=== PATIENT | female | born 1960 | race Hispanic/Latino ===

== ENCOUNTER 2017-03-24 16:58 | Inpatient (IN) | payer MEDICAID ==
[~2017-03-24] VITALS: Ht 167.6 cm; Wt 128.5 kg
[~2017-03-24 16:58] MED LIST: AEC81 PO; ALBU6.7H IH; BUDE10.2 IH; CLOP75TA32 PO; DOXA1TAB2 PO; FURO20TA4 PO; GABA-531 PO; INSLAN SQ; INSU100C14 SQ; METO75TA PO; MONT10TA24 PO; NITR0.4T SL
[2017-03-24 17:28] LABS: BASOPHILS % (AUTO) 0.8 % (0.0-5.0); HEMATOCRIT 23.2 % (36-48); LYMPHOCYTES % (AUTO) 4.6 % (21.0-51.0); MEAN CORPUSCULAR HEMOGLOBIN 28.8 pg (27.0-33.0); MEAN CORPUSCULAR HGB CONC 32.8 g/dL (32.0-36.0); MEAN CORPUSCULAR VOLUME 87.8 fL (79-99); NEUTROPHILS % (AUTO) 83.6 % (40.0-77.0); PLATELET COUNT (AUTO) 224 K/uL (130-400); RED BLOOD CELL COUNT(AUTO) 2.64 MIL/uL (4.00-5.50); RED CELL DISTRIBUTION WIDTH 15.3 % (11.0-15.5); WHITE BLOOD COUNT (AUTO) 6.5 K/uL (4.8-10.8)
[2017-03-24 17:37] LABS: RAPID GROUP A STREP NEGATIVE (NEGATIVE)
[2017-03-24] MEDS ORDERED: IPRATROPIUM/ALBUTEROL SULFATE 3 ML SOLUTION IH ONE (17:37)
[2017-03-24 17:40] LABS: APPEARANCE,URINE Cloudy (CLEAR); BILIRUBIN,URINE Negative (NEGATIVE); COLOR,URINE Yellow (YELLOW); GLUCOSE, URINE (UA) 500 mg/dL (NEGATIVE); KETONES,URINE Negative (NEGATIVE); LEUKOCYTE ESTERASE ,URINE Negative (NEGATIVE); NITRATE,URINE Negative (NEGATIVE); OCCULT BLOOD,URINE Small (NEGATIVE); PROTEIN,URINE >=1000 (NEGATIVE); UROBILINOGEN,URINE 0.2 mg/dL (0.2-1.0)
[2017-03-24 17:48] LABS: BACTERIA,URINE Many /HPF (None Seen); RBC,URINE None Seen /HPF (0-1); WBC,URINE 0-1 /HPF (0-1)
[2017-03-24 17:51] LABS: ALANINE AMINOTRANSFERASE 14 U/L (12-78); ALBUMIN 2.3 g/dL (3.5-5.0); ASPARTATE AMINOTRANSFERASE 26 U/L (10-37); BILIRUBIN,DIRECT < 0.1 mg/dL (0.0-0.3); BILIRUBIN,TOTAL 0.3 mg/dL (0.2-1.0); TOTAL PROTEIN, SERUM 6.6 g/dL (6.0-8.3)
[2017-03-24 17:52] LABS: AMPHET/METH SCREEN,URINE NEGATIVE (NEGATIVE); BARBITURATE SCREEN, URINE NEGATIVE (NEGATIVE); BENZODIAZEPINES SCREEN,URINE NEGATIVE (NEGATIVE); CANNABINOID SCREEN,URINE NEGATIVE (NEGATIVE); COCAINE SCREEN,URINE NEGATIVE (NEGATIVE); OPIATE SCREEN,URINE NEGATIVE (NEGATIVE); PHENCYCLIDINE SCREEN,URINE NEGATIVE (NEGATIVE)
[2017-03-24 17:59] LABS: CREATINE KINASE MB 2.2 ng/mL (0.5-3.6)
[2017-03-24 18:25] LABS: CREATININE 5.5 mg/dL (0.5-1.5)
[2017-03-24 18:26] LABS: POTASSIUM 6.6 mmol/L (3.5-5.1)
[2017-03-24] MEDS ORDERED: SODIUM BICARB 50MEQ 50ML VIAL ONE (18:54)
[2017-03-24] MEDS ORDERED: INSULIN HUMULIN R 100 UNIT/ML 3ML ONE (18:55)
[2017-03-24] MEDS ORDERED: CALCIUM GLUCONATE 1 GM/10 ML VIAL IV ONE (18:56)
[2017-03-24] MEDS ORDERED: NITROGLYCERIN 0.4 MG SL TAB SL PRN (22:30)
[2017-03-24] MEDS ORDERED: ACETAMINOPHEN 325 MG TAB PO PRN ×4 (22:30→22:45)
[2017-03-24] MEDS ORDERED: SODIUM CHLORIDE 0.9% 1000ML 1,000 ML IV SCH (22:30)
[2017-03-24] MEDS ORDERED: CLONIDINE HCL 0.1 MG TABLET PO PRN ×2 (22:30→22:45)
[2017-03-24] MEDS ORDERED: GUAIFENESIN-DM 200/20 MG 10 ML PO PRN (22:30)
[2017-03-24] MEDS ORDERED: LEVOFLOXACIN 500 MG/D5W 100 ML 100 ML IV SCH (22:45)
[2017-03-24] MEDS ORDERED: GLUCAGON 1MG KIT 1 MG ML IM PRN (22:45)
[2017-03-24] MEDS ORDERED: DEXTROSE 50%-WATER 50 ML DISP.SYRIN IV PRN (22:45)
[2017-03-24] MEDS ORDERED: OSELTAMIVIR PHOSPHATE 75 MG CAP PO SCH (23:00)
[2017-03-24] MEDS ORDERED: METHYLPREDNISOLONE SOD SUCC 40MG/ML 1ML ONE (23:28)
[2017-03-24] MEDS ORDERED: OSELTAMIVIR PHOSPHATE 75 MG CAP ONE (23:28)
[2017-03-24] MEDS ORDERED: AZITHROMYCIN 500MG+NS 250ML 250 ML IV ONE (23:28)
[2017-03-25] MEDS ORDERED: LIDOCAINE HCL-MPF 1% 2ML VIAL IVP PRN
[2017-03-25] MEDS ORDERED: ONDANSETRON HCL 4 MG/2 ML VIAL IVP PRN
[2017-03-25] MEDS ORDERED: POTASSIUM CHLORIDE 20MEQ/100ML 100 ML IV PRN
[2017-03-25] MEDS ORDERED: IPRATROPIUM/ALBUTEROL SULFATE 3 ML SOLUTION IH ONE ×3 (00:38→09:09)
[2017-03-25] MEDS: IPRATROPIUM/ALBUTEROL SULFATE 3 ML SOLUTION IH SCH ×5 (00:52→22:34)
[2017-03-25] MEDS ORDERED: HYDRALAZINE HCL 20 MG/ML VIAL ONE (02:31)
[2017-03-25] MEDS ORDERED: ACETAMINOPHEN 325 MG TAB ONE (04:12)
[2017-03-25 07:26] LABS: BASOPHILS % (AUTO) 0.9 % (0.0-5.0); EOSINOPHILS % (AUTO) 0.1 % (0.0-8.0); HEMATOCRIT 23.8 % (36-48); LYMPHOCYTES % (AUTO) 4.5 % (21.0-51.0); MEAN CORPUSCULAR HEMOGLOBIN 28.5 pg (27.0-33.0); MEAN CORPUSCULAR HGB CONC 32.6 g/dL (32.0-36.0); MEAN CORPUSCULAR VOLUME 87.5 fL (79-99); MONOCYTES % (AUTO) 2.9 % (3.0-13.0); NEUTROPHILS % (AUTO) 91.6 % (40.0-77.0); NUCLEATED RED BLOOD CELLS 0.1 % (0.0-0.19); PLATELET COUNT (AUTO) 239 K/uL (130-400); RED BLOOD CELL COUNT(AUTO) 2.72 MIL/uL (4.00-5.50); RED CELL DISTRIBUTION WIDTH 15.9 % (11.0-15.5); WHITE BLOOD COUNT (AUTO) 5.7 K/uL (4.8-10.8)
[2017-03-25] MEDS ORDERED: INSULIN R PO SS1 SQ SCH (07:30)
[2017-03-25] MEDS: INSULIN HUMULIN R 100 UNIT/ML 3ML SQ SCH ×4 (07:30→20:48)
[2017-03-25 07:53] LABS: CREATININE 5.3 mg/dL (0.5-1.5); THYROID STIMULATING HORMONE 2.41 uIU/mL (0.36-3.74)
[2017-03-25 08:06] LABS: HEMOGLOBIN A1C 6.8 % (4.0-6.0)
[2017-03-25 08:33] LABS: RETICULOCYTE % (AUTO) 2.38 % (0.42-2.23)
[2017-03-25 08:34] LABS: % IRON SATURATION 21.1 % (22-44)
[2017-03-25] MEDS ORDERED: INSULIN HUMULIN R 100 UNIT/ML 3ML ONE (08:44)
[2017-03-25 09:08] LABS: POTASSIUM 6.2 mmol/L (3.5-5.1)
[2017-03-25] MEDS ORDERED: FLUT16H NASAL (09:46)
[2017-03-25] MEDS ORDERED: BENZ200C53 PO (09:50)
[2017-03-25] MEDS ORDERED: INSU100I15 SQ ×3 (09:54)
[2017-03-25 09:56] VITALS: BP 179/100
[2017-03-25] MEDS ORDERED: COMPOUND PO MISCELLANEOUS 1 EACH MISC MISC PRN (10:15)
[2017-03-25] MEDS: FLUTICASONE PROPIONATE 50MCG/SPRAY 16 GM BOTTLE EN SCH (10:30)
[2017-03-25] MEDS: METHYLPREDNISOLONE SOD SUCC 125MG/2ML VIAL IVP SCH ×2 (10:35→20:51)
[2017-03-25] MEDS: FAMOTIDINE 20MG TAB 20 MG TAB PO SCH ×2 (10:35→20:52)
[2017-03-25] MEDS: SODIUM POLYSTYRENE SULFONATE 15 GM/60 ML ML PO SCH (10:36)
[2017-03-25] MEDS ORDERED: COMPOUND IV MISC 1 EACH IVSOLN MISC PRN (10:45)
[2017-03-25] MEDS ORDERED: ALBUTEROL SULFATE 0.083% 2.5 MG/3 ML INH IH SCH (12:00)
[2017-03-25 12:04] VITALS: BP 195/96
[2017-03-25] MEDS ORDERED: HALOPERIDOL LACTATE 5 MG/ML VIAL IV PRN (14:30)
[2017-03-25] MEDS ORDERED: SODIUM POLYSTYRENE SULFONATE 15 GM/60 ML ML PO SCH (14:30)
[2017-03-25] MEDS: OSELTAMIVIR SUSP 15 MG/ML (6 CAPS/29ML) PO SCH ×2 (15:54)
[2017-03-25] MEDS: IRON SUCROSE COMPLEX 100 MG in SODIUM CHLORIDE 0.9% 50 ML IV SCH (15:54)
[2017-03-25] MEDS: BENZONATATE 100 MG CAPSULE PO SCH ×2 (15:55→20:53)
[2017-03-25] MEDS: FUROSEMIDE 10 MG/ML 10ML VIAL IVP SCH ×2 (15:58→20:51)
[2017-03-25 16:30] VITALS: BP 183/97
[2017-03-25] MEDS: AZITHROMYCIN 500MG+NS 250ML 250 ML IV SCH (20:51)
[2017-03-25] MEDS: DOXAZOSIN MESYLATE 2 MG TABLET PO SCH (20:52)
[2017-03-25] MEDS: METOPROLOL TARTRATE 50 MG TAB PO SCH (20:52)
[2017-03-25] MEDS: BUDESONIDE 0.5 MG/2 ML INH IH SCH (22:33)
[2017-03-25 22:45] VITALS: BP 163/84
[2017-03-26 00:25] VITALS: BP 143/71
[2017-03-26] MEDS: IPRATROPIUM/ALBUTEROL SULFATE 3 ML SOLUTION IH SCH ×7 (02:34→22:00)
[2017-03-26 03:08] VITALS: BP 145/81
[2017-03-26 04:22] LABS: CREATININE 5.6 mg/dL (0.5-1.5); MAGNESIUM 1.7 mg/dL (1.80-2.40); PHOSPHORUS 5.8 mg/dL (2.5-4.9); POTASSIUM 4.9 mmol/L (3.5-5.1)
[2017-03-26 04:37] LABS: % IRON SATURATION 54.3 % (22-44)
[2017-03-26 05:43] LABS: BASOPHILS % (AUTO) 0.4 % (0.0-5.0); HEMATOCRIT 24.1 % (36-48); LYMPHOCYTES % (AUTO) 6.3 % (21.0-51.0); MEAN CORPUSCULAR HGB CONC 33.3 g/dL (32.0-36.0); MEAN CORPUSCULAR VOLUME 86.8 fL (79-99); MONOCYTES % (AUTO) 5.8 % (3.0-13.0); NEUTROPHILS % (AUTO) 87.5 % (40.0-77.0); PLATELET COUNT (AUTO) 268 K/uL (130-400); RED BLOOD CELL COUNT(AUTO) 2.78 MIL/uL (4.00-5.50); RED CELL DISTRIBUTION WIDTH 15.3 % (11.0-15.5); WHITE BLOOD COUNT (AUTO) 8.7 K/uL (4.8-10.8)
[2017-03-26] MEDS: BUDESONIDE 0.5 MG/2 ML INH IH SCH ×2 (06:28→18:00)
[2017-03-26] MEDS: INSULIN HUMULIN R 100 UNIT/ML 3ML SQ SCH ×4 (07:30→21:27)
[2017-03-26] MEDS: METHYLPREDNISOLONE SOD SUCC 125MG/2ML VIAL IVP SCH ×2 (08:37→21:08)
[2017-03-26] MEDS: GABAPENTIN 300 MG CAPSULE PO SCH (08:37)
[2017-03-26] MEDS: FOLIC ACID/VITAMIN B COMP W-C 1 MG CAPSULE PO SCH (08:37)
[2017-03-26] MEDS: FAMOTIDINE 20MG TAB 20 MG TAB PO SCH ×2 (08:38→21:10)
[2017-03-26] MEDS: MONTELUKAST SODIUM 10 MG TAB PO SCH (08:38)
[2017-03-26] MEDS: METOPROLOL TARTRATE 50 MG TAB PO SCH ×2 (08:38→21:09)
[2017-03-26] MEDS: FLUTICASONE PROPIONATE 50MCG/SPRAY 16 GM BOTTLE EN SCH (08:46)
[2017-03-26] MEDS ORDERED: FUROSEMIDE 20 MG TABLET PO SCH (09:00)
[2017-03-26] MEDS: INSULIN GLARGINE 100 UNITS/ML 10 ML VIAL SQ SCH (09:09)
[2017-03-26] MEDS: FUROSEMIDE 10 MG/ML 10ML VIAL IVP SCH ×2 (10:12→21:08)
[2017-03-26] MEDS: BENZONATATE 100 MG CAPSULE PO SCH ×3 (10:12→21:10)
[2017-03-26] MEDS: OSELTAMIVIR SUSP 15 MG/ML (6 CAPS/29ML) PO SCH ×2 (10:13)
[2017-03-26] MEDS: IRON SUCROSE COMPLEX 100 MG in SODIUM CHLORIDE 0.9% 50 ML IV SCH (10:13)
[2017-03-26] MEDS: SODIUM POLYSTYRENE SULFONATE 15 GM/60 ML ML PO SCH (12:02)
[2017-03-26] MEDS ORDERED: LORAZEPAM 0.5 MG TABLET PO PRN (15:00)
[2017-03-26] MEDS: FERROUS SULFATE 325 MG TABLET.DR PO SCH (17:37)
[2017-03-26] MEDS: EPOETIN ALFA 10,000 UNIT/ML VIAL SQ SCH ×2 (18:15→18:17)
[2017-03-26] MEDS: AZITHROMYCIN 500MG+NS 250ML 250 ML IV SCH (21:08)
[2017-03-26] MEDS: DOXAZOSIN MESYLATE 2 MG TABLET PO SCH (21:11)
[2017-03-27] MEDS: IPRATROPIUM/ALBUTEROL SULFATE 3 ML SOLUTION IH SCH ×6 (02:11→21:40)
[2017-03-27 03:23] LABS: HEMATOCRIT 22.5 % (36-48); MEAN CORPUSCULAR HEMOGLOBIN 27.7 pg (27.0-33.0); MEAN CORPUSCULAR HGB CONC 32.1 g/dL (32.0-36.0); MEAN CORPUSCULAR VOLUME 86.1 fL (79-99); NUCLEATED RED BLOOD CELLS 0.2 % (0.0-0.19); PLATELET COUNT (AUTO) 284 K/uL (130-400); RED BLOOD CELL COUNT(AUTO) 2.62 MIL/uL (4.00-5.50); RED CELL DISTRIBUTION WIDTH 15.1 % (11.0-15.5); WHITE BLOOD COUNT (AUTO) 11.7 K/uL (4.8-10.8)
[2017-03-27 03:34] LABS: CREATININE 6.3 mg/dL (0.5-1.5); POTASSIUM 4.1 mmol/L (3.5-5.1)
[2017-03-27 03:39] LABS: BAND NEUTROPHILS % (MANUAL) 25 % (0-2); LYMPHOCYTES % (MANUAL) 9 % (22-44); MAN.DIFF COMMENT-IMPRESSION MANUAL DIFFERENTIAL; MONOCYTES % (MANUAL) 2 % (2-9); SEGMENTED NEUTROPHILS % 64 % (40-70)
[2017-03-27 03:40] LABS: PLATELET MORPHOLOGY COMMENT ADEQUATE
[2017-03-27 04:00] VITALS: BP 158/85
[2017-03-27] MEDS: INSULIN GLARGINE 100 UNITS/ML 10 ML VIAL SQ SCH (06:44)
[2017-03-27] MEDS: INSULIN HUMULIN R 100 UNIT/ML 3ML SQ SCH ×4 (06:46→21:44)
[2017-03-27] MEDS: BUDESONIDE 0.5 MG/2 ML INH IH SCH ×2 (07:50→19:24)
[2017-03-27 08:00] VITALS: BP 165/92
[2017-03-27] MEDS: FOLIC ACID/VITAMIN B COMP W-C 1 MG CAPSULE PO SCH (09:04)
[2017-03-27] MEDS: FUROSEMIDE 10 MG/ML 10ML VIAL IVP SCH (09:04)
[2017-03-27] MEDS: FERROUS SULFATE 325 MG TABLET.DR PO SCH ×2 (09:04→17:09)
[2017-03-27] MEDS: METHYLPREDNISOLONE SOD SUCC 125MG/2ML VIAL IVP SCH ×2 (09:04→21:40)
[2017-03-27] MEDS: FAMOTIDINE 20MG TAB 20 MG TAB PO SCH ×2 (09:05→21:41)
[2017-03-27] MEDS: HYDROCODONE/ACETAMINOPHEN 5/325 MG TAB PO PRN ×2 (09:05→18:45)
[2017-03-27] MEDS: GABAPENTIN 300 MG CAPSULE PO SCH (09:05)
[2017-03-27] MEDS: METOPROLOL TARTRATE 50 MG TAB PO SCH ×2 (09:05→21:41)
[2017-03-27] MEDS: MONTELUKAST SODIUM 10 MG TAB PO SCH (09:05)
[2017-03-27] MEDS: BENZONATATE 100 MG CAPSULE PO SCH ×3 (09:05→21:41)
[2017-03-27] MEDS: IRON SUCROSE COMPLEX 100 MG in SODIUM CHLORIDE 0.9% 50 ML IV SCH (09:06)
[2017-03-27] MEDS: FLUTICASONE PROPIONATE 50MCG/SPRAY 16 GM BOTTLE EN SCH (09:06)
[2017-03-27] MEDS: OSELTAMIVIR SUSP 15 MG/ML (6 CAPS/29ML) PO SCH ×2 (09:08)
[2017-03-27] MEDS: ACETYLCYSTEINE 20% 200MG/ML 4ML VIAL IH SCH ×2 (10:30→21:40)
[2017-03-27] MEDS: SODIUM POLYSTYRENE SULFONATE 15 GM/60 ML ML PO SCH (10:49)
[2017-03-27 11:00] VITALS: BP 185/85
[2017-03-27] MEDS ORDERED: PHARMACY COMMUNICATION MISC SCH (14:00)
[2017-03-27] MEDS ORDERED: MAG HYDROX/AL HYDROX/SIMETH 30 ML, LIDOCAINE HCL 2% VISCOUS 30 ML, DIPHENHYDRAMINE HCL ... PO PRN ×3 (14:15)
[2017-03-27 15:51] VITALS: BP 160/81
[2017-03-27] MEDS: FUROSEMIDE 80 MG TABLET PO SCH (17:09)
[2017-03-27 19:15] VITALS: BP 184/71
[2017-03-27] MEDS: AZITHROMYCIN 500MG+NS 250ML 250 ML IV SCH (21:40)
[2017-03-27] MEDS: DOXAZOSIN MESYLATE 2 MG TABLET PO SCH (21:41)
[2017-03-27 23:05] VITALS: BP 185/85
[2017-03-28] VITALS (7 sets, daily range): BP systolic 138–171; BP diastolic 75–96
[2017-03-28] MEDS: HYDRALAZINE HCL 20 MG/ML VIAL IV PRN (00:01)
[2017-03-28] MEDS: IPRATROPIUM/ALBUTEROL SULFATE 3 ML SOLUTION IH SCH ×3 (02:09→09:55)
[2017-03-28 05:49] LABS: HEMATOCRIT 23.5 % (36-48); MEAN CORPUSCULAR HEMOGLOBIN 28.8 pg (27.0-33.0); MEAN CORPUSCULAR HGB CONC 33.5 g/dL (32.0-36.0); MEAN CORPUSCULAR VOLUME 85.9 fL (79-99); PLATELET COUNT (AUTO) 296 K/uL (130-400); RED BLOOD CELL COUNT(AUTO) 2.73 MIL/uL (4.00-5.50); WHITE BLOOD COUNT (AUTO) 14.1 K/uL (4.8-10.8)
[2017-03-28 05:56] LABS: CREATININE 6.6 mg/dL (0.5-1.5); POTASSIUM 3.1 mmol/L (3.5-5.1)
[2017-03-28] MEDS: BUDESONIDE 0.5 MG/2 ML INH IH SCH ×2 (06:00→18:50)
[2017-03-28 06:02] LABS: B-TYPE NATRIURETIC PEPTIDE 823 pg/mL (0-100)
[2017-03-28] MEDS: INSULIN HUMULIN R 100 UNIT/ML 3ML SQ SCH ×4 (07:02→22:16)
[2017-03-28 07:12] LABS: BAND NEUTROPHILS % (MANUAL) 2 % (0-2); LYMPHOCYTES % (MANUAL) 7 % (22-44); MONOCYTES % (MANUAL) 3 % (2-9); SEGMENTED NEUTROPHILS % 88 % (40-70)
[2017-03-28 07:14] LABS: MAN.DIFF COMMENT-IMPRESSION MANUAL DIFFERENTIAL
[2017-03-28 07:15] LABS: PLATELET MORPHOLOGY COMMENT ADEQUATE
[2017-03-28] MEDS: FOLIC ACID/VITAMIN B COMP W-C 1 MG CAPSULE PO SCH (08:27)
[2017-03-28] MEDS: METHYLPREDNISOLONE SOD SUCC 125MG/2ML VIAL IVP SCH ×2 (08:27→22:23)
[2017-03-28] MEDS: BENZONATATE 100 MG CAPSULE PO SCH ×3 (08:28→22:23)
[2017-03-28] MEDS: FERROUS SULFATE 325 MG TABLET.DR PO SCH ×2 (08:29→16:51)
[2017-03-28] MEDS: GABAPENTIN 300 MG CAPSULE PO SCH (08:29)
[2017-03-28] MEDS: FAMOTIDINE 20MG TAB 20 MG TAB PO SCH ×2 (08:29→22:23)
[2017-03-28] MEDS: METOPROLOL TARTRATE 50 MG TAB PO SCH ×2 (08:30→22:27)
[2017-03-28] MEDS: FUROSEMIDE 80 MG TABLET PO SCH ×2 (08:31→16:52)
[2017-03-28] MEDS: OSELTAMIVIR SUSP 15 MG/ML (6 CAPS/29ML) PO SCH ×2 (08:32)
[2017-03-28] MEDS: INSULIN GLARGINE 100 UNITS/ML 10 ML VIAL SQ SCH (08:55)
[2017-03-28] MEDS: ACETYLCYSTEINE 20% 200MG/ML 4ML VIAL IH SCH ×2 (09:00→21:00)
[2017-03-28] MEDS: FLUTICASONE PROPIONATE 50MCG/SPRAY 16 GM BOTTLE EN SCH (09:00)
[2017-03-28] MEDS: IRON SUCROSE COMPLEX 100 MG in SODIUM CHLORIDE 0.9% 50 ML IV SCH (09:24)
[2017-03-28] MEDS: MONTELUKAST SODIUM 10 MG TAB PO SCH (09:24)
[2017-03-28] MEDS: IPRATROPIUM 0.5 MG/2.5 ML INH IH SCH ×2 (11:05→18:50)
[2017-03-28] MEDS ORDERED: PHARMACY COMMUNICATION MISC SCH (13:30)
[2017-03-28] MEDS ORDERED: POTASSIUM CHLORIDE 10% ELIXIR 20 MEQ/15 ML UDCUP PO PRN (14:30)
[2017-03-28] MEDS ORDERED: LIDOCAINE HCL-MPF 1% 2ML VIAL IV PRN (14:30)
[2017-03-28] MEDS ORDERED: POTASSIUM CHLORIDE 10MEQ/100ML 100 ML IV PRN (14:30)
[2017-03-28] MEDS: POTASSIUM CHLORIDE 10 MEQ/TAB.SR PO PRN ×2 (15:53→19:48)
[2017-03-28] MEDS: AZITHROMYCIN 500MG+NS 250ML 250 ML IV SCH (22:17)
[2017-03-28] MEDS: DOXAZOSIN MESYLATE 2 MG TABLET PO SCH (22:27)
[2017-03-29] MEDS: LACTULOSE 20 GM/30 ML UDCUP PO PRN ×2 (00:41→07:26)
[2017-03-29] MEDS: POTASSIUM CHLORIDE 10 MEQ/TAB.SR PO PRN ×3 (00:41→14:43)
[2017-03-29 03:15] VITALS: BP 138/76
[2017-03-29] MEDS: HYDROCODONE/ACETAMINOPHEN 5/325 MG TAB PO PRN ×2 (03:26→18:25)
[2017-03-29 04:00] LABS: HEMATOCRIT 24.2 % (36-48); MEAN CORPUSCULAR HEMOGLOBIN 27.7 pg (27.0-33.0); MEAN CORPUSCULAR HGB CONC 32.5 g/dL (32.0-36.0); MEAN CORPUSCULAR VOLUME 85.4 fL (79-99); PLATELET COUNT (AUTO) 336 K/uL (130-400); RED BLOOD CELL COUNT(AUTO) 2.83 MIL/uL (4.00-5.50); RED CELL DISTRIBUTION WIDTH 14.9 % (11.0-15.5); WHITE BLOOD COUNT (AUTO) 15.2 K/uL (4.8-10.8)
[2017-03-29 04:17] LABS: CREATININE 7.2 mg/dL (0.5-1.5); MAGNESIUM 1.6 mg/dL (1.80-2.40); POTASSIUM 3.2 mmol/L (3.5-5.1)
[2017-03-29 04:27] LABS: B-TYPE NATRIURETIC PEPTIDE 746 pg/mL (0-100)
[2017-03-29] MEDS: BUDESONIDE 0.5 MG/2 ML INH IH SCH ×2 (06:00→18:00)
[2017-03-29] MEDS: IPRATROPIUM 0.5 MG/2.5 ML INH IH SCH ×5 (06:00→23:15)
[2017-03-29] MEDS: INSULIN HUMULIN R 100 UNIT/ML 3ML SQ SCH ×4 (06:23→21:00)
[2017-03-29] MEDS: ACETYLCYSTEINE 20% 200MG/ML 4ML VIAL IH SCH ×2 (06:40→19:07)
[2017-03-29] MEDS: INSULIN GLARGINE 100 UNITS/ML 10 ML VIAL SQ SCH (07:25)
[2017-03-29 07:53] VITALS: BP 123/77
[2017-03-29] MEDS: IRON SUCROSE COMPLEX 100 MG in SODIUM CHLORIDE 0.9% 50 ML IV SCH (09:00)
[2017-03-29] MEDS: FERROUS SULFATE 325 MG TABLET.DR PO SCH ×2 (10:27→18:24)
[2017-03-29] MEDS: MONTELUKAST SODIUM 10 MG TAB PO SCH (10:29)
[2017-03-29] MEDS: FOLIC ACID/VITAMIN B COMP W-C 1 MG CAPSULE PO SCH (10:29)
[2017-03-29] MEDS: METOPROLOL TARTRATE 50 MG TAB PO SCH ×2 (10:29→21:55)
[2017-03-29] MEDS: BENZONATATE 100 MG CAPSULE PO SCH ×3 (10:29→22:41)
[2017-03-29] MEDS: FUROSEMIDE 80 MG TABLET PO SCH ×2 (10:29→18:24)
[2017-03-29] MEDS: FAMOTIDINE 20MG TAB 20 MG TAB PO SCH ×2 (10:29→21:55)
[2017-03-29] MEDS: OSELTAMIVIR SUSP 15 MG/ML (6 CAPS/29ML) PO SCH ×2 (10:30)
[2017-03-29] MEDS: GABAPENTIN 300 MG CAPSULE PO SCH (10:30)
[2017-03-29] MEDS: FLUTICASONE PROPIONATE 50MCG/SPRAY 16 GM BOTTLE EN SCH (10:32)
[2017-03-29 11:00] VITALS: BP 140/75
[2017-03-29 16:00] VITALS: BP 146/72
[2017-03-29 19:20] VITALS: BP 156/73
[2017-03-29] MEDS: AZITHROMYCIN 500MG+NS 250ML 250 ML IV SCH (21:54)
[2017-03-29] MEDS: DOXAZOSIN MESYLATE 2 MG TABLET PO SCH (21:55)
[2017-03-29 22:58] VITALS: BP 139/63
[2017-03-30 04:13] VITALS: BP 138/68
[2017-03-30] MEDS: INSULIN HUMULIN R 100 UNIT/ML 3ML SQ SCH ×4 (06:11→21:00)
[2017-03-30 06:35] LABS: HEMATOCRIT 23.3 % (36-48); MEAN CORPUSCULAR HEMOGLOBIN 28.5 pg (27.0-33.0); MEAN CORPUSCULAR HGB CONC 32.7 g/dL (32.0-36.0); MEAN CORPUSCULAR VOLUME 87.1 fL (79-99); PLATELET COUNT (AUTO) 309 K/uL (130-400); RED BLOOD CELL COUNT(AUTO) 2.67 MIL/uL (4.00-5.50); WHITE BLOOD COUNT (AUTO) 14.8 K/uL (4.8-10.8)
[2017-03-30 06:44] LABS: POTASSIUM 3.3 mmol/L (3.5-5.1)
[2017-03-30 06:48] LABS: CREATININE 8.2 mg/dL (0.5-1.5)
[2017-03-30 07:00] VITALS: BP 128/53
[2017-03-30] MEDS: IPRATROPIUM 0.5 MG/2.5 ML INH IH SCH ×4 (07:19→23:37)
[2017-03-30] MEDS: ACETYLCYSTEINE 20% 200MG/ML 4ML VIAL IH SCH ×2 (07:20→18:31)
[2017-03-30] MEDS: INSULIN GLARGINE 100 UNITS/ML 10 ML VIAL SQ SCH (07:43)
[2017-03-30 07:45] LABS: EOSINOPHILS % (MANUAL) 2 % (1-6); LYMPHOCYTES % (MANUAL) 18 % (22-44); MAN.DIFF COMMENT-IMPRESSION MANUAL DIFFERENTIAL; MONOCYTES % (MANUAL) 8 % (2-9); PLATELET MORPHOLOGY COMMENT ADEQUATE; SEGMENTED NEUTROPHILS % 72 % (40-70)
[2017-03-30] MEDS: BUDESONIDE 0.5 MG/2 ML INH IH SCH ×2 (07:49→18:45)
[2017-03-30] MEDS: FERROUS SULFATE 325 MG TABLET.DR PO SCH ×2 (09:01→16:21)
[2017-03-30] MEDS: PREDNISONE 20 MG TABLET PO SCH (09:01)
[2017-03-30] MEDS: POTASSIUM CHLORIDE 10 MEQ/TAB.SR PO PRN (09:02)
[2017-03-30] MEDS: METOPROLOL TARTRATE 50 MG TAB PO SCH ×2 (09:02→21:27)
[2017-03-30] MEDS: GABAPENTIN 300 MG CAPSULE PO SCH (09:02)
[2017-03-30] MEDS: FOLIC ACID/VITAMIN B COMP W-C 1 MG CAPSULE PO SCH (09:03)
[2017-03-30] MEDS: FAMOTIDINE 20MG TAB 20 MG TAB PO SCH ×2 (09:03→21:28)
[2017-03-30] MEDS: MONTELUKAST SODIUM 10 MG TAB PO SCH (09:03)
[2017-03-30] MEDS: HYDROCODONE/ACETAMINOPHEN 5/325 MG TAB PO PRN (09:03)
[2017-03-30] MEDS: FLUTICASONE PROPIONATE 50MCG/SPRAY 16 GM BOTTLE EN SCH (09:04)
[2017-03-30] MEDS: OSELTAMIVIR SUSP 15 MG/ML (6 CAPS/29ML) PO SCH ×2 (09:04)
[2017-03-30] MEDS: IRON SUCROSE COMPLEX 100 MG in SODIUM CHLORIDE 0.9% 50 ML IV SCH (09:19)
[2017-03-30] MEDS: BENZONATATE 100 MG CAPSULE PO SCH ×3 (09:21→21:27)
[2017-03-30] MEDS: FUROSEMIDE 10 MG/ML 4ML VIAL IV SCH ×2 (09:22→16:46)
[2017-03-30 11:58] VITALS: BP 122/51
[2017-03-30 16:30] VITALS: BP 98/47
[2017-03-30 20:36] VITALS: BP 128/59
[2017-03-30] MEDS: AZITHROMYCIN 500MG+NS 250ML 250 ML IV SCH (21:27)
[2017-03-30] MEDS: DOXAZOSIN MESYLATE 2 MG TABLET PO SCH (21:28)
[2017-03-31] VITALS (14 sets, daily range): BP systolic 70–138; BP diastolic 45–96
[2017-03-31 05:47] LABS: INR 1.03 (0.85-1.15); PARTIAL THROMBOPLASTIN TIME 31.4 SEC (26.3-35.5); PROTHROMBIN TIME 10.8 SEC (9.6-11.6)
[2017-03-31 05:48] LABS: ALANINE AMINOTRANSFERASE 20 U/L (12-78); ALBUMIN 2.2 g/dL (3.5-5.0); ASPARTATE AMINOTRANSFERASE 19 U/L (10-37); BILIRUBIN,DIRECT 0.1 mg/dL (0.0-0.3); BILIRUBIN,TOTAL 0.2 mg/dL (0.2-1.0); CARBON DIOXIDE 22 mmol/L (21-32); CHLORIDE 95 mmol/L (101-111); CHOLESTEROL 324 mg/dL (<200); GLOMERULAR FILTR. RATE CALC 5 mL/min (>60); GLUCOSE,RANDOM 93 mg/dL (70-105); HDL CHOLESTEROL 56 mg/dL (35-85); LDL DIRECT 173 mg/dL (0-99); POTASSIUM 3.8 mmol/L (3.5-5.1); SODIUM SERUM 137 mmol/L (136-145); TRIGLYCERIDES 494 mg/dL (30-200)
[2017-03-31 05:57] LABS: HEMATOCRIT 23.4 % (36-48); MEAN CORPUSCULAR HEMOGLOBIN 27.6 pg (27.0-33.0); MEAN CORPUSCULAR HGB CONC 32.1 g/dL (32.0-36.0); MEAN CORPUSCULAR VOLUME 85.9 fL (79-99); NUCLEATED RED BLOOD CELLS 0.1 % (0.0-0.19); PLATELET COUNT (AUTO) 265 K/uL (130-400); RED BLOOD CELL COUNT(AUTO) 2.73 MIL/uL (4.00-5.50); RED CELL DISTRIBUTION WIDTH 15.1 % (11.0-15.5); WHITE BLOOD COUNT (AUTO) 14.8 K/uL (4.8-10.8)
[2017-03-31 06:00] LABS: AMMONIA 12 umol/L (11-32)
[2017-03-31 06:01] LABS: B-TYPE NATRIURETIC PEPTIDE 443 pg/mL (0-100); CREATININE 9.3 mg/dL (0.5-1.5); UREA NITROGEN, BLOOD 122 mg/dL (7-18)
[2017-03-31] MEDS: INSULIN HUMULIN R 100 UNIT/ML 3ML SQ SCH ×4 (06:02→20:49)
[2017-03-31] MEDS: ACETYLCYSTEINE 20% 200MG/ML 4ML VIAL IH SCH ×2 (06:24→18:43)
[2017-03-31] MEDS: IPRATROPIUM 0.5 MG/2.5 ML INH IH SCH ×3 (06:24→18:43)
[2017-03-31] MEDS: BUDESONIDE 0.5 MG/2 ML INH IH SCH ×2 (06:49→19:33)
[2017-03-31 07:20] LABS: BAND NEUTROPHILS % (MANUAL) 1 % (0-2); LYMPHOCYTES % (MANUAL) 5 % (22-44); MAN.DIFF COMMENT-IMPRESSION MANUAL DIFFERENTIAL; MONOCYTES % (MANUAL) 6 % (2-9); PLATELET MORPHOLOGY COMMENT ADEQUATE; SEGMENTED NEUTROPHILS % 88 % (40-70)
[2017-03-31] MEDS: INSULIN GLARGINE 100 UNITS/ML 10 ML VIAL SQ SCH (07:30)
[2017-03-31] MEDS: FUROSEMIDE 10 MG/ML 4ML VIAL IV SCH (08:00)
[2017-03-31] MEDS: FERROUS SULFATE 325 MG TABLET.DR PO SCH ×2 (08:00→14:20)
[2017-03-31] MEDS: METOPROLOL TARTRATE 50 MG TAB PO SCH (09:00)
[2017-03-31] MEDS ORDERED: HEPARIN SODIUM 1000UNIT/ML 10ML VIAL ONE (09:13)
[2017-03-31] MEDS ORDERED: LIDOCAINE HCL 2% 20ML ONE ×2 (09:14→09:15)
[2017-03-31] MEDS ORDERED: SODIUM BICARB 50MEQ 50ML VIAL ONE (09:14)
[2017-03-31] MEDS: BENZONATATE 100 MG CAPSULE PO SCH ×3 (14:00→20:43)
[2017-03-31] MEDS: FLUTICASONE PROPIONATE 50MCG/SPRAY 16 GM BOTTLE EN SCH (14:18)
[2017-03-31] MEDS: FOLIC ACID/VITAMIN B COMP W-C 1 MG CAPSULE PO SCH (14:19)
[2017-03-31] MEDS: GABAPENTIN 300 MG CAPSULE PO SCH (14:19)
[2017-03-31] MEDS: FAMOTIDINE 20MG TAB 20 MG TAB PO SCH ×2 (14:20→20:43)
[2017-03-31] MEDS: MONTELUKAST SODIUM 10 MG TAB PO SCH (14:20)
[2017-03-31] MEDS: PREDNISONE 20 MG TABLET PO SCH (14:21)
[2017-03-31] MEDS: IRON SUCROSE COMPLEX 100 MG in SODIUM CHLORIDE 0.9% 50 ML IV SCH (14:21)
[2017-03-31] MEDS: SODIUM CHLORIDE 0.9% 1000ML 1,000 ML IV SCH (14:36)
[2017-03-31] MEDS ORDERED: SODIUM CHLORIDE 0.9% 1000ML 1,000 ML IV PRN (14:36)
[2017-03-31] MEDS ORDERED: HEPARIN SODIUM 5000UNIT/ML 1ML VIAL IJ PRN (14:45)
[2017-03-31 14:59] LABS: HEMATOCRIT 22.6 % (36-48)
[2017-03-31 15:12] LABS: ALBUMIN 2.2 g/dL (3.5-5.0)
[2017-03-31 15:18] LABS: CREATININE 9.7 mg/dL (0.5-1.5)
[2017-03-31 15:28] LABS: HEMOGLOBIN A1C 7.6 % (4.0-6.0)
[2017-03-31 16:44] LABS: % IRON SATURATION 84.2 % (22-44)
[2017-03-31] MEDS: DOXAZOSIN MESYLATE 2 MG TABLET PO SCH (20:43)
[2017-03-31] MEDS: AZITHROMYCIN 500MG+NS 250ML 250 ML IV SCH (20:43)
[2017-03-31] MEDS: HYDROCODONE/ACETAMINOPHEN 5/325 MG TAB PO PRN (20:43)
[2017-03-31] MEDS ORDERED: MIDODRINE HCL 5 MG TABLET ONE (23:28)
[2017-03-31] MEDS ORDERED: MIDODRINE HCL 5 MG TABLET PO SCH (23:30)
[2017-04-01] VITALS (34 sets, daily range): BP systolic 73–193; BP diastolic 37–103
[2017-04-01] MEDS: IPRATROPIUM 0.5 MG/2.5 ML INH IH SCH ×5 (00:32→23:35)
[2017-04-01 04:03] LABS: HEMATOCRIT 22.3 % (36-48); MEAN CORPUSCULAR HEMOGLOBIN 29.1 pg (27.0-33.0); MEAN CORPUSCULAR HGB CONC 33.7 g/dL (32.0-36.0); MEAN CORPUSCULAR VOLUME 86.5 fL (79-99); NUCLEATED RED BLOOD CELLS 0.4 % (0.0-0.19); PLATELET COUNT (AUTO) 257 K/uL (130-400); RED BLOOD CELL COUNT(AUTO) 2.58 MIL/uL (4.00-5.50); RED CELL DISTRIBUTION WIDTH 15.2 % (11.0-15.5); WHITE BLOOD COUNT (AUTO) 13.2 K/uL (4.8-10.8)
[2017-04-01 04:19] LABS: BAND NEUTROPHILS % (MANUAL) 2 % (0-2); EOSINOPHILS % (MANUAL) 1 % (1-6); LYMPHOCYTES % (MANUAL) 13 % (22-44); MAN.DIFF COMMENT-IMPRESSION MANUAL DIFFERENTIAL; MONOCYTES % (MANUAL) 8 % (2-9); SEGMENTED NEUTROPHILS % 76 % (40-70)
[2017-04-01 04:20] LABS: PLATELET MORPHOLOGY COMMENT ADEQUATE
[2017-04-01 04:27] LABS: CARBON DIOXIDE 22 mmol/L (21-32); CHLORIDE 94 mmol/L (101-111); GLOMERULAR FILTR. RATE CALC 4 mL/min (>60); GLUCOSE,RANDOM 102 mg/dL (70-105); PHOSPHORUS 14.6 mg/dL (2.5-4.9); POTASSIUM 3.8 mmol/L (3.5-5.1); SODIUM SERUM 135 mmol/L (136-145)
[2017-04-01 04:40] LABS: UREA NITROGEN, BLOOD 131 mg/dL (7-18)
[2017-04-01 04:41] LABS: CREATININE 10.5 mg/dL (0.5-1.5)
[2017-04-01] MEDS: INSULIN HUMULIN R 100 UNIT/ML 3ML SQ SCH ×4 (05:18→21:00)
[2017-04-01] MEDS: BUDESONIDE 0.5 MG/2 ML INH IH SCH ×2 (06:39→19:21)
[2017-04-01] MEDS: ACETYLCYSTEINE 20% 200MG/ML 4ML VIAL IH SCH ×2 (06:39→23:35)
[2017-04-01] MEDS ORDERED: ALBUMIN (HUMAN) 25% 100 ML IV PRN (06:45)
[2017-04-01] MEDS ORDERED: SODIUM CHLORIDE 0.9% 1000ML 1,000 ML IV PRN (06:45)
[2017-04-01] MEDS ORDERED: 0.9% SODIUM CHLORIDE 250 ML IV BAG IV PRN (06:45)
[2017-04-01] MEDS ORDERED: HEPARIN SODIUM 5000UNIT/ML 1ML VIAL IJ PRN (06:45)
[2017-04-01] MEDS: INSULIN GLARGINE 100 UNITS/ML 10 ML VIAL SQ SCH ×2 (07:30→07:48)
[2017-04-01] MEDS: FERROUS SULFATE 325 MG TABLET.DR PO SCH ×2 (08:00→17:00)
[2017-04-01 08:16] LABS: ABG BASE EXCESS -13.5 mmol/L (-2.0-3.0); ABG HCO3 14.4 mmol/L (21.0-28.0); ABG OXYGEN SATURATION 97.5 % (95.0-99.0); ABG PCO2 40 mmHg (32-45)
[2017-04-01] MEDS: BENZONATATE 100 MG CAPSULE PO SCH ×3 (09:00→21:00)
[2017-04-01] MEDS: FAMOTIDINE 20MG TAB 20 MG TAB PO SCH ×2 (09:00→21:00)
[2017-04-01] MEDS: GABAPENTIN 300 MG CAPSULE PO SCH (09:00)
[2017-04-01] MEDS ORDERED: MIDODRINE HCL 5 MG TABLET PO SCH (09:00)
[2017-04-01] MEDS: PREDNISONE 20 MG TABLET PO SCH (09:00)
[2017-04-01] MEDS: FLUTICASONE PROPIONATE 50MCG/SPRAY 16 GM BOTTLE EN SCH (09:00)
[2017-04-01] MEDS ORDERED: EPOETIN ALFA 3,000 UNIT/ML ML SQ SCH (09:00)
[2017-04-01] MEDS: FOLIC ACID/VITAMIN B COMP W-C 1 MG CAPSULE PO SCH (09:00)
[2017-04-01] MEDS: MONTELUKAST SODIUM 10 MG TAB PO SCH (09:00)
[2017-04-01] MEDS: SODIUM CHLORIDE 0.9% 1000ML 1,000 ML IV SCH (09:52)
[2017-04-01] MEDS ORDERED: DOPAMINE 800MG/D5 250ML 250 ML IV ONE (10:06)
[2017-04-01] MEDS ORDERED: DOPAMINE HCL 800 MG in SODIUM CHLORIDE 0.9% 240 ML IV PRN (10:15)
[2017-04-01] MEDS: IRON SUCROSE COMPLEX 100 MG in SODIUM CHLORIDE 0.9% 50 ML IV SCH (17:16)
[2017-04-01] MEDS ORDERED: AZITHROMYCIN 500MG+NS 250ML 250 ML IV SCH (19:12)
[2017-04-01] MEDS: DOXAZOSIN MESYLATE 2 MG TABLET PO SCH (21:00)
[2017-04-02] VITALS (13 sets, daily range): BP systolic 123–170; BP diastolic 54–87
[2017-04-02 03:58] LABS: HEMATOCRIT 21.1 % (36-48); MEAN CORPUSCULAR HEMOGLOBIN 29.2 pg (27.0-33.0); MEAN CORPUSCULAR HGB CONC 34.2 g/dL (32.0-36.0); MEAN CORPUSCULAR VOLUME 85.3 fL (79-99); NUCLEATED RED BLOOD CELLS 0.2 % (0.0-0.19); PLATELET COUNT (AUTO) 233 K/uL (130-400); RED BLOOD CELL COUNT(AUTO) 2.48 MIL/uL (4.00-5.50); WHITE BLOOD COUNT (AUTO) 13.1 K/uL (4.8-10.8)
[2017-04-02 04:18] LABS: ALBUMIN 2.3 g/dL (3.5-5.0); BILIRUBIN,TOTAL 0.3 mg/dL (0.2-1.0); PHOSPHORUS 11.2 mg/dL (2.5-4.9); POTASSIUM 3.3 mmol/L (3.5-5.1)
[2017-04-02 04:20] LABS: CREATININE 9.1 mg/dL (0.5-1.5)
[2017-04-02] MEDS ORDERED: 0.9% SODIUM CHLORIDE 250 ML IV BAG IV PRN (06:00)
[2017-04-02] MEDS ORDERED: HEPARIN SODIUM 5000UNIT/ML 1ML VIAL IJ PRN (06:00)
[2017-04-02] MEDS ORDERED: SODIUM CHLORIDE 0.9% 1000ML 1,000 ML IV PRN (06:00)
[2017-04-02] MEDS ORDERED: ALBUMIN (HUMAN) 25% 100 ML IV PRN (06:00)
[2017-04-02] MEDS: INSULIN HUMULIN R 100 UNIT/ML 3ML SQ SCH ×4 (06:37→21:25)
[2017-04-02] MEDS: INSULIN GLARGINE 100 UNITS/ML 10 ML VIAL SQ SCH (06:37)
[2017-04-02] MEDS: IPRATROPIUM 0.5 MG/2.5 ML INH IH SCH ×4 (07:06→23:09)
[2017-04-02] MEDS: BUDESONIDE 0.5 MG/2 ML INH IH SCH ×2 (07:14→18:33)
[2017-04-02] MEDS: FOLIC ACID/VITAMIN B COMP W-C 1 MG CAPSULE PO SCH (09:41)
[2017-04-02] MEDS: FAMOTIDINE 20MG TAB 20 MG TAB PO SCH ×2 (09:42→21:27)
[2017-04-02] MEDS: MONTELUKAST SODIUM 10 MG TAB PO SCH (09:42)
[2017-04-02] MEDS: FLUTICASONE PROPIONATE 50MCG/SPRAY 16 GM BOTTLE EN SCH (09:42)
[2017-04-02] MEDS: GABAPENTIN 300 MG CAPSULE PO SCH (09:42)
[2017-04-02] MEDS: BENZONATATE 100 MG CAPSULE PO SCH ×3 (09:42→21:27)
[2017-04-02] MEDS: PREDNISONE 20 MG TABLET PO SCH (09:42)
[2017-04-02] MEDS: FERROUS SULFATE 325 MG TABLET.DR PO SCH ×2 (09:43→16:47)
[2017-04-02 10:25] LABS: HEPATITIS Bs ANTIGEN SCREEN P Negative (Negative)
[2017-04-02] MEDS: ACETYLCYSTEINE 20% 200MG/ML 4ML VIAL IH SCH ×2 (11:32→23:10)
[2017-04-02] MEDS: IRON SUCROSE COMPLEX 100 MG in SODIUM CHLORIDE 0.9% 50 ML IV SCH (12:12)
[2017-04-02] MEDS: EPOETIN ALFA 10,000 UNIT/ML VIAL SQ SCH (16:47)
[2017-04-02] MEDS: HYDRALAZINE HCL 20 MG/ML VIAL IV PRN (16:47)
[2017-04-02] MEDS: DOXAZOSIN MESYLATE 2 MG TABLET PO SCH (21:28)
[2017-04-03] VITALS: BP 140/67
[2017-04-03] MEDS: CARVEDILOL 25 MG TABLET PO SCH ×3 (00:07→23:26)
[2017-04-03 03:00] VITALS: BP 131/69
[2017-04-03 04:01] LABS: BASOPHILS % (AUTO) 0.3 % (0.0-5.0); EOSINOPHILS % (AUTO) 0.6 % (0.0-8.0); LYMPHOCYTES % (AUTO) 7.3 % (21.0-51.0); MEAN CORPUSCULAR HEMOGLOBIN 29.2 pg (27.0-33.0); MEAN CORPUSCULAR HGB CONC 34.4 g/dL (32.0-36.0); MEAN CORPUSCULAR VOLUME 84.9 fL (79-99); MONOCYTES % (AUTO) 9.6 % (3.0-13.0); NEUTROPHILS % (AUTO) 82.2 % (40.0-77.0); NUCLEATED RED BLOOD CELLS 0.1 % (0.0-0.19); PLATELET COUNT (AUTO) 220 K/uL (130-400); RED BLOOD CELL COUNT(AUTO) 2.41 MIL/uL (4.00-5.50); RED CELL DISTRIBUTION WIDTH 15.1 % (11.0-15.5); WHITE BLOOD COUNT (AUTO) 11.3 K/uL (4.8-10.8)
[2017-04-03 04:08] LABS: HEMATOCRIT 20.5 % (36-48)
[2017-04-03 04:30] LABS: CREATININE 7.2 mg/dL (0.5-1.5)
[2017-04-03 04:35] LABS: POTASSIUM 2.9 mmol/L (3.5-5.1)
[2017-04-03] MEDS: INSULIN HUMULIN R 100 UNIT/ML 3ML SQ SCH ×4 (06:04→23:30)
[2017-04-03] MEDS: BUDESONIDE 0.5 MG/2 ML INH IH SCH ×2 (06:28→19:07)
[2017-04-03] MEDS: IPRATROPIUM 0.5 MG/2.5 ML INH IH SCH ×3 (06:28→19:02)
[2017-04-03] MEDS ORDERED: INSULIN GLARGINE 100 UNITS/ML 10 ML VIAL SQ ONE (06:36)
[2017-04-03] MEDS: INSULIN GLARGINE 100 UNITS/ML 10 ML VIAL SQ SCH (06:44)
[2017-04-03 07:00] VITALS: BP 136/66
[2017-04-03] MEDS: BENZONATATE 100 MG CAPSULE PO SCH ×3 (08:58→23:23)
[2017-04-03] MEDS: FAMOTIDINE 20MG TAB 20 MG TAB PO SCH ×2 (08:59→23:23)
[2017-04-03] MEDS: MONTELUKAST SODIUM 10 MG TAB PO SCH (08:59)
[2017-04-03] MEDS: GABAPENTIN 300 MG CAPSULE PO SCH (08:59)
[2017-04-03] MEDS: PREDNISONE 20 MG TABLET PO SCH (09:00)
[2017-04-03] MEDS: FOLIC ACID/VITAMIN B COMP W-C 1 MG CAPSULE PO SCH (09:00)
[2017-04-03] MEDS: FERROUS SULFATE 325 MG TABLET.DR PO SCH ×2 (09:00→17:41)
[2017-04-03] MEDS: FLUTICASONE PROPIONATE 50MCG/SPRAY 16 GM BOTTLE EN SCH (09:01)
[2017-04-03] MEDS: ACETYLCYSTEINE 20% 200MG/ML 4ML VIAL IH SCH (10:57)
[2017-04-03 11:00] VITALS: BP 130/71
[2017-04-03 16:00] VITALS: BP 130/61
[2017-04-03] MEDS: IRON SUCROSE COMPLEX 100 MG in SODIUM CHLORIDE 0.9% 50 ML IV SCH (17:41)
[2017-04-03] MEDS: CALCIUM ACETATE 667 MG CAPSULE PO SCH (17:41)
[2017-04-03 20:00] VITALS: BP 158/87
[2017-04-03] MEDS: DOXAZOSIN MESYLATE 2 MG TABLET PO SCH (23:23)
[2017-04-04] VITALS (7 sets, daily range): BP systolic 128–162; BP diastolic 69–81
[2017-04-04] MEDS: IPRATROPIUM 0.5 MG/2.5 ML INH IH SCH ×5 (00:04→23:42)
[2017-04-04] MEDS: ACETYLCYSTEINE 20% 200MG/ML 4ML VIAL IH SCH ×3 (00:05→23:42)
[2017-04-04 04:05] LABS: HEMATOCRIT 25.9 % (36-48); MEAN CORPUSCULAR HEMOGLOBIN 28.2 pg (27.0-33.0); MEAN CORPUSCULAR HGB CONC 33.1 g/dL (32.0-36.0); MEAN CORPUSCULAR VOLUME 85.2 fL (79-99); NUCLEATED RED BLOOD CELLS 0.1 % (0.0-0.19); PLATELET COUNT (AUTO) 256 K/uL (130-400); RED BLOOD CELL COUNT(AUTO) 3.04 MIL/uL (4.00-5.50); RED CELL DISTRIBUTION WIDTH 15.2 % (11.0-15.5)
[2017-04-04] MEDS: HYDROCODONE/ACETAMINOPHEN 5/325 MG TAB PO PRN (04:12)
[2017-04-04 04:34] LABS: CREATININE 5.5 mg/dL (0.5-1.5); PHOSPHORUS 6.5 mg/dL (2.5-4.9); POTASSIUM 3.4 mmol/L (3.5-5.1)
[2017-04-04] MEDS: INSULIN HUMULIN R 100 UNIT/ML 3ML SQ SCH ×4 (05:32→21:36)
[2017-04-04] MEDS ORDERED: INSULIN GLARGINE 100 UNITS/ML 10 ML VIAL SQ ONE (06:36)
[2017-04-04] MEDS: INSULIN GLARGINE 100 UNITS/ML 10 ML VIAL SQ SCH (06:42)
[2017-04-04] MEDS: BUDESONIDE 0.5 MG/2 ML INH IH SCH ×2 (06:53→19:39)
[2017-04-04] MEDS: FOLIC ACID/VITAMIN B COMP W-C 1 MG CAPSULE PO SCH (12:07)
[2017-04-04] MEDS: CARVEDILOL 25 MG TABLET PO SCH ×2 (12:08→21:31)
[2017-04-04] MEDS: CALCIUM ACETATE 667 MG CAPSULE PO SCH ×3 (12:08→17:12)
[2017-04-04] MEDS: FAMOTIDINE 20MG TAB 20 MG TAB PO SCH ×2 (12:09→21:30)
[2017-04-04] MEDS: MONTELUKAST SODIUM 10 MG TAB PO SCH (12:09)
[2017-04-04] MEDS: PREDNISONE 20 MG TABLET PO SCH (12:09)
[2017-04-04] MEDS: BENZONATATE 100 MG CAPSULE PO SCH ×3 (12:09→21:30)
[2017-04-04] MEDS: GABAPENTIN 300 MG CAPSULE PO SCH (12:09)
[2017-04-04] MEDS: FERROUS SULFATE 325 MG TABLET.DR PO SCH ×2 (12:10→17:12)
[2017-04-04] MEDS: IRON SUCROSE COMPLEX 100 MG in SODIUM CHLORIDE 0.9% 50 ML IV SCH (12:10)
[2017-04-04] MEDS: FLUTICASONE PROPIONATE 50MCG/SPRAY 16 GM BOTTLE EN SCH (12:10)
[2017-04-04] MEDS: DOXAZOSIN MESYLATE 2 MG TABLET PO SCH (21:30)
[2017-04-05] MEDS: HYDRALAZINE HCL 20 MG/ML VIAL IV PRN ×2 (00:40→13:39)
[2017-04-05 03:00] VITALS: BP 138/65
[2017-04-05 03:54] LABS: HEMATOCRIT 25.8 % (36-48); MEAN CORPUSCULAR HEMOGLOBIN 28.7 pg (27.0-33.0); MEAN CORPUSCULAR HGB CONC 33.3 g/dL (32.0-36.0); MEAN CORPUSCULAR VOLUME 86.1 fL (79-99); NUCLEATED RED BLOOD CELLS 0.1 % (0.0-0.19); PLATELET COUNT (AUTO) 240 K/uL (130-400); RED BLOOD CELL COUNT(AUTO) 2.99 MIL/uL (4.00-5.50); RED CELL DISTRIBUTION WIDTH 15.4 % (11.0-15.5); WHITE BLOOD COUNT (AUTO) 11.4 K/uL (4.8-10.8)
[2017-04-05 04:08] LABS: CREATININE 6.5 mg/dL (0.5-1.5); POTASSIUM 3.4 mmol/L (3.5-5.1)
[2017-04-05] MEDS: INSULIN HUMULIN R 100 UNIT/ML 3ML SQ SCH ×4 (06:09→21:00)
[2017-04-05] MEDS: BUDESONIDE 0.5 MG/2 ML INH IH SCH ×2 (06:23→19:15)
[2017-04-05] MEDS: IPRATROPIUM 0.5 MG/2.5 ML INH IH SCH ×3 (06:23→18:55)
[2017-04-05 08:00] VITALS: BP 130/67
[2017-04-05] MEDS: ACETYLCYSTEINE 20% 200MG/ML 4ML VIAL IH SCH (09:00)
[2017-04-05] MEDS: FLUTICASONE PROPIONATE 50MCG/SPRAY 16 GM BOTTLE EN SCH (09:00)
[2017-04-05] MEDS: INSULIN GLARGINE 100 UNITS/ML 10 ML VIAL SQ SCH (10:40)
[2017-04-05] MEDS: CALCIUM ACETATE 667 MG CAPSULE PO SCH ×4 (10:44→18:09)
[2017-04-05] MEDS: BENZONATATE 100 MG CAPSULE PO SCH ×3 (10:45→20:25)
[2017-04-05] MEDS: CARVEDILOL 25 MG TABLET PO SCH ×2 (10:45→20:26)
[2017-04-05] MEDS: FAMOTIDINE 20MG TAB 20 MG TAB PO SCH ×2 (10:46→20:25)
[2017-04-05] MEDS: GABAPENTIN 300 MG CAPSULE PO SCH (10:46)
[2017-04-05] MEDS: MONTELUKAST SODIUM 10 MG TAB PO SCH (10:46)
[2017-04-05] MEDS: FOLIC ACID/VITAMIN B COMP W-C 1 MG CAPSULE PO SCH (10:46)
[2017-04-05] MEDS: FERROUS SULFATE 325 MG TABLET.DR PO SCH ×3 (10:46→18:10)
[2017-04-05 12:00] VITALS: BP 161/65
[2017-04-05] MEDS: IRON SUCROSE COMPLEX 100 MG in SODIUM CHLORIDE 0.9% 50 ML IV SCH (13:34)
[2017-04-05 16:00] VITALS: BP 132/61
[2017-04-05 19:00] VITALS: BP 139/60
[2017-04-05] MEDS: DOXAZOSIN MESYLATE 2 MG TABLET PO SCH (20:25)
[2017-04-05 23:00] VITALS: BP 126/66
[2017-04-06] MEDS: IPRATROPIUM 0.5 MG/2.5 ML INH IH SCH ×4 (00:52→18:49)
[2017-04-06 03:00] VITALS: BP 138/61
[2017-04-06] MEDS: INSULIN HUMULIN R 100 UNIT/ML 3ML SQ SCH ×4 (06:28→21:23)
[2017-04-06] MEDS: BUDESONIDE 0.5 MG/2 ML INH IH SCH (06:29)
[2017-04-06] MEDS: INSULIN GLARGINE 100 UNITS/ML 10 ML VIAL SQ SCH (06:40)
[2017-04-06] MEDS ORDERED: CEFAZOLIN 2GM / 50 ML 50 ML IV SCH (07:15)
[2017-04-06] MEDS ORDERED: CEFAZOLIN SODIUM 1 GM VIAL IVP SCH (07:30)
[2017-04-06 08:00] VITALS: BP 137/67
[2017-04-06] MEDS: CALCIUM ACETATE 667 MG CAPSULE PO SCH ×3 (08:00→16:38)
[2017-04-06] MEDS: FERROUS SULFATE 325 MG TABLET.DR PO SCH ×2 (08:00→11:46)
[2017-04-06] MEDS ORDERED: PREDNISONE 10 MG TABLET PO SCH (09:00)
[2017-04-06] MEDS: ACETYLCYSTEINE 20% 200MG/ML 4ML VIAL IH SCH ×2 (11:18→18:52)
[2017-04-06] MEDS: IRON SUCROSE COMPLEX 100 MG in SODIUM CHLORIDE 0.9% 50 ML IV SCH (11:46)
[2017-04-06] MEDS: FOLIC ACID/VITAMIN B COMP W-C 1 MG CAPSULE PO SCH (11:46)
[2017-04-06] MEDS: BENZONATATE 100 MG CAPSULE PO SCH ×3 (11:47→21:20)
[2017-04-06] MEDS: MONTELUKAST SODIUM 10 MG TAB PO SCH (11:47)
[2017-04-06] MEDS: CARVEDILOL 25 MG TABLET PO SCH ×2 (11:47→21:20)
[2017-04-06] MEDS: FAMOTIDINE 20MG TAB 20 MG TAB PO SCH ×2 (11:48→21:20)
[2017-04-06] MEDS: FLUTICASONE PROPIONATE 50MCG/SPRAY 16 GM BOTTLE EN SCH (11:49)
[2017-04-06 12:00] VITALS: BP 122/69
[2017-04-06] MEDS: GABAPENTIN 300 MG CAPSULE PO SCH (12:14)
[2017-04-06 16:00] VITALS: BP 134/68
[2017-04-06 19:00] VITALS: BP 132/73
[2017-04-06] MEDS ORDERED: CEFAZOLIN SODIUM 1 GM VIAL IV SCH (20:45)
[2017-04-06] MEDS: DOXAZOSIN MESYLATE 2 MG TABLET PO SCH (21:20)
[2017-04-06 23:00] VITALS: BP 121/59
[2017-04-07] MEDS: IPRATROPIUM 0.5 MG/2.5 ML INH IH SCH ×4 (00:10→19:16)
[2017-04-07] MEDS: BUDESONIDE 0.5 MG/2 ML INH IH SCH ×3 (00:11→19:16)
[2017-04-07 03:00] VITALS: BP 118/61
[2017-04-07] MEDS: INSULIN GLARGINE 100 UNITS/ML 10 ML VIAL SQ SCH (07:16)
[2017-04-07] MEDS: INSULIN HUMULIN R 100 UNIT/ML 3ML SQ SCH ×4 (07:30→20:50)
[2017-04-07] MEDS ORDERED: HEPARIN SODIUM 1000UNIT/ML 10ML VIAL ONE (07:37)
[2017-04-07 08:00] VITALS: BP 100/60
[2017-04-07] MEDS: FERROUS SULFATE 325 MG TABLET.DR PO SCH ×2 (08:00→17:35)
[2017-04-07] MEDS: CARVEDILOL 25 MG TABLET PO SCH ×2 (08:20→22:27)
[2017-04-07] MEDS: IRON SUCROSE COMPLEX 100 MG in SODIUM CHLORIDE 0.9% 50 ML IV SCH (09:00)
[2017-04-07] MEDS: FOLIC ACID/VITAMIN B COMP W-C 1 MG CAPSULE PO SCH (09:00)
[2017-04-07] MEDS: FAMOTIDINE 20MG TAB 20 MG TAB PO SCH ×2 (09:00→22:26)
[2017-04-07] MEDS: MONTELUKAST SODIUM 10 MG TAB PO SCH (09:00)
[2017-04-07] MEDS: GABAPENTIN 300 MG CAPSULE PO SCH (09:00)
[2017-04-07] MEDS: FLUTICASONE PROPIONATE 50MCG/SPRAY 16 GM BOTTLE EN SCH (09:00)
[2017-04-07] MEDS: BENZONATATE 100 MG CAPSULE PO SCH ×3 (09:00→22:26)
[2017-04-07 11:00] VITALS: BP 138/73
[2017-04-07] MEDS: CALCIUM ACETATE 667 MG CAPSULE PO SCH ×3 (12:00→17:35)
[2017-04-07 16:00] VITALS: BP 129/69
[2017-04-07 19:25] VITALS: BP 137/67
[2017-04-07 19:32] LABS: APPEARANCE,URINE CLOUDY (CLEAR); BILIRUBIN,URINE SMALL (NEGATIVE); COLOR,URINE YELLOW (YELLOW); GLUCOSE, URINE (UA) NEGATIVE (NEGATIVE); KETONES,URINE 5 mg/dL (NEGATIVE); LEUKOCYTE ESTERASE ,URINE LARGE (NEGATIVE); NITRATE,URINE NEGATIVE (NEGATIVE); OCCULT BLOOD,URINE MODERATE (NEGATIVE); PH,URINE 5.5 (5.0-8.0); PROTEIN,URINE >=300 (NEGATIVE); UROBILINOGEN,URINE 0.2 mg/dL (0.2-1.0)
[2017-04-07 19:49] LABS: BACTERIA,URINE Few /HPF (None Seen); WBC,URINE >100 /HPF (0-1)
[2017-04-07 19:51] LABS: SQUAMOUS EPITHELIAL CELL,UR Rare /LPF (0-2)
[2017-04-07 19:52] LABS: YEAST,URINE BUDDING Moderate /HPF (None Seen)
[2017-04-07] MEDS: ACETYLCYSTEINE 20% 200MG/ML 4ML VIAL IH SCH (21:00)
[2017-04-07] MEDS: DOXAZOSIN MESYLATE 2 MG TABLET PO SCH (22:27)
[2017-04-07 23:05] VITALS: BP 138/72
[2017-04-08] MEDS: IPRATROPIUM 0.5 MG/2.5 ML INH IH SCH ×5 (00:02→23:51)
[2017-04-08 03:25] VITALS: BP 131/69
[2017-04-08 04:34] LABS: HEMATOCRIT 25.3 % (36-48); MEAN CORPUSCULAR HEMOGLOBIN 28.4 pg (27.0-33.0); MEAN CORPUSCULAR HGB CONC 32.5 g/dL (32.0-36.0); MEAN CORPUSCULAR VOLUME 87.5 fL (79-99); PLATELET COUNT (AUTO) 217 K/uL (130-400); RED CELL DISTRIBUTION WIDTH 15.4 % (11.0-15.5); WHITE BLOOD COUNT (AUTO) 9.6 K/uL (4.8-10.8)
[2017-04-08 04:42] LABS: CREATININE 5.6 mg/dL (0.5-1.5); POTASSIUM 3.4 mmol/L (3.5-5.1)
[2017-04-08] MEDS: INSULIN HUMULIN R 100 UNIT/ML 3ML SQ SCH ×4 (06:29→20:56)
[2017-04-08] MEDS: BUDESONIDE 0.5 MG/2 ML INH IH SCH ×2 (06:39→18:36)
[2017-04-08 08:00] VITALS: BP 116/53
[2017-04-08] MEDS: CALCIUM ACETATE 667 MG CAPSULE PO SCH ×3 (08:00→17:01)
[2017-04-08] MEDS: INSULIN GLARGINE 100 UNITS/ML 10 ML VIAL SQ SCH (08:31)
[2017-04-08] MEDS: FLUTICASONE PROPIONATE 50MCG/SPRAY 16 GM BOTTLE EN SCH (09:00)
[2017-04-08] MEDS ORDERED: CEFTRIAXONE 1GM/D5W 50ML 50 ML IV SCH (10:45)
[2017-04-08 11:00] VITALS: BP 139/55
[2017-04-08] MEDS: CEFTRIAXONE SODIUM 1 GM IVP SCH (12:46)
[2017-04-08] MEDS: FAMOTIDINE 20MG TAB 20 MG TAB PO SCH ×2 (12:49→20:59)
[2017-04-08] MEDS: MONTELUKAST SODIUM 10 MG TAB PO SCH (12:49)
[2017-04-08] MEDS: FOLIC ACID/VITAMIN B COMP W-C 1 MG CAPSULE PO SCH (12:50)
[2017-04-08] MEDS: FERROUS SULFATE 325 MG TABLET.DR PO SCH ×2 (12:50→17:01)
[2017-04-08] MEDS: EPOETIN ALFA 10,000 UNIT/ML VIAL SQ SCH (12:56)
[2017-04-08] MEDS: BENZONATATE 100 MG CAPSULE PO SCH ×3 (13:10→20:58)
[2017-04-08] MEDS: CARVEDILOL 25 MG TABLET PO SCH ×2 (13:11→20:59)
[2017-04-08] MEDS: IRON SUCROSE COMPLEX 100 MG in SODIUM CHLORIDE 0.9% 50 ML IV SCH (13:22)
[2017-04-08 16:00] VITALS: BP 137/71
[2017-04-08] MEDS: GABAPENTIN 300 MG CAPSULE PO SCH (17:06)
[2017-04-08] MEDS: ACETYLCYSTEINE 20% 200MG/ML 4ML VIAL IH SCH (18:38)
[2017-04-08 19:15] VITALS: BP 139/68
[2017-04-08] MEDS: DOXAZOSIN MESYLATE 2 MG TABLET PO SCH (20:58)
[2017-04-08 23:15] VITALS: BP 128/60
[2017-04-09] VITALS (21 sets, daily range): BP systolic 103–156; BP diastolic 49–70
[2017-04-09 05:09] LABS: HEMATOCRIT 24.3 % (36-48); MEAN CORPUSCULAR HEMOGLOBIN 29.3 pg (27.0-33.0); MEAN CORPUSCULAR HGB CONC 33.2 g/dL (32.0-36.0); MEAN CORPUSCULAR VOLUME 88.1 fL (79-99); NUCLEATED RED BLOOD CELLS 0.1 % (0.0-0.19); PLATELET COUNT (AUTO) 188 K/uL (130-400); RED BLOOD CELL COUNT(AUTO) 2.76 MIL/uL (4.00-5.50); RED CELL DISTRIBUTION WIDTH 15.7 % (11.0-15.5); WHITE BLOOD COUNT (AUTO) 7.9 K/uL (4.8-10.8)
[2017-04-09] MEDS: BUDESONIDE 0.5 MG/2 ML INH IH SCH ×2 (06:00→19:30)
[2017-04-09] MEDS: IPRATROPIUM 0.5 MG/2.5 ML INH IH SCH ×4 (06:00→23:59)
[2017-04-09] MEDS: INSULIN HUMULIN R 100 UNIT/ML 3ML SQ SCH ×4 (06:15→21:00)
[2017-04-09] MEDS: INSULIN GLARGINE 100 UNITS/ML 10 ML VIAL SQ SCH (06:15)
[2017-04-09] MEDS ORDERED: POTASSIUM CHLORIDE 20MEQ/100ML 100 ML IV ONE (07:31)
[2017-04-09] MEDS ORDERED: SODIUM BICARB [NEONATAL] 4.2% 10ML SYG ONE (07:39)
[2017-04-09] MEDS ORDERED: OCTYL 2-CYANOACRYLATE 1 EACH TP ONE (07:39)
[2017-04-09] MEDS ORDERED: LIDOCAINE HCL 1% 20 ML VIAL ONE (07:39)
[2017-04-09] MEDS ORDERED: PAPAVERINE HCL 30 MG/ML 2ML VIAL ONE (07:39)
[2017-04-09] MEDS ORDERED: BUPIVACAINE/PF 0.25% 30ML VIAL IJ ONE (07:39)
[2017-04-09] MEDS ORDERED: NEOMY SULF/POLYMYXIN B SULFATE 1 ML AMPUL IR ONE (07:40)
[2017-04-09] MEDS ORDERED: ROPIVACAINE 0.5% 5MG/ML 30ML IJ ONE (07:46)
[2017-04-09] MEDS ORDERED: FENTANYL CITRATE PF 50 MCG/1 ML 2ML VIAL ONE (07:48)
[2017-04-09] MEDS ORDERED: MIDAZOLAM HCL 1 MG/ML 2ML VIAL ONE ×2 (07:48→10:15)
[2017-04-09] MEDS: ACETYLCYSTEINE 20% 200MG/ML 4ML VIAL IH SCH ×2 (07:58→21:00)
[2017-04-09] MEDS: FERROUS SULFATE 325 MG TABLET.DR PO SCH ×2 (08:00→18:04)
[2017-04-09] MEDS ORDERED: KETAMINE HCL 100 MG/ML 5ML VIAL IJ ONE (08:14)
[2017-04-09] MEDS: MONTELUKAST SODIUM 10 MG TAB PO SCH (09:00)
[2017-04-09] MEDS: GABAPENTIN 300 MG CAPSULE PO SCH (09:00)
[2017-04-09] MEDS: FOLIC ACID/VITAMIN B COMP W-C 1 MG CAPSULE PO SCH (09:00)
[2017-04-09] MEDS: FAMOTIDINE 20MG TAB 20 MG TAB PO SCH ×2 (09:00→20:19)
[2017-04-09] MEDS: BENZONATATE 100 MG CAPSULE PO SCH ×3 (09:00→20:19)
[2017-04-09] MEDS: CALCIUM ACETATE 667 MG CAPSULE PO SCH ×3 (09:00→18:04)
[2017-04-09] MEDS: FLUTICASONE PROPIONATE 50MCG/SPRAY 16 GM BOTTLE EN SCH (09:00)
[2017-04-09] MEDS: CARVEDILOL 25 MG TABLET PO SCH ×2 (09:00→20:22)
[2017-04-09] MEDS: IRON SUCROSE COMPLEX 100 MG in SODIUM CHLORIDE 0.9% 50 ML IV SCH (09:00)
[2017-04-09] MEDS ORDERED: TRAMADOL HCL 50 MG TABLET PO ONE (16:00)
[2017-04-09] MEDS: EPOETIN ALFA 10,000 UNIT/ML VIAL SQ SCH (16:00)
[2017-04-09] MEDS: FLUCONAZOLE 100 MG TAB PO SCH (18:04)
[2017-04-09] MEDS: CEFTRIAXONE SODIUM 1 GM IVP SCH (18:05)
[2017-04-09] MEDS: DOXAZOSIN MESYLATE 2 MG TABLET PO SCH (20:19)
[2017-04-09] MEDS: MORPHINE SULFATE 2 MG/ML 1ML SYG IVP PRN (20:22)
[2017-04-10] VITALS: BP 144/57
[2017-04-10 04:00] VITALS: BP 127/62
[2017-04-10 04:59] LABS: HEMATOCRIT 24.7 % (36-48); MEAN CORPUSCULAR HEMOGLOBIN 28.4 pg (27.0-33.0); MEAN CORPUSCULAR HGB CONC 32.3 g/dL (32.0-36.0); PLATELET COUNT (AUTO) 191 K/uL (130-400); RED BLOOD CELL COUNT(AUTO) 2.81 MIL/uL (4.00-5.50); RED CELL DISTRIBUTION WIDTH 15.7 % (11.0-15.5); WHITE BLOOD COUNT (AUTO) 9.7 K/uL (4.8-10.8)
[2017-04-10 05:08] LABS: CREATININE 5.4 mg/dL (0.5-1.5); POTASSIUM 3.3 mmol/L (3.5-5.1)
[2017-04-10] MEDS: MORPHINE SULFATE 2 MG/ML 1ML SYG IVP PRN (06:03)
[2017-04-10] MEDS: INSULIN HUMULIN R 100 UNIT/ML 3ML SQ SCH ×2 (06:13→11:00)
[2017-04-10] MEDS: IPRATROPIUM 0.5 MG/2.5 ML INH IH SCH ×2 (07:10→11:57)
[2017-04-10] MEDS: BUDESONIDE 0.5 MG/2 ML INH IH SCH (07:28)
[2017-04-10 08:00] VITALS: BP 135/88
[2017-04-10] MEDS: ACETYLCYSTEINE 20% 200MG/ML 4ML VIAL IH SCH (09:00)
[2017-04-10] MEDS: IRON SUCROSE COMPLEX 100 MG in SODIUM CHLORIDE 0.9% 50 ML IV SCH (09:00)
[2017-04-10] MEDS: FAMOTIDINE 20MG TAB 20 MG TAB PO SCH (09:00)
[2017-04-10] MEDS: FLUTICASONE PROPIONATE 50MCG/SPRAY 16 GM BOTTLE EN SCH (09:00)
[2017-04-10] MEDS: CARVEDILOL 25 MG TABLET PO SCH (10:03)
[2017-04-10] MEDS: MONTELUKAST SODIUM 10 MG TAB PO SCH (10:03)
[2017-04-10] MEDS: CALCIUM ACETATE 667 MG CAPSULE PO SCH (10:04)
[2017-04-10] MEDS: BENZONATATE 100 MG CAPSULE PO SCH (10:04)
[2017-04-10] MEDS: GABAPENTIN 300 MG CAPSULE PO SCH (10:04)
[2017-04-10] MEDS: FOLIC ACID/VITAMIN B COMP W-C 1 MG CAPSULE PO SCH (10:04)
[2017-04-10] MEDS: FLUCONAZOLE 100 MG TAB PO SCH (10:05)
[2017-04-10] MEDS: FERROUS SULFATE 325 MG TABLET.DR PO SCH (10:05)
[2017-04-10] MEDS: INSULIN GLARGINE 100 UNITS/ML 10 ML VIAL SQ SCH (10:57)
[2017-04-10] MEDS: CEFTRIAXONE SODIUM 1 GM IVP SCH (11:01)
[2017-04-10 12:00] VITALS: BP 123/74
== END 2017-04-10 14:30 | disposition home or self-care (01) | DRG 444 ==
LOC: EDH 16:58 → EDHIP 16:59 → 4CH 03-25 09:08 → 3AH 03-25 21:37 → 2CH 04-01 00:04 → 3BH 04-02 17:19
PROVIDERS: ADMIT Internal Medicine; ATTEND Internal Medicine
PROC: 02H633Z Insertion of Infusion Device into Right Atrium, Percutaneous Approach (ICD-10-PCS; principal; 2017-04-01)
PROC: B244ZZZ Ultrasonography of Right Heart (ICD-10-PCS; 2017-04-01)
PROC: 30233N1 Transfusion of Nonautologous Red Blood Cells into Peripheral Vein, Percutaneous Approach (ICD-10-PCS; 2017-04-01)
PROC: 5A09357 Assistance with Respiratory Ventilation, Less than 24 Consecutive Hours, Continuous Positive Airway Pressure (ICD-10-PCS; 2017-04-01)
PROC: 5A1D70Z Performance of Urinary Filtration, Intermittent, Less than 6 Hours Per Day (ICD-10-PCS; 2017-04-01)
PROC: 5A1D70Z Performance of Urinary Filtration, Intermittent, Less than 6 Hours Per Day (ICD-10-PCS; 2017-04-02)
PROC: 5A1D70Z Performance of Urinary Filtration, Intermittent, Less than 6 Hours Per Day (ICD-10-PCS; 2017-04-03)
PROC: 5A1D70Z Performance of Urinary Filtration, Intermittent, Less than 6 Hours Per Day (ICD-10-PCS; 2017-04-05)
PROC: 5A1D70Z Performance of Urinary Filtration, Intermittent, Less than 6 Hours Per Day (ICD-10-PCS; 2017-04-07)
PROC: 5A1D70Z Performance of Urinary Filtration, Intermittent, Less than 6 Hours Per Day (ICD-10-PCS; 2017-04-09)
PROC: 03180ZD Bypass Left Brachial Artery to Upper Arm Vein, Open Approach (ICD-10-PCS; 2017-04-09 08:23)
PROC: 5A09357 Assistance with Respiratory Ventilation, Less than 24 Consecutive Hours, Continuous Positive Airway Pressure (ICD-10-PCS; 2017-04-10)
DX: N17.9 Acute kidney failure, unspecified (principal); J96.20 Acute and chronic respiratory failure, unspecified whether with hypoxia or hypercapnia; J44.0 Chronic obstructive pulmonary disease with (acute) lower respiratory infection; E11.42 Type 2 diabetes mellitus with diabetic polyneuropathy; J45.901 Unspecified asthma with (acute) exacerbation; E66.01 Morbid (severe) obesity due to excess calories; E11.21 Type 2 diabetes mellitus with diabetic nephropathy; E87.2 Acidosis; I12.0 Hypertensive chronic kidney disease with stage 5 chronic kidney disease or end stage renal disease; N18.6 End stage renal disease; J20.9 Acute bronchitis, unspecified; J10.1 Influenza due to other identified influenza virus with other respiratory manifestations; E87.5 Hyperkalemia; J44.1 Chronic obstructive pulmonary disease with (acute) exacerbation; E11.22 Type 2 diabetes mellitus with diabetic chronic kidney disease; N18.9 Chronic kidney disease, unspecified; D63.8 Anemia in other chronic diseases classified elsewhere; H54.8 Legal blindness, as defined in USA; E87.70 Fluid overload, unspecified; Z99.2 Dependence on renal dialysis; F20.9 Schizophrenia, unspecified; F31.9 Bipolar disorder, unspecified; F41.9 Anxiety disorder, unspecified; E78.5 Hyperlipidemia, unspecified; G47.30 Sleep apnea, unspecified; I25.10 Atherosclerotic heart disease of native coronary artery without angina pectoris; N39.0 Urinary tract infection, site not specified; Z77.22 Contact with and (suspected) exposure to environmental tobacco smoke (acute) (chronic); Z91.15 Patient's noncompliance with renal dialysis; Z95.5 Presence of coronary angioplasty implant and graft; Z99.81 Dependence on supplemental oxygen; Z68.42 Body mass index [BMI] 45.0-49.9, adult; Z88.2 Allergy status to sulfonamides; Z88.8 Allergy status to other drugs, medicaments and biological substances
CPT/HCPCS: 36415; 36430; 36558; 36600; 71045; 71046; 71250; 76770; 77001; 80048; 80053; 80061; 80076; 80305; 81001; 82040; 82140; 82550; 82553; 82565; 82607; 82728; 82746; 82803; 82948; 83036; 83540; 83550; 83735; 83874; 83880; 84100; 84132; 84443; 84484; 84520; 84550; 85025; 85027; 85610; 85730; 86701; 86704; 86706; 86850; 86900; 86901; 86922; 87088; 87186; 87340; 87390; 87507; 87520; 87804; 87880; 90935; 93005; 93306; 93971; 94640; 94660; 94664; 99291; A4218; C1750; J0360; J0456; J0610; J0690; J0696; J0885; J1265; J1630; J1644; J1756; J1815; J1940; J2250; J2440; J2795; J2920; J2930; J3010; J3480; J3490; J7030; J7512; J7608; P9016; P9046

== ENCOUNTER 2017-08-15 23:36 | Inpatient (IN) | payer MEDICAID ==
[~2017-08-15] VITALS: Ht 167.6 cm; Wt 122.2 kg
[~2017-08-15 23:36] MED LIST changes: +BENZ200C53 PO; +FLUT16H NASAL; -FURO20TA4 PO; -INSU100C14 SQ; +INSU100I15 SQ
[2017-08-16] MEDS ORDERED: ASPIRIN 325 MG TABLET ONE (00:15)
[2017-08-16 00:16] LABS: EOSINOPHILS % (AUTO) 2.7 % (0.0-8.0); HEMATOCRIT 33.8 % (36-48); LYMPHOCYTES % (AUTO) 23.7 % (21.0-51.0); MEAN CORPUSCULAR HEMOGLOBIN 30.6 pg (27.0-33.0); MEAN CORPUSCULAR HGB CONC 33.5 g/dL (32.0-36.0); MEAN CORPUSCULAR VOLUME 91.3 fL (79-99); MONOCYTES % (AUTO) 6.4 % (3.0-13.0); NEUTROPHILS % (AUTO) 66.2 % (40.0-77.0); NUCLEATED RED BLOOD CELLS 0.2 % (0.0-0.19); PLATELET COUNT (AUTO) 244 K/uL (130-400); RED CELL DISTRIBUTION WIDTH 15.8 % (11.0-15.5); WHITE BLOOD COUNT (AUTO) 8.7 K/uL (4.8-10.8)
[2017-08-16 00:25] LABS: CREATININE 4.7 mg/dL (0.5-1.5); POTASSIUM 4.7 mmol/L (3.5-5.1)
[2017-08-16 00:38] LABS: ALBUMIN 3.3 g/dL (3.5-5.0); BILIRUBIN,TOTAL 0.4 mg/dL (0.2-1.0); CREATINE KINASE MB 1.1 ng/mL (0.5-3.6); CRP QUANTITATIVE 45.3 mg/L (0.00-9.0); TOTAL PROTEIN, SERUM 7.6 g/dL (6.0-8.3)
[2017-08-16 00:40] LABS: INR 0.95 (0.85-1.15); PARTIAL THROMBOPLASTIN TIME 28.5 SEC (26.3-35.5)
[2017-08-16] MEDS ORDERED: NITROGLYCERIN 1GM/1 INCH PACKET TD ONE (02:59)
[2017-08-16] MEDS ORDERED: INSULIN HUMULIN R 100 UNIT/ML 3ML ONE (03:00)
[2017-08-16] MEDS ORDERED: KETOROLAC TROMETHAMINE 15MG/ML ONE (04:09)
[2017-08-16] MEDS ORDERED: NITROGLYCERIN 0.4 MG SL TAB SL PRN ×2 (07:15→10:00)
[2017-08-16] MEDS ORDERED: GLUCAGON 1MG KIT 1 MG ML IM PRN (07:15)
[2017-08-16] MEDS ORDERED: DEXTROSE 50%-WATER 50 ML DISP.SYRIN IV PRN (07:15)
[2017-08-16] MEDS ORDERED: LACTULOSE 20 GM/30 ML UDCUP PO PRN ×2 (07:15→10:00)
[2017-08-16 07:26] LABS: CHOLESTEROL 227 mg/dL (<200); CREATINE KINASE, TOTAL 57 U/L (21-232); HDL CHOLESTEROL 51 mg/dL (35-85); LDL DIRECT 129 mg/dL (0-99); MYOGLOBIN 144 ng/mL (10-92); TRIGLYCERIDES 207 mg/dL (30-200)
[2017-08-16] MEDS ORDERED: ASPIRIN 325MG EC TAB 325 MG TABLET.DR PO SCH (09:00)
[2017-08-16] MEDS ORDERED: MAG HYDROX/AL HYDROX/SIMETH ES 30 ML SUSP UDCUP PO PRN (10:00)
[2017-08-16] MEDS ORDERED: HYDRALAZINE HCL 20 MG/ML VIAL IV PRN (10:00)
[2017-08-16] MEDS ORDERED: GUAIFENESIN-DM 200/20 MG 10 ML PO PRN (10:00)
[2017-08-16] MEDS ORDERED: ONDANSETRON HCL 4 MG/2 ML VIAL IV PRN (10:00)
[2017-08-16] MEDS ORDERED: MORPHINE SULFATE 2 MG/ML 1ML SYG ONE (10:54)
[2017-08-16] MEDS ORDERED: ONDANSETRON HCL 4 MG/2 ML VIAL ONE (10:54)
[2017-08-16] MEDS ORDERED: REGADENOSON 0.4 MG/5 ML PF SYG IVP SCH (13:00)
[2017-08-16 16:20] VITALS: BP 132/63
[2017-08-16] MEDS: INSULIN HUMULIN R 100 UNIT/ML 3ML SQ SCH ×2 (16:30→21:42)
[2017-08-16] MEDS: NITROGLYCERIN 1GM/1 INCH PACKET TD SCH ×3 (17:20→22:22)
[2017-08-16] MEDS: FAMOTIDINE 20MG TAB 20 MG TAB PO SCH ×2 (17:21→21:31)
[2017-08-16] MEDS: METOPROLOL TARTRATE 25 MG TAB PO SCH ×2 (17:21→21:38)
[2017-08-16] MEDS: INSULIN LISPRO 100 UNIT/ML 3ML SQ SCH (17:30)
[2017-08-16] MEDS ORDERED: FOLI1TAB85 PO (17:32)
[2017-08-16] MEDS ORDERED: CHOL100040 PO (17:32)
[2017-08-16 19:12] VITALS: BP 123/54
[2017-08-16] MEDS ORDERED: METOPROLOL TARTRATE 50 MG TAB PO SCH (21:00)
[2017-08-16] MEDS: MORPHINE SULFATE 2 MG/ML 1ML SYG IV PRN (22:35)
[2017-08-16 23:25] VITALS: BP 127/59
[2017-08-17 03:12] VITALS: BP 126/64
[2017-08-17 05:04] LABS: HEMATOCRIT 28.6 % (36-48); MEAN CORPUSCULAR HEMOGLOBIN 31.7 pg (27.0-33.0); MEAN CORPUSCULAR HGB CONC 34.4 g/dL (32.0-36.0); NUCLEATED RED BLOOD CELLS 0.1 % (0.0-0.19); PLATELET COUNT (AUTO) 245 K/uL (130-400); RED BLOOD CELL COUNT(AUTO) 3.11 MIL/uL (4.00-5.50); RED CELL DISTRIBUTION WIDTH 15.9 % (11.0-15.5); WHITE BLOOD COUNT (AUTO) 7.4 K/uL (4.8-10.8)
[2017-08-17 05:17] LABS: CREATININE 6.6 mg/dL (0.5-1.5); PHOSPHORUS 6.2 mg/dL (2.5-4.9); POTASSIUM 4.7 mmol/L (3.5-5.1)
[2017-08-17] MEDS: INSULIN HUMULIN R 100 UNIT/ML 3ML SQ SCH ×4 (06:26→20:49)
[2017-08-17] MEDS: NITROGLYCERIN 1GM/1 INCH PACKET TD SCH ×4 (06:26→23:22)
[2017-08-17] MEDS: INSULIN GLARGINE 100 UNITS/ML 10 ML VIAL SQ SCH (06:54)
[2017-08-17] MEDS: INSULIN LISPRO 100 UNIT/ML 3ML SQ SCH ×3 (08:00→16:47)
[2017-08-17 08:11] VITALS: BP 128/60
[2017-08-17] MEDS: FAMOTIDINE 20MG TAB 20 MG TAB PO SCH ×2 (11:40→20:48)
[2017-08-17] MEDS: MONTELUKAST SODIUM 10 MG TAB PO SCH (11:40)
[2017-08-17] MEDS: ENOXAPARIN SODIUM 30 MG/0.3 ML SQ SCH (11:41)
[2017-08-17] MEDS: CLOPIDOGREL BISULFATE 75 MG TAB PO SCH (11:41)
[2017-08-17] MEDS: GABAPENTIN 300 MG CAPSULE PO SCH (11:41)
[2017-08-17] MEDS: METOPROLOL TARTRATE 25 MG TAB PO SCH ×2 (11:44→20:49)
[2017-08-17] MEDS: ASPIRIN 81 MG EC TAB PO SCH (11:44)
[2017-08-17 11:45] VITALS: BP 109/50
[2017-08-17] MEDS: MORPHINE SULFATE 2 MG/ML 1ML SYG IV PRN (13:16)
[2017-08-17 16:00] VITALS: BP 127/64
[2017-08-17 18:54] VITALS: BP 111/48
[2017-08-17 23:04] VITALS: BP 111/60
[2017-08-18 03:32] VITALS: BP 124/55
[2017-08-18 03:49] LABS: HEMATOCRIT 28.8 % (36-48); MEAN CORPUSCULAR HEMOGLOBIN 30.7 pg (27.0-33.0); MEAN CORPUSCULAR HGB CONC 33.3 g/dL (32.0-36.0); MEAN CORPUSCULAR VOLUME 92.3 fL (79-99); PLATELET COUNT (AUTO) 228 K/uL (130-400); RED BLOOD CELL COUNT(AUTO) 3.12 MIL/uL (4.00-5.50); WHITE BLOOD COUNT (AUTO) 7.5 K/uL (4.8-10.8)
[2017-08-18 04:02] LABS: PHOSPHORUS 8.3 mg/dL (2.5-4.9)
[2017-08-18 04:09] LABS: POTASSIUM 6.4 mmol/L (3.5-5.1)
[2017-08-18 04:10] LABS: CREATININE 8.2 mg/dL (0.5-1.5)
[2017-08-18] MEDS: MORPHINE SULFATE 2 MG/ML 1ML SYG IV PRN (05:06)
[2017-08-18] MEDS: NITROGLYCERIN 1GM/1 INCH PACKET TD SCH ×3 (06:05→23:24)
[2017-08-18] MEDS: INSULIN HUMULIN R 100 UNIT/ML 3ML SQ SCH ×4 (06:05→20:14)
[2017-08-18] MEDS: INSULIN GLARGINE 100 UNITS/ML 10 ML VIAL SQ SCH (06:16)
[2017-08-18 07:49] VITALS: BP 123/66
[2017-08-18] MEDS: INSULIN LISPRO 100 UNIT/ML 3ML SQ SCH ×3 (08:00→16:41)
[2017-08-18] MEDS: ENOXAPARIN SODIUM 30 MG/0.3 ML SQ SCH (09:00)
[2017-08-18] MEDS: CLOPIDOGREL BISULFATE 75 MG TAB PO SCH (09:00)
[2017-08-18] MEDS: METOPROLOL TARTRATE 25 MG TAB PO SCH ×2 (09:00→20:13)
[2017-08-18] MEDS: MONTELUKAST SODIUM 10 MG TAB PO SCH (10:15)
[2017-08-18] MEDS: GABAPENTIN 300 MG CAPSULE PO SCH (10:15)
[2017-08-18] MEDS: FAMOTIDINE 20MG TAB 20 MG TAB PO SCH ×2 (10:15→20:13)
[2017-08-18 11:12] VITALS: BP 141/68
[2017-08-18] MEDS: ASPIRIN 81 MG EC TAB PO SCH ×2 (15:29→15:35)
[2017-08-18 16:14] VITALS: BP 138/70
[2017-08-18] MEDS ORDERED: ALBUMIN (HUMAN) 25% 100 ML IV PRN (19:15)
[2017-08-18] MEDS ORDERED: 0.9% SODIUM CHLORIDE 250 ML IV BAG IV PRN (19:15)
[2017-08-18] MEDS ORDERED: HEPARIN SODIUM 5000UNIT/ML 1ML VIAL IJ PRN (19:15)
[2017-08-18] MEDS ORDERED: SODIUM CHLORIDE 0.9% 1000ML 1,000 ML IV PRN (19:15)
[2017-08-18 19:27] VITALS: BP 166/74
[2017-08-18] MEDS: MORPHINE SULFATE 4 MG/1ML SYG IV PRN (20:14)
[2017-08-18 23:33] VITALS: BP 115/46
[2017-08-19 03:53] VITALS: BP 124/63
[2017-08-19 03:53] LABS: MEAN CORPUSCULAR HEMOGLOBIN 31.9 pg (27.0-33.0); MEAN CORPUSCULAR HGB CONC 34.7 g/dL (32.0-36.0); MEAN CORPUSCULAR VOLUME 91.9 fL (79-99); NUCLEATED RED BLOOD CELLS 0.1 % (0.0-0.19); PLATELET COUNT (AUTO) 208 K/uL (130-400); RED BLOOD CELL COUNT(AUTO) 3.04 MIL/uL (4.00-5.50); RED CELL DISTRIBUTION WIDTH 16.4 % (11.0-15.5); WHITE BLOOD COUNT (AUTO) 7.2 K/uL (4.8-10.8)
[2017-08-19 04:04] LABS: CREATININE 5.7 mg/dL (0.5-1.5); POTASSIUM 4.6 mmol/L (3.5-5.1)
[2017-08-19] MEDS: NITROGLYCERIN 1GM/1 INCH PACKET TD SCH ×3 (06:00→23:33)
[2017-08-19] MEDS: INSULIN HUMULIN R 100 UNIT/ML 3ML SQ SCH ×4 (06:00→20:46)
[2017-08-19] MEDS: INSULIN LISPRO 100 UNIT/ML 3ML SQ SCH ×3 (07:12→17:14)
[2017-08-19] MEDS: INSULIN GLARGINE 100 UNITS/ML 10 ML VIAL SQ SCH (07:12)
[2017-08-19 07:39] VITALS: BP 151/72
[2017-08-19] MEDS ORDERED: PHARMACY COMMUNICATION MISC SCH (08:45)
[2017-08-19] MEDS: CHOLECALCIFEROL 1000 UNIT PO SCH (09:00)
[2017-08-19] MEDS ORDERED: SUB PER P&T FOR ASTHMA OR COPD RECOMMENDATION IH SCH (09:00)
[2017-08-19] MEDS: VITAMIN B COMPLEX 1 CAPSULE PO SCH (10:11)
[2017-08-19] MEDS: GABAPENTIN 300 MG CAPSULE PO SCH (10:12)
[2017-08-19] MEDS: FAMOTIDINE 20MG TAB 20 MG TAB PO SCH ×2 (10:12→20:39)
[2017-08-19] MEDS: MONTELUKAST SODIUM 10 MG TAB PO SCH (10:12)
[2017-08-19] MEDS: CLOPIDOGREL BISULFATE 75 MG TAB PO SCH (10:12)
[2017-08-19] MEDS: DIPHENHYDRAMINE HCL 25 MG CAPSULE PO SCH ×2 (10:13→17:10)
[2017-08-19] MEDS: METOPROLOL TARTRATE 25 MG TAB PO SCH ×2 (10:13→20:39)
[2017-08-19] MEDS: ENOXAPARIN SODIUM 30 MG/0.3 ML SQ SCH (10:13)
[2017-08-19] MEDS: PREDNISONE 20 MG TABLET PO SCH ×2 (10:13→17:10)
[2017-08-19] MEDS: FLUTICASONE PROPIONATE 50MCG/SPRAY 16 GM BOTTLE EN SCH (10:14)
[2017-08-19 11:46] VITALS: BP 129/62
[2017-08-19] MEDS ORDERED: ALBUTEROL SULFATE 0.083% 2.5 MG/3 ML INH IH SCH (12:00)
[2017-08-19 16:00] VITALS: BP 139/73
[2017-08-19] MEDS ORDERED: BUDESONIDE 0.5 MG/2 ML INH IH SCH (18:00)
[2017-08-19 19:24] VITALS: BP 140/58
[2017-08-19 23:38] VITALS: BP 136/74
[2017-08-20] VITALS (20 sets, daily range): BP systolic 90–199; BP diastolic 37–89
[2017-08-20] MEDS: PREDNISONE 20 MG TABLET PO SCH ×2 (00:08→08:32)
[2017-08-20] MEDS: DIPHENHYDRAMINE HCL 25 MG CAPSULE PO SCH ×2 (00:08→08:32)
[2017-08-20 04:08] LABS: HEMATOCRIT 29.2 % (36-48); MEAN CORPUSCULAR HEMOGLOBIN 31.4 pg (27.0-33.0); MEAN CORPUSCULAR HGB CONC 34.3 g/dL (32.0-36.0); MEAN CORPUSCULAR VOLUME 91.7 fL (79-99); PLATELET COUNT (AUTO) 248 K/uL (130-400); RED BLOOD CELL COUNT(AUTO) 3.19 MIL/uL (4.00-5.50); RED CELL DISTRIBUTION WIDTH 16.2 % (11.0-15.5); WHITE BLOOD COUNT (AUTO) 6.7 K/uL (4.8-10.8)
[2017-08-20 04:15] LABS: INR 0.99 (0.85-1.15); PROTHROMBIN TIME 10.4 SEC (9.6-11.6)
[2017-08-20 04:23] LABS: CREATININE 7.8 mg/dL (0.5-1.5)
[2017-08-20] MEDS: INSULIN HUMULIN R 100 UNIT/ML 3ML SQ SCH ×4 (05:36→20:58)
[2017-08-20] MEDS ORDERED: HYDROCORTISONE SOD SUCCINATE 100 MG/2 ML VIAL IV SCH (06:00)
[2017-08-20] MEDS: NITROGLYCERIN 1GM/1 INCH PACKET TD SCH ×2 (06:29→16:00)
[2017-08-20] MEDS: INSULIN GLARGINE 100 UNITS/ML 10 ML VIAL SQ SCH (06:43)
[2017-08-20] MEDS ORDERED: INSULIN HUMULIN R 100 UNIT/ML 3ML SQ SCH (06:45)
[2017-08-20] MEDS ORDERED: SODIUM BICARB 8.4% 50ML SYRINGE IVP SCH (06:45)
[2017-08-20] MEDS ORDERED: CALCIUM GLUCONATE 1 GM/10 ML VIAL IV SCH (06:45)
[2017-08-20] MEDS ORDERED: DEXTROSE 50%-WATER 25 GM/50 ML VIAL IV SCH (06:45)
[2017-08-20] MEDS ORDERED: CALCIUM GLUCONATE 1 GM in SODIUM CHLORIDE 0.9% 50 ML IV SCH (07:00)
[2017-08-20] MEDS ORDERED: NITROGLYCERIN 1GM/1 INCH PACKET TD SCH (07:27)
[2017-08-20] MEDS: INSULIN LISPRO 100 UNIT/ML 3ML SQ SCH ×3 (08:00→17:00)
[2017-08-20] MEDS: FLUTICASONE PROPIONATE 50MCG/SPRAY 16 GM BOTTLE EN SCH (08:20)
[2017-08-20] MEDS: VITAMIN B COMPLEX 1 CAPSULE PO SCH (08:20)
[2017-08-20] MEDS: ASPIRIN 81 MG EC TAB PO SCH (08:20)
[2017-08-20] MEDS: ENOXAPARIN SODIUM 30 MG/0.3 ML SQ SCH (08:20)
[2017-08-20] MEDS: GABAPENTIN 300 MG CAPSULE PO SCH (08:26)
[2017-08-20] MEDS: CHOLECALCIFEROL 1000 UNIT PO SCH (08:26)
[2017-08-20] MEDS: CLOPIDOGREL BISULFATE 75 MG TAB PO SCH (08:26)
[2017-08-20] MEDS: MONTELUKAST SODIUM 10 MG TAB PO SCH (08:26)
[2017-08-20] MEDS ORDERED: HYDROMORPHONE 1 MG/1 ML AMP IVP SCH (08:30)
[2017-08-20] MEDS: METOPROLOL TARTRATE 25 MG TAB PO SCH ×2 (08:31→20:29)
[2017-08-20] MEDS: FAMOTIDINE 20MG TAB 20 MG TAB PO SCH ×2 (08:32→20:29)
[2017-08-20] MEDS ORDERED: HYDROMORPHONE 1 MG/1 ML AMP ONE (08:34)
[2017-08-20] MEDS ORDERED: FAMOTIDINE 20MG TAB 20 MG TAB PO SCH (09:00)
[2017-08-20] MEDS ORDERED: IPRATROPIUM/ALBUTEROL SULFATE 3 ML SOLUTION IH ONE (09:10)
[2017-08-20] MEDS ORDERED: NITROGLYCERIN 50 MG/D5% WATER 1 BOT ONE (09:51)
[2017-08-20] MEDS ORDERED: METOPROLOL TARTRATE 1 MG/ML 5ML VIAL IV ONE (09:53)
[2017-08-20] MEDS ORDERED: NITROGLYCERIN 50 MG/D5% WATER 250 BOT IV PRN (10:00)
[2017-08-20] MEDS ORDERED: METHYLPREDNISOLONE SOD SUCC 125MG/2ML VIAL ONE ×2 (14:56→15:25)
[2017-08-20] MEDS ORDERED: HYDROCORTISONE SOD SUCCINATE 100 MG/2 ML VIAL ONE (14:58)
[2017-08-20] MEDS ORDERED: IOPAMIDOL-370 100 ML VIAL IV ONE (14:59)
[2017-08-20] MEDS ORDERED: ISOVUE-370 50ML VIAL IV ONE (14:59)
[2017-08-20] MEDS ORDERED: HEPARIN SODIUM 1000UNIT/ML 10ML VIAL ONE (14:59)
[2017-08-20] MEDS ORDERED: LIDOCAINE HCL 1% 20 ML VIAL ONE (14:59)
[2017-08-20] MEDS ORDERED: DiphenhydrAMINE HCL 50 MG/ML VIAL ONE (15:25)
[2017-08-20] MEDS ORDERED: HEPARIN 25000 UNITS/250 ML D5W 250 ML IV ONE (16:19)
[2017-08-20] MEDS ORDERED: HEPARIN 25000 UNITS/250 ML D5W 250 ML IV PRN ×2 (16:45→17:30)
[2017-08-20] MEDS: MORPHINE SULFATE 4 MG/1ML SYG IV PRN ×2 (17:30→20:31)
[2017-08-20] MEDS ORDERED: CEFUROXIME 1.5GM+NS 100ML 100 ML IV SCH (18:45)
[2017-08-20 18:59] LABS: BASOPHILS % (AUTO) 0.3 % (0.0-5.0); HEMATOCRIT 31.2 % (36-48); LYMPHOCYTES % (AUTO) 4.4 % (21.0-51.0); MEAN CORPUSCULAR HEMOGLOBIN 30.5 pg (27.0-33.0); MEAN CORPUSCULAR HGB CONC 33.3 g/dL (32.0-36.0); MEAN CORPUSCULAR VOLUME 91.7 fL (79-99); MONOCYTES % (AUTO) 2.8 % (3.0-13.0); NEUTROPHILS % (AUTO) 92.5 % (40.0-77.0); PLATELET COUNT (AUTO) 289 K/uL (130-400); RED BLOOD CELL COUNT(AUTO) 3.41 MIL/uL (4.00-5.50); RED CELL DISTRIBUTION WIDTH 16.5 % (11.0-15.5)
[2017-08-20] MEDS ORDERED: CEFUROXIME SODIUM 1.5 GM VIAL IVP SCH (19:00)
[2017-08-20 19:09] LABS: CREATININE 5.3 mg/dL (0.5-1.5); POTASSIUM 4.8 mmol/L (3.5-5.1)
[2017-08-20 19:14] LABS: HEMOGLOBIN A1C 8.3 % (4.0-6.0)
[2017-08-21] VITALS (29 sets, daily range): BP systolic 71–160; BP diastolic 27–83
[2017-08-21] MEDS: MORPHINE SULFATE 4 MG/1ML SYG IV PRN ×3 (01:06→20:21)
[2017-08-21 04:46] LABS: HEMATOCRIT 30.1 % (36-48); MEAN CORPUSCULAR HEMOGLOBIN 30.5 pg (27.0-33.0); MEAN CORPUSCULAR HGB CONC 33.5 g/dL (32.0-36.0); MEAN CORPUSCULAR VOLUME 91.1 fL (79-99); PLATELET COUNT (AUTO) 314 K/uL (130-400); RED BLOOD CELL COUNT(AUTO) 3.31 MIL/uL (4.00-5.50); RED CELL DISTRIBUTION WIDTH 16.4 % (11.0-15.5); WHITE BLOOD COUNT (AUTO) 10.5 K/uL (4.8-10.8)
[2017-08-21 04:57] LABS: INR 1.09 (0.85-1.15); PROTHROMBIN TIME 11.4 SEC (9.6-11.6)
[2017-08-21 04:59] LABS: PARTIAL THROMBOPLASTIN TIME 108.7 SEC (26.3-35.5)
[2017-08-21 05:02] LABS: PHOSPHORUS 7.6 mg/dL (2.5-4.9); POTASSIUM 4.7 mmol/L (3.5-5.1)
[2017-08-21] MEDS: INSULIN HUMULIN R 100 UNIT/ML 3ML SQ SCH ×2 (06:35→11:30)
[2017-08-21] MEDS: INSULIN GLARGINE 100 UNITS/ML 10 ML VIAL SQ SCH (06:35)
[2017-08-21] MEDS: INSULIN LISPRO 100 UNIT/ML 3ML SQ SCH ×2 (07:36→11:30)
[2017-08-21] MEDS: MONTELUKAST SODIUM 10 MG TAB PO SCH (07:37)
[2017-08-21] MEDS: ASPIRIN 81 MG EC TAB PO SCH (07:37)
[2017-08-21] MEDS: VITAMIN B COMPLEX 1 CAPSULE PO SCH (07:37)
[2017-08-21] MEDS: CHOLECALCIFEROL 1000 UNIT PO SCH (07:37)
[2017-08-21] MEDS: FAMOTIDINE 20MG TAB 20 MG TAB PO SCH (07:37)
[2017-08-21] MEDS: GABAPENTIN 300 MG CAPSULE PO SCH (07:40)
[2017-08-21] MEDS: NITROGLYCERIN 1GM/1 INCH PACKET TD SCH ×2 (08:06)
[2017-08-21] MEDS: METOPROLOL TARTRATE 25 MG TAB PO SCH (08:06)
[2017-08-21] MEDS: FLUTICASONE PROPIONATE 50MCG/SPRAY 16 GM BOTTLE EN SCH (08:06)
[2017-08-21] MEDS ORDERED: NITROGLYCERIN 50 MG/D5% WATER 1 BOT ONE (08:47)
[2017-08-21] MEDS ORDERED: OCTYL 2-CYANOACRYLATE 1 EACH TP ONE (12:22)
[2017-08-21] MEDS ORDERED: PAPAVERINE HCL 30 MG/ML 2ML VIAL ONE (12:22)
[2017-08-21] MEDS ORDERED: BACITRACIN 50,000 UNIT VIAL ONE (12:23)
[2017-08-21] MEDS ORDERED: THROMBIN-JMI 5000 UNIT/VIAL TP ONE (12:29)
[2017-08-21] MEDS ORDERED: HEPARIN SODIUM 1000UNIT/ML 10ML VIAL ONE ×2 (12:30→12:46)
[2017-08-21] MEDS ORDERED: GLYCOPYRROLATE 0.2 MG/ML 5 ML VIAL ONE (12:45)
[2017-08-21] MEDS ORDERED: PROTAMINE SULFATE 10 MG/ML 25ML VIAL IV ONE (12:45)
[2017-08-21] MEDS ORDERED: ESMOLOL HCL 10 MG/ML 10 ML VIAL ONE (12:45)
[2017-08-21] MEDS ORDERED: LIDOCAINE PF 2% 5ML ABBOJECT ONE (12:46)
[2017-08-21] MEDS ORDERED: EPINEPHRINE 1 MG/ML AMPULE ONE (12:46)
[2017-08-21] MEDS ORDERED: MIDAZOLAM HCL 1 MG/ML 5ML VIAL ONE (12:46)
[2017-08-21] MEDS ORDERED: NOREPINEPHRINE BITARTRATE 1 MG/1 ML ML IV ONE (12:46)
[2017-08-21] MEDS ORDERED: ROCURONIUM BROMIDE 10MG/1ML 5ML VL ONE (12:46)
[2017-08-21] MEDS ORDERED: NEOSTIGMINE 5MG/5ML SYR IV ONE (12:46)
[2017-08-21] MEDS ORDERED: MILRINONE-D5W 20 MG/100 ML 100 ML IV ONE (12:46)
[2017-08-21] MEDS ORDERED: FENTANYL CITRATE PF 50 MCG/1 ML 20ML VIAL IJ ONE (12:46)
[2017-08-21] MEDS ORDERED: AMINOCAPROIC ACID 250 MG/ML 20 ML VIAL IV ONE (12:46)
[2017-08-21] MEDS ORDERED: PROPOFOL 10 MG/ML 20ML VIAL IV ONE ×2 (12:46→14:19)
[2017-08-21 13:35] LABS: ABG BASE EXCESS -0.3 mmol/L (-2.0-3.0); ABG HCO3 23.7 mmol/L (21.0-28.0); ABG OXYGEN SATURATION 99.1 % (95.0-99.0); ABG PCO2 36 mmHg (32-45)
[2017-08-21 14:48] LABS: ABG BASE EXCESS -6.4 mmol/L (-2.0-3.0); ABG OXYGEN SATURATION 80.4 % (95.0-99.0); ABG PCO2 44 mmHg (32-45)
[2017-08-21] MEDS ORDERED: SODIUM BICARB 50MEQ 50ML VIAL ONE ×8 (15:16→21:22)
[2017-08-21] MEDS ORDERED: SODIUM BICARB 8.4% 50ML SYRINGE ONE (15:20)
[2017-08-21 15:40] LABS: ABG HCO3 23.4 mmol/L (21.0-28.0); ABG OXYGEN SATURATION 99.1 % (95.0-99.0); ABG PCO2 42 mmHg (32-45)
[2017-08-21 16:02] LABS: ABG BASE EXCESS -5.6 mmol/L (-2.0-3.0); ABG HCO3 20.7 mmol/L (21.0-28.0); ABG OXYGEN SATURATION 98.9 % (95.0-99.0); ABG PCO2 44 mmHg (32-45)
[2017-08-21] MEDS ORDERED: SODIUM CHLORIDE 0.9% 500ML 500 ML IV SCH (16:20)
[2017-08-21] MEDS ORDERED: NITROGLYCERIN 50 MG/D5% WATER 250 BOT IV SCH (16:30)
[2017-08-21] MEDS ORDERED: ACETAMINOPHEN 650 MG SUPPOSITORY RC PRN (16:30)
[2017-08-21] MEDS ORDERED: MAGNESIUM 2GM PREMIX 50ML 50 ML IV PRN (16:30)
[2017-08-21] MEDS ORDERED: GLUCAGON 1MG KIT 1 MG ML IM PRN (16:30)
[2017-08-21] MEDS ORDERED: POTASSIUM CHLORIDE 20MEQ/100ML 100 ML IV PRN (16:30)
[2017-08-21] MEDS ORDERED: PROPOFOL 1000 MG/100 ML 100 ML IV PRN (16:30)
[2017-08-21] MEDS ORDERED: NICARDIPINE HCL 100 MG in SODIUM CHLORIDE 0.9% 100 ML IV PRN (16:30)
[2017-08-21] MEDS ORDERED: EPINEPHRINE 2 MG in SODIUM CHLORIDE 0.9% 250 ML IV PRN (16:30)
[2017-08-21] MEDS ORDERED: DEXTROSE 50%-WATER 50 ML DISP.SYRIN IV PRN (16:30)
[2017-08-21] MEDS ORDERED: CALCIUM GLUCONATE 1 GM in SODIUM CHLORIDE 0.9% 50 ML IV PRN (16:30)
[2017-08-21] MEDS ORDERED: ALBUMIN (HUMAN) 5% 250 ML IV PRN (16:30)
[2017-08-21] MEDS ORDERED: SODIUM CHLORIDE 0.9% 10 ML VIAL IVP PRN (16:30)
[2017-08-21] MEDS ORDERED: AMINOCAPROIC ACID 15,000 MG in SODIUM CHLORIDE 0.9% 250 ML IV SCH (16:30)
[2017-08-21] MEDS ORDERED: SODIUM CHLORIDE 0.9% 250 ML IV PRN (16:30)
[2017-08-21] MEDS ORDERED: POTASSIUM PHOS 15 mMOL+NS250ML 250 ML IV PRN (16:30)
[2017-08-21] MEDS ORDERED: SODIUM CHLORIDE 0.9% 1000ML 1,000 ML IV SCH (16:30)
[2017-08-21 17:11] LABS: ABG BASE EXCESS -7.5 mmol/L (-2.0-3.0); ABG HCO3 18.4 mmol/L (21.0-28.0); ABG PCO2 39 mmHg (32-45)
[2017-08-21 17:22] LABS: HEMATOCRIT 29.7 % (36-48); MEAN CORPUSCULAR HEMOGLOBIN 30.1 pg (27.0-33.0); MEAN CORPUSCULAR HGB CONC 32.6 g/dL (32.0-36.0); MEAN CORPUSCULAR VOLUME 92.3 fL (79-99); PLATELET COUNT (AUTO) 353 K/uL (130-400); RED BLOOD CELL COUNT(AUTO) 3.22 MIL/uL (4.00-5.50); RED CELL DISTRIBUTION WIDTH 16.7 % (11.0-15.5); WHITE BLOOD COUNT (AUTO) 28.3 K/uL (4.8-10.8)
[2017-08-21] MEDS: SODIUM BICARB 8.4% 50ML SYRINGE IV PRN ×7 (17:24→21:26)
[2017-08-21 17:32] LABS: MAGNESIUM 1.9 mg/dL (1.80-2.40); POTASSIUM 3.7 mmol/L (3.5-5.1)
[2017-08-21] MEDS: NOREPINEPHRINE 4MG/NS 250ML 250 ML IV PRN (17:39)
[2017-08-21] MEDS: INSULIN REGULAR, HUMAN 3ML 100 UNIT in SODIUM CHLORIDE 0.9% 99 ML IV SCH ×2 (17:47)
[2017-08-21] MEDS: MORPHINE SULFATE 2 MG/ML 1ML SYG IV PRN ×2 (17:59→18:32)
[2017-08-21 18:04] LABS: ABG BASE EXCESS -4.5 mmol/L (-2.0-3.0); ABG HCO3 20.5 mmol/L (21.0-28.0); ABG PCO2 38 mmHg (32-45)
[2017-08-21 19:03] LABS: ABG HCO3 20.9 mmol/L (21.0-28.0); ABG PCO2 42 mmHg (32-45)
[2017-08-21] MEDS ORDERED: EPINEPHRINE 8 MG in SODIUM CHLORIDE 0.9% 250 ML IV PRN (19:45)
[2017-08-21 21:04] LABS: ABG BASE EXCESS -5.4 mmol/L (-2.0-3.0); ABG HCO3 20.5 mmol/L (21.0-28.0); ABG OXYGEN SATURATION 97.2 % (95.0-99.0); ABG PCO2 41 mmHg (32-45)
[2017-08-21 22:34] LABS: HEMATOCRIT 27.6 % (36-48)
[2017-08-21 22:45] LABS: MAGNESIUM 2.5 mg/dL (1.80-2.40)
[2017-08-21 22:47] LABS: POTASSIUM 2.8 mmol/L (3.5-5.1)
[2017-08-21] MEDS ORDERED: CALCIUM GLUCONATE 1 GM/10 ML VIAL IV ONE (23:21)
[2017-08-21] MEDS ORDERED: SODIUM CHLORIDE 0.9% 100 ML IV ONE (23:22)
[2017-08-22] VITALS (32 sets, daily range): BP systolic 50–148; BP diastolic 32–76
[2017-08-22 00:09] LABS: ABG HCO3 25.3 mmol/L (21.0-28.0); ABG OXYGEN SATURATION 98.9 % (95.0-99.0); ABG PCO2 32 mmHg (32-45)
[2017-08-22] MEDS ORDERED: CEFUROXIME 1.5GM+NS 100ML 100 ML IV SCH (00:30)
[2017-08-22] MEDS: MORPHINE SULFATE 4 MG/1ML SYG IV PRN ×2 (00:41→07:29)
[2017-08-22] MEDS: CEFUROXIME SODIUM 1.5 GM VIAL IVP SCH ×2 (01:28→12:59)
[2017-08-22] MEDS: INSULIN REGULAR, HUMAN 3ML 100 UNIT in SODIUM CHLORIDE 0.9% 99 ML IV SCH ×2 (03:26)
[2017-08-22 03:47] LABS: ABG BASE EXCESS 6.4 mmol/L (-2.0-3.0); ABG HCO3 28.8 mmol/L (21.0-28.0); ABG PCO2 34 mmHg (32-45)
[2017-08-22 04:01] LABS: HEMATOCRIT 26.8 % (36-48); MEAN CORPUSCULAR HEMOGLOBIN 30.9 pg (27.0-33.0); MEAN CORPUSCULAR HGB CONC 34.2 g/dL (32.0-36.0); MEAN CORPUSCULAR VOLUME 90.3 fL (79-99); PLATELET COUNT (AUTO) 295 K/uL (130-400); RED BLOOD CELL COUNT(AUTO) 2.97 MIL/uL (4.00-5.50)
[2017-08-22 04:14] LABS: INR 1.11 (0.85-1.15); PARTIAL THROMBOPLASTIN TIME 27.1 SEC (26.3-35.5); PROTHROMBIN TIME 11.6 SEC (9.6-11.6)
[2017-08-22 04:17] LABS: CREATININE 7.8 mg/dL (0.5-1.5); MAGNESIUM 2.2 mg/dL (1.80-2.40); PHOSPHORUS 3.9 mg/dL (2.5-4.9); POTASSIUM 3.6 mmol/L (3.5-5.1)
[2017-08-22 06:36] LABS: ABG OXYGEN SATURATION 97.5 % (95.0-99.0); ABG PCO2 47 mmHg (32-45)
[2017-08-22 08:46] LABS: ABG HCO3 28.9 mmol/L (21.0-28.0); ABG PCO2 55 mmHg (32-45)
[2017-08-22 08:47] LABS: ABG BASE EXCESS 1.8 mmol/L (-2.0-3.0); ABG OXYGEN SATURATION 94.5 % (95.0-99.0)
[2017-08-22] MEDS: ONDANSETRON HCL 4 MG/2 ML VIAL IV PRN (09:27)
[2017-08-22] MEDS: NOREPINEPHRINE 4MG/NS 250ML 250 ML IV PRN ×2 (10:29→13:34)
[2017-08-22] MEDS: IPRATROPIUM 0.5 MG/2.5 ML INH IH SCH (11:55)
[2017-08-22] MEDS: BUDESONIDE 0.5 MG/2 ML INH IH PRN ×2 (11:55→21:24)
[2017-08-22] MEDS: PANTOPRAZOLE SODIUM 40 MG TABLET.DR PO SCH (12:55)
[2017-08-22] MEDS: ACETAMINOPHEN 325 MG TAB PO PRN (12:56)
[2017-08-22] MEDS: ASPIRIN 81 MG EC TAB PO SCH (12:56)
[2017-08-22] MEDS: TRAMADOL HCL 50 MG TABLET PO PRN ×2 (18:15→22:53)
[2017-08-22] MEDS: IPRATROPIUM/ALBUTEROL SULFATE 3 ML SOLUTION IH PRN (18:28)
[2017-08-23] VITALS (12 sets, daily range): BP systolic 102–131; BP diastolic 39–63
[2017-08-23] MEDS: IPRATROPIUM/ALBUTEROL SULFATE 3 ML SOLUTION IH PRN ×3 (00:20→21:30)
[2017-08-23] MEDS: CEFUROXIME SODIUM 1.5 GM VIAL IVP SCH (01:45)
[2017-08-23 04:02] LABS: HEMATOCRIT 27.6 % (36-48); MEAN CORPUSCULAR HEMOGLOBIN 30.2 pg (27.0-33.0); MEAN CORPUSCULAR HGB CONC 32.2 g/dL (32.0-36.0); MEAN CORPUSCULAR VOLUME 93.7 fL (79-99); NUCLEATED RED BLOOD CELLS 0.2 % (0.0-0.19); PLATELET COUNT (AUTO) 215 K/uL (130-400); RED BLOOD CELL COUNT(AUTO) 2.94 MIL/uL (4.00-5.50); WHITE BLOOD COUNT (AUTO) 16.3 K/uL (4.8-10.8)
[2017-08-23 04:21] LABS: CREATININE 6.3 mg/dL (0.5-1.5); POTASSIUM 4.3 mmol/L (3.5-5.1)
[2017-08-23 04:23] LABS: MAGNESIUM 2.2 mg/dL (1.80-2.40); PHOSPHORUS 6.3 mg/dL (2.5-4.9)
[2017-08-23] MEDS: TRAMADOL HCL 50 MG TABLET PO PRN (04:52)
[2017-08-23] MEDS: BUDESONIDE 0.5 MG/2 ML INH IH PRN ×2 (06:21→19:12)
[2017-08-23] MEDS: ALBUTEROL SULFATE 0.083% 2.5 MG/3 ML INH IH PRN ×2 (06:21→11:01)
[2017-08-23] MEDS: ASPIRIN 81MG TAB.CHEW PO SCH (08:02)
[2017-08-23] MEDS: PANTOPRAZOLE SODIUM 40 MG TABLET.DR PO SCH (08:02)
[2017-08-23] MEDS: ASPIRIN 81 MG EC TAB PO SCH (08:08)
[2017-08-23] MEDS ORDERED: GABAPENTIN 100 MG CAPSULE ONE (09:32)
[2017-08-23] MEDS: IPRATROPIUM 0.5 MG/2.5 ML INH IH SCH (10:55)
[2017-08-23] MEDS: GABAPENTIN 100 MG CAPSULE PO SCH ×2 (15:29→22:39)
[2017-08-23] MEDS ORDERED: GABAPENTIN 100 MG CAPSULE PO SCH (21:00)
[2017-08-24] VITALS (9 sets, daily range): BP systolic 99–127; BP diastolic 37–56
[2017-08-24 04:25] LABS: POTASSIUM 5.1 mmol/L (3.5-5.1)
[2017-08-24 04:35] LABS: CREATININE 8.1 mg/dL (0.5-1.5)
[2017-08-24 05:49] LABS: BASOPHILS % (AUTO) 0.8 % (0.0-5.0); EOSINOPHILS % (AUTO) 4.7 % (0.0-8.0); HEMATOCRIT 24.4 % (36-48); LYMPHOCYTES % (AUTO) 8.1 % (21.0-51.0); MEAN CORPUSCULAR HEMOGLOBIN 31.6 pg (27.0-33.0); MEAN CORPUSCULAR HGB CONC 33.2 g/dL (32.0-36.0); MEAN CORPUSCULAR VOLUME 95.4 fL (79-99); MONOCYTES % (AUTO) 7.4 % (3.0-13.0); NUCLEATED RED BLOOD CELLS 0.3 % (0.0-0.19); PLATELET COUNT (AUTO) 239 K/uL (130-400); RED BLOOD CELL COUNT(AUTO) 2.55 MIL/uL (4.00-5.50); RED CELL DISTRIBUTION WIDTH 17.4 % (11.0-15.5); WHITE BLOOD COUNT (AUTO) 15.2 K/uL (4.8-10.8)
[2017-08-24] MEDS: IPRATROPIUM/ALBUTEROL SULFATE 3 ML SOLUTION IH PRN ×4 (06:20→23:33)
[2017-08-24] MEDS: BUDESONIDE 0.5 MG/2 ML INH IH PRN ×2 (06:21→18:43)
[2017-08-24] MEDS: PANTOPRAZOLE SODIUM 40 MG TABLET.DR PO SCH (08:47)
[2017-08-24] MEDS: GABAPENTIN 100 MG CAPSULE PO SCH (08:48)
[2017-08-24] MEDS: ASPIRIN 81MG TAB.CHEW PO SCH (08:48)
[2017-08-24] MEDS: ONDANSETRON HCL 4 MG/2 ML VIAL IV PRN ×2 (09:32→17:08)
[2017-08-24] MEDS: IPRATROPIUM 0.5 MG/2.5 ML INH IH SCH (13:58)
[2017-08-24] MEDS: INSULIN HUMULIN R 100 UNIT/ML 3ML SQ SCH ×2 (16:30→21:00)
[2017-08-24] MEDS: TRAMADOL HCL 50 MG TABLET PO PRN (19:51)
[2017-08-24] MEDS: ENOXAPARIN SODIUM 30 MG/0.3 ML SQ SCH (21:27)
[2017-08-25] VITALS (15 sets, daily range): BP systolic 90–162; BP diastolic 43–67
[2017-08-25] MEDS: TRAMADOL HCL 50 MG TABLET PO PRN (00:19)
[2017-08-25 05:29] LABS: HEMATOCRIT 23.1 % (36-48); MEAN CORPUSCULAR HEMOGLOBIN 30.9 pg (27.0-33.0); MEAN CORPUSCULAR HGB CONC 32.8 g/dL (32.0-36.0); MEAN CORPUSCULAR VOLUME 94.3 fL (79-99); NUCLEATED RED BLOOD CELLS 0.6 % (0.0-0.19); PLATELET COUNT (AUTO) 190 K/uL (130-400); RED BLOOD CELL COUNT(AUTO) 2.44 MIL/uL (4.00-5.50); RED CELL DISTRIBUTION WIDTH 16.8 % (11.0-15.5); WHITE BLOOD COUNT (AUTO) 9.8 K/uL (4.8-10.8)
[2017-08-25 05:38] LABS: POTASSIUM 5.3 mmol/L (3.5-5.1)
[2017-08-25 05:42] LABS: CREATININE 9.8 mg/dL (0.5-1.5)
[2017-08-25] MEDS: INSULIN HUMULIN R 100 UNIT/ML 3ML SQ SCH ×4 (05:58→20:56)
[2017-08-25] MEDS: PANTOPRAZOLE SODIUM 40 MG TABLET.DR PO SCH (09:00)
[2017-08-25] MEDS: IPRATROPIUM 0.5 MG/2.5 ML INH IH SCH (11:45)
[2017-08-25] MEDS: ENOXAPARIN SODIUM 30 MG/0.3 ML SQ SCH (13:54)
[2017-08-25] MEDS ORDERED: EPOETIN ALFA 20,000 UNIT/ML VIAL SQ SCH (14:15)
[2017-08-25] MEDS ORDERED: ONDANSETRON HCL 4 MG/2 ML VIAL IVP PRN (14:15)
[2017-08-25] MEDS ORDERED: HYDRALAZINE HCL 20 MG/ML VIAL IV PRN (16:15)
[2017-08-25] MEDS: ASPIRIN 81MG TAB.CHEW PO SCH (16:56)
[2017-08-25] MEDS: IPRATROPIUM/ALBUTEROL SULFATE 3 ML SOLUTION IH PRN (18:30)
[2017-08-26] VITALS (14 sets, daily range): BP systolic 98–159; BP diastolic 50–103
[2017-08-26] MEDS: ONDANSETRON HCL 4 MG/2 ML VIAL IV PRN (00:40)
[2017-08-26] MEDS: TRAMADOL HCL 50 MG TABLET PO PRN ×3 (00:40→20:08)
[2017-08-26] MEDS: GABAPENTIN 300 MG CAPSULE ONE ×2 (00:41→02:18)
[2017-08-26] MEDS: GABAPENTIN 300 MG CAPSULE PO SCH ×2 (00:45→20:09)
[2017-08-26 04:05] LABS: HEMATOCRIT 24.8 % (36-48)
[2017-08-26 04:11] LABS: CREATININE 7.2 mg/dL (0.5-1.5); POTASSIUM 5.1 mmol/L (3.5-5.1)
[2017-08-26] MEDS: INSULIN HUMULIN R 100 UNIT/ML 3ML SQ SCH ×4 (06:37→20:06)
[2017-08-26] MEDS: ENOXAPARIN SODIUM 30 MG/0.3 ML SQ SCH (09:02)
[2017-08-26] MEDS: ASPIRIN 81MG TAB.CHEW PO SCH (09:02)
[2017-08-26] MEDS: PANTOPRAZOLE SODIUM 40 MG TABLET.DR PO SCH (09:02)
[2017-08-26] MEDS: ACETAMINOPHEN 325 MG TAB PO PRN (17:20)
[2017-08-26] MEDS: METOPROLOL TARTRATE 25 MG TAB PO SCH (20:09)
[2017-08-27] VITALS (7 sets, daily range): BP systolic 108–146; BP diastolic 53–66
[2017-08-27] MEDS: GABAPENTIN 300 MG CAPSULE PO SCH ×2 (00:36→21:54)
[2017-08-27 03:41] LABS: HEMATOCRIT 25.2 % (36-48); MEAN CORPUSCULAR HEMOGLOBIN 30.6 pg (27.0-33.0); MEAN CORPUSCULAR HGB CONC 32.2 g/dL (32.0-36.0); MEAN CORPUSCULAR VOLUME 94.8 fL (79-99); PLATELET COUNT (AUTO) 318 K/uL (130-400); RED BLOOD CELL COUNT(AUTO) 2.65 MIL/uL (4.00-5.50); RED CELL DISTRIBUTION WIDTH 16.3 % (11.0-15.5); WHITE BLOOD COUNT (AUTO) 9.8 K/uL (4.8-10.8)
[2017-08-27 04:04] LABS: POTASSIUM 5.3 mmol/L (3.5-5.1)
[2017-08-27 04:07] LABS: CREATININE 9.1 mg/dL (0.5-1.5)
[2017-08-27] MEDS: INSULIN HUMULIN R 100 UNIT/ML 3ML SQ SCH ×4 (07:30→21:00)
[2017-08-27] MEDS: PANTOPRAZOLE SODIUM 40 MG TABLET.DR PO SCH (09:00)
[2017-08-27] MEDS: METOPROLOL TARTRATE 25 MG TAB PO SCH ×2 (09:00→21:54)
[2017-08-27] MEDS: ASPIRIN 81MG TAB.CHEW PO SCH (09:09)
[2017-08-27] MEDS: TRAMADOL HCL 50 MG TABLET PO PRN ×2 (09:10→19:38)
[2017-08-27] MEDS: ENOXAPARIN SODIUM 30 MG/0.3 ML SQ SCH (09:11)
[2017-08-27] MEDS ORDERED: COMPOUND IV REFRIGERATED 1 EACH IVSOLN MISC PRN (14:00)
[2017-08-27] MEDS ORDERED: ALBUMIN (HUMAN) 25% 100 ML IV PRN (16:15)
[2017-08-27] MEDS ORDERED: SODIUM CHLORIDE 0.9% 1000ML 1,000 ML IV PRN (16:15)
[2017-08-27] MEDS ORDERED: 0.9% SODIUM CHLORIDE 250 ML IV BAG IV PRN (16:15)
[2017-08-27] MEDS ORDERED: HEPARIN SODIUM 5000UNIT/ML 1ML VIAL IJ PRN (16:30)
[2017-08-27] MEDS ORDERED: HYDRALAZINE HCL 20 MG/ML VIAL ONE (16:36)
[2017-08-27] MEDS: ONDANSETRON HCL 4 MG/2 ML VIAL IV PRN (16:44)
[2017-08-27] MEDS ORDERED: EPOETIN ALFA 20,000 UNIT/ML VIAL SQ SCH (21:00)
[2017-08-27] MEDS: FAMOTIDINE 20MG TAB 20 MG TAB PO SCH (21:55)
[2017-08-28] MEDS: GABAPENTIN 300 MG CAPSULE PO SCH ×3 (00:45→22:31)
[2017-08-28] MEDS: AMLODIPINE BESYLATE 5 MG TAB PO SCH ×2 (01:21→10:09)
[2017-08-28 04:05] LABS: HEMATOCRIT 26.1 % (36-48); MEAN CORPUSCULAR HEMOGLOBIN 30.7 pg (27.0-33.0); MEAN CORPUSCULAR HGB CONC 32.9 g/dL (32.0-36.0); MEAN CORPUSCULAR VOLUME 93.1 fL (79-99); NUCLEATED RED BLOOD CELLS 1.1 % (0.0-0.19); PLATELET COUNT (AUTO) 369 K/uL (130-400); RED CELL DISTRIBUTION WIDTH 16.4 % (11.0-15.5); WHITE BLOOD COUNT (AUTO) 11.9 K/uL (4.8-10.8)
[2017-08-28 04:09] VITALS: BP 131/61
[2017-08-28 04:22] LABS: ALBUMIN 2.1 g/dL (3.5-5.0); BILIRUBIN,TOTAL 0.3 mg/dL (0.2-1.0); CREATININE 6.5 mg/dL (0.5-1.5); PHOSPHORUS 6.5 mg/dL (2.5-4.9); POTASSIUM 4.6 mmol/L (3.5-5.1); TOTAL PROTEIN, SERUM 6.4 g/dL (6.0-8.3)
[2017-08-28] MEDS: INSULIN HUMULIN R 100 UNIT/ML 3ML SQ SCH ×4 (06:48→21:00)
[2017-08-28 08:08] VITALS: BP 126/62
[2017-08-28] MEDS: FAMOTIDINE 20MG TAB 20 MG TAB PO SCH (10:09)
[2017-08-28] MEDS: METOPROLOL TARTRATE 25 MG TAB PO SCH ×2 (10:09→22:28)
[2017-08-28] MEDS: ASPIRIN 81MG TAB.CHEW PO SCH (10:09)
[2017-08-28] MEDS: ENOXAPARIN SODIUM 30 MG/0.3 ML SQ SCH (10:11)
[2017-08-28 12:05] VITALS: BP 146/68
[2017-08-28] MEDS: TRAMADOL HCL 50 MG TABLET PO PRN ×2 (12:24→23:51)
[2017-08-28 16:00] VITALS: BP 113/64
[2017-08-28 19:30] VITALS: BP 116/64
[2017-08-28 23:39] VITALS: BP 111/54
[2017-08-29 03:43] VITALS: BP 121/66
[2017-08-29 04:17] LABS: HEMATOCRIT 26.7 % (36-48); MEAN CORPUSCULAR HGB CONC 32.1 g/dL (32.0-36.0); MEAN CORPUSCULAR VOLUME 93.4 fL (79-99); NUCLEATED RED BLOOD CELLS 1.1 % (0.0-0.19); PLATELET COUNT (AUTO) 376 K/uL (130-400); RED BLOOD CELL COUNT(AUTO) 2.86 MIL/uL (4.00-5.50); RED CELL DISTRIBUTION WIDTH 16.1 % (11.0-15.5); WHITE BLOOD COUNT (AUTO) 14.8 K/uL (4.8-10.8)
[2017-08-29 04:37] LABS: POTASSIUM 4.3 mmol/L (3.5-5.1)
[2017-08-29 04:44] LABS: CREATININE 7.9 mg/dL (0.5-1.5)
[2017-08-29] MEDS: INSULIN HUMULIN R 100 UNIT/ML 3ML SQ SCH ×4 (06:25→20:38)
[2017-08-29 07:00] VITALS: BP 113/55
[2017-08-29 11:00] VITALS: BP_SYST 115; BP_SYST 128; BP_DIAS 55; BP_DIAS 60
[2017-08-29] MEDS: ASPIRIN 81MG TAB.CHEW PO SCH (11:03)
[2017-08-29] MEDS: AMLODIPINE BESYLATE 5 MG TAB PO SCH (11:04)
[2017-08-29] MEDS: METOPROLOL TARTRATE 25 MG TAB PO SCH ×2 (11:04→20:35)
[2017-08-29] MEDS: FAMOTIDINE 20MG TAB 20 MG TAB PO SCH (11:04)
[2017-08-29] MEDS: ENOXAPARIN SODIUM 30 MG/0.3 ML SQ SCH (11:05)
[2017-08-29] MEDS: IPRATROPIUM 0.5 MG/2.5 ML INH IH SCH (11:45)
[2017-08-29] MEDS ORDERED: VANCOMYCIN PROTOCOL PER PHARMACY IV SCH (12:30)
[2017-08-29] MEDS: ZOSYN 3.375GM+NS 50ML 50 ML IV SCH ×3 (13:00→21:00)
[2017-08-29] MEDS ORDERED: VANCOMYCIN 1.5 GM in SODIUM CHLORIDE 0.9% 250 ML IV ONE (13:00)
[2017-08-29] MEDS ORDERED: COMPOUND IV REFRIGERATED 1 EACH IVSOLN MISC PRN (13:45)
[2017-08-29 16:00] VITALS: BP 112/64
[2017-08-29] MEDS ORDERED: LACTULOSE 20 GM/30 ML UDCUP PO PRN (17:00)
[2017-08-29 19:42] VITALS: BP 120/60
[2017-08-29] MEDS: GABAPENTIN 300 MG CAPSULE PO SCH ×2 (20:04→20:35)
[2017-08-29] MEDS ORDERED: INSULIN HUMULIN R 100 UNIT/ML 3ML ONE (20:41)
[2017-08-29 23:31] VITALS: BP 115/58
[2017-08-30] VITALS (11 sets, daily range): BP systolic 99–138; BP diastolic 52–71
[2017-08-30] MEDS: INSULIN HUMULIN R 100 UNIT/ML 3ML SQ SCH ×4 (06:24→20:57)
[2017-08-30 06:27] LABS: HEMATOCRIT 26.4 % (36-48); MEAN CORPUSCULAR HEMOGLOBIN 30.6 pg (27.0-33.0); MEAN CORPUSCULAR HGB CONC 32.4 g/dL (32.0-36.0); MEAN CORPUSCULAR VOLUME 94.3 fL (79-99); NUCLEATED RED BLOOD CELLS 0.6 % (0.0-0.19); PLATELET COUNT (AUTO) 377 K/uL (130-400); RED BLOOD CELL COUNT(AUTO) 2.79 MIL/uL (4.00-5.50); RED CELL DISTRIBUTION WIDTH 16.7 % (11.0-15.5); WHITE BLOOD COUNT (AUTO) 13.3 K/uL (4.8-10.8)
[2017-08-30 06:41] LABS: CREATININE 6.4 mg/dL (0.5-1.5); POTASSIUM 3.6 mmol/L (3.5-5.1)
[2017-08-30] MEDS: ASPIRIN 81MG TAB.CHEW PO SCH (08:29)
[2017-08-30] MEDS: FAMOTIDINE 20MG TAB 20 MG TAB PO SCH (08:29)
[2017-08-30] MEDS: METOPROLOL TARTRATE 25 MG TAB PO SCH ×2 (08:29→21:04)
[2017-08-30] MEDS: AMLODIPINE BESYLATE 5 MG TAB PO SCH (08:29)
[2017-08-30] MEDS: ENOXAPARIN SODIUM 30 MG/0.3 ML SQ SCH (08:33)
[2017-08-30] MEDS: ZOSYN 3.375GM+NS 50ML 50 ML IV SCH ×2 (09:00→21:04)
[2017-08-30] MEDS: IPRATROPIUM 0.5 MG/2.5 ML INH IH SCH (11:45)
[2017-08-30] MEDS ORDERED: SODIUM BICARB 50MEQ 50ML VIAL ONE (12:41)
[2017-08-30] MEDS ORDERED: LIDOCAINE HCL 2% 20ML ONE (12:42)
[2017-08-30 12:43] LABS: INR 1.08 (0.85-1.15); PROTHROMBIN TIME 11.3 SEC (9.6-11.6)
[2017-08-30] MEDS: GABAPENTIN 300 MG CAPSULE PO SCH ×2 (21:03→21:11)
[2017-08-30] MEDS: TRAMADOL HCL 50 MG TABLET PO PRN (22:12)
[2017-08-31 03:56] LABS: HEMATOCRIT 23.1 % (36-48); MEAN CORPUSCULAR HEMOGLOBIN 32.5 pg (27.0-33.0); MEAN CORPUSCULAR HGB CONC 34.7 g/dL (32.0-36.0); MEAN CORPUSCULAR VOLUME 93.8 fL (79-99); NUCLEATED RED BLOOD CELLS 0.4 % (0.0-0.19); PLATELET COUNT (AUTO) 318 K/uL (130-400); RED BLOOD CELL COUNT(AUTO) 2.46 MIL/uL (4.00-5.50); RED CELL DISTRIBUTION WIDTH 16.6 % (11.0-15.5); WHITE BLOOD COUNT (AUTO) 11.5 K/uL (4.8-10.8)
[2017-08-31 04:06] LABS: POTASSIUM 3.4 mmol/L (3.5-5.1)
[2017-08-31 04:35] LABS: CREATININE 8.1 mg/dL (0.5-1.5)
[2017-08-31 04:39] VITALS: BP 146/64
[2017-08-31] MEDS: INSULIN HUMULIN R 100 UNIT/ML 3ML SQ SCH ×6 (06:31→20:45)
[2017-08-31 07:17] VITALS: BP 112/51
[2017-08-31] MEDS: FAMOTIDINE 20MG TAB 20 MG TAB PO SCH (08:01)
[2017-08-31] MEDS: AMLODIPINE BESYLATE 5 MG TAB PO SCH (08:02)
[2017-08-31] MEDS: ASPIRIN 81MG TAB.CHEW PO SCH (08:02)
[2017-08-31] MEDS: METOPROLOL TARTRATE 25 MG TAB PO SCH ×2 (08:02→20:42)
[2017-08-31] MEDS: ZOSYN 3.375GM+NS 50ML 50 ML IV SCH ×2 (08:24→20:43)
[2017-08-31] MEDS: ENOXAPARIN SODIUM 30 MG/0.3 ML SQ SCH (08:24)
[2017-08-31 10:54] VITALS: BP 117/58
[2017-08-31] MEDS: IPRATROPIUM 0.5 MG/2.5 ML INH IH SCH (11:45)
[2017-08-31] MEDS: TRAMADOL HCL 50 MG TABLET PO PRN ×2 (12:54→21:34)
[2017-08-31 16:03] VITALS: BP 110/53
[2017-08-31] MEDS: GABAPENTIN 300 MG CAPSULE PO SCH ×2 (19:44→20:43)
[2017-08-31 19:46] VITALS: BP 117/53
[2017-09-01 00:45] VITALS: BP 123/59
[2017-09-01] MEDS: TRAMADOL HCL 50 MG TABLET PO PRN ×2 (02:36→11:00)
[2017-09-01 03:58] VITALS: BP 115/58
[2017-09-01 04:15] LABS: HEMATOCRIT 23.2 % (36-48); MEAN CORPUSCULAR HEMOGLOBIN 30.8 pg (27.0-33.0); MEAN CORPUSCULAR VOLUME 93.5 fL (79-99); NUCLEATED RED BLOOD CELLS 0.1 % (0.0-0.19); PLATELET COUNT (AUTO) 337 K/uL (130-400); RED BLOOD CELL COUNT(AUTO) 2.48 MIL/uL (4.00-5.50); RED CELL DISTRIBUTION WIDTH 17.4 % (11.0-15.5); WHITE BLOOD COUNT (AUTO) 11.5 K/uL (4.8-10.8)
[2017-09-01 04:46] LABS: POTASSIUM 3.9 mmol/L (3.5-5.1)
[2017-09-01 04:50] LABS: CREATININE 9.5 mg/dL (0.5-1.5)
[2017-09-01] MEDS: INSULIN HUMULIN R 100 UNIT/ML 3ML SQ SCH (05:58)
[2017-09-01 07:00] VITALS: BP 118/54
[2017-09-01] MEDS: AMLODIPINE BESYLATE 5 MG TAB PO SCH (09:46)
[2017-09-01] MEDS: ASPIRIN 81MG TAB.CHEW PO SCH (09:46)
[2017-09-01] MEDS: FAMOTIDINE 20MG TAB 20 MG TAB PO SCH (09:46)
[2017-09-01] MEDS: ENOXAPARIN SODIUM 30 MG/0.3 ML SQ SCH (09:47)
[2017-09-01] MEDS: ZOSYN 3.375GM+NS 50ML 50 ML IV SCH (09:47)
[2017-09-01] MEDS: METOPROLOL TARTRATE 25 MG TAB PO SCH (09:47)
[2017-09-01 11:00] VITALS: BP 122/58
[2017-09-01] MEDS ORDERED: VANCOMYCIN 1GM+NS 250ML 250 ML IV NR (15:00)
[2017-09-01] MEDS ORDERED: MUPIROCIN OINTMENT 22 GM TUBE TP SCH (15:15)
[2017-09-01] MEDS ORDERED: EPOETIN ALFA 20,000 UNIT/ML VIAL SQ SCH (16:00)
== END 2017-09-01 17:35 | disposition home health service (06) | DRG 166 ==
LOC: EDH 23:36 → OBSVTOIN 23:37 → EDHIP 23:37 → 2AH 08-16 16:16 → 2DH 08-18 17:49 → 2BH 08-20 13:06 → 2CV 08-21 13:03 → 2BH 08-22 15:48 → 2AH 08-26 13:05 → UNDODISIN 08-27 12:00
PROVIDERS: ADMIT Internal Medicine Critical Care Medicine; ATTEND Internal Medicine Critical Care Medicine
PROC: 5A1D70Z Performance of Urinary Filtration, Intermittent, Less than 6 Hours Per Day (ICD-10-PCS; 2017-08-18)
PROC: 5A1D70Z Performance of Urinary Filtration, Intermittent, Less than 6 Hours Per Day (ICD-10-PCS; 2017-08-19)
PROC: 5A02210 Assistance with Cardiac Output using Balloon Pump, Continuous (ICD-10-PCS; 2017-08-20)
PROC: 4A023N7 Measurement of Cardiac Sampling and Pressure, Left Heart, Percutaneous Approach (ICD-10-PCS; 2017-08-20)
PROC: B2111ZZ Fluoroscopy of Multiple Coronary Arteries using Low Osmolar Contrast (ICD-10-PCS; 2017-08-20)
PROC: B2151ZZ Fluoroscopy of Left Heart using Low Osmolar Contrast (ICD-10-PCS; 2017-08-20)
PROC: 06BQ4ZZ Excision of Left Saphenous Vein, Percutaneous Endoscopic Approach (ICD-10-PCS; 2017-08-21)
PROC: 02100Z9 Bypass Coronary Artery, One Artery from Left Internal Mammary, Open Approach (ICD-10-PCS; principal; 2017-08-21 13:02)
PROC: 021209W Bypass Coronary Artery, Three Arteries from Aorta with Autologous Venous Tissue, Open Approach (ICD-10-PCS; 2017-08-21 13:02)
PROC: 5A1D70Z Performance of Urinary Filtration, Intermittent, Less than 6 Hours Per Day (ICD-10-PCS; 2017-08-22)
PROC: 5A1D70Z Performance of Urinary Filtration, Intermittent, Less than 6 Hours Per Day (ICD-10-PCS; 2017-08-25)
PROC: 5A1D70Z Performance of Urinary Filtration, Intermittent, Less than 6 Hours Per Day (ICD-10-PCS; 2017-08-27)
PROC: 5A1D70Z Performance of Urinary Filtration, Intermittent, Less than 6 Hours Per Day (ICD-10-PCS; 2017-08-29)
PROC: 02PAX3Z Removal of Infusion Device from Heart, External Approach (ICD-10-PCS; 2017-09-01)
PROC: 5A1D70Z Performance of Urinary Filtration, Intermittent, Less than 6 Hours Per Day (ICD-10-PCS; 2017-09-01)
DX: T82.7XXA Infection and inflammatory reaction due to other cardiac and vascular devices, implants and grafts, initial encounter (principal); G92 Toxic encephalopathy; E11.22 Type 2 diabetes mellitus with diabetic chronic kidney disease; E11.40 Type 2 diabetes mellitus with diabetic neuropathy, unspecified; E66.01 Morbid (severe) obesity due to excess calories; I25.110 Atherosclerotic heart disease of native coronary artery with unstable angina pectoris; I25.119 Atherosclerotic heart disease of native coronary artery with unspecified angina pectoris; I27.20 Pulmonary hypertension, unspecified; E11.51 Type 2 diabetes mellitus with diabetic peripheral angiopathy without gangrene; I38 Endocarditis, valve unspecified; B96.89 Other specified bacterial agents as the cause of diseases classified elsewhere; I34.0 Nonrheumatic mitral (valve) insufficiency; I42.2 Other hypertrophic cardiomyopathy; N18.6 End stage renal disease; E11.65 Type 2 diabetes mellitus with hyperglycemia; E78.5 Hyperlipidemia, unspecified; D64.9 Anemia, unspecified; F20.9 Schizophrenia, unspecified; F31.9 Bipolar disorder, unspecified; E87.5 Hyperkalemia; E87.2 Acidosis; J44.9 Chronic obstructive pulmonary disease, unspecified; L93.0 Discoid lupus erythematosus; G47.33 Obstructive sleep apnea (adult) (pediatric); Y84.8 Other medical procedures as the cause of abnormal reaction of the patient, or of later complication, without mention of misadventure at the time of the procedure; I12.0 Hypertensive chronic kidney disease with stage 5 chronic kidney disease or end stage renal disease; G89.29 Other chronic pain; H54.8 Legal blindness, as defined in USA; Z99.2 Dependence on renal dialysis; Z88.6 Allergy status to analgesic agent; Z79.82 Long term (current) use of aspirin; Z79.02 Long term (current) use of antithrombotics/antiplatelets; Z79.4 Long term (current) use of insulin; Z91.041 Radiographic dye allergy status; Z95.5 Presence of coronary angioplasty implant and graft; Z91.19 Patient's noncompliance with other medical treatment and regimen
CPT/HCPCS: 33967; 36415; 36589; 71045; 78452; 80048; 80053; 80061; 80202; 82150; 82330; 82435; 82550; 82553; 82803; 82947; 82948; 83036; 83605; 83690; 83735; 83874; 84100; 84132; 84295; 84484; 85014; 85018; 85025; 85027; 85347; 85610; 85651; 85730; 86140; 86850; 86900; 86901; 86922; 87040; 87070; 87076; 87186; 90935; 93005; 93017; 93306; 93458; 93880; 94002; 94003; 94010; 94150; 94640; 94660; 94664; 96374; 97039; A4218; A7048; A9500; C1894; J0171; J0360; J0610; J0697; J0885; J1170; J1200; J1644; J1650; J1720; J1815; J1885; J2001; J2250; J2260; J2270; J2405; J2440; J2543; J2704; J2710; J2720; J2785; J2930; J3010; J3370; J3475; J3480; J3490; J7030; J7040; J7070; P9045; Q0163; Q9967

== ENCOUNTER 2017-09-03 12:27 | Emergency (ER) | payer MEDICAID ==
[~2017-09-03 12:27] MED LIST changes: +CHOL100040 PO; -DOXA1TAB2 PO; +FOLI1TAB85 PO; -METO75TA PO
[2017-09-03 12:56] LABS: BASOPHILS % (AUTO) 0.8 % (0.0-5.0); EOSINOPHILS % (AUTO) 10.1 % (0.0-8.0); HEMATOCRIT 25.7 % (36-48); LYMPHOCYTES % (AUTO) 14.6 % (21.0-51.0); MEAN CORPUSCULAR HEMOGLOBIN 31.5 pg (27.0-33.0); MEAN CORPUSCULAR HGB CONC 33.9 g/dL (32.0-36.0); MEAN CORPUSCULAR VOLUME 93.1 fL (79-99); MONOCYTES % (AUTO) 8.3 % (3.0-13.0); NEUTROPHILS % (AUTO) 66.2 % (40.0-77.0); NUCLEATED RED BLOOD CELLS 0.1 % (0.0-0.19); PLATELET COUNT (AUTO) 340 K/uL (130-400); RED BLOOD CELL COUNT(AUTO) 2.76 MIL/uL (4.00-5.50); RED CELL DISTRIBUTION WIDTH 18.6 % (11.0-15.5); WHITE BLOOD COUNT (AUTO) 9.2 K/uL (4.8-10.8)
[2017-09-03 13:22] LABS: INR 1.02 (0.85-1.15); PARTIAL THROMBOPLASTIN TIME 32.6 SEC (26.3-35.5); PROTHROMBIN TIME 10.7 SEC (9.6-11.6)
[2017-09-03 14:18] LABS: ALBUMIN 2.5 g/dL (3.5-5.0); BILIRUBIN,TOTAL 0.4 mg/dL (0.2-1.0); CREATINE KINASE MB 1.2 ng/mL (0.5-3.6); CREATININE 3.3 mg/dL (0.5-1.5); POTASSIUM 4.1 mmol/L (3.5-5.1); TOTAL PROTEIN, SERUM 7.2 g/dL (6.0-8.3)
[2017-09-03] MEDS ORDERED: METOCLOPRAMIDE 10 MG/2 ML VIAL ONE (14:51)
[2017-09-03] MEDS ORDERED: ACETAMINOPHEN EXTRA STRENGTH 500 MG TABLET ONE (14:51)
== END 2017-09-03 15:35 | disposition home or self-care (01) ==
LOC: EDH 12:27
DX: E11.22 Type 2 diabetes mellitus with diabetic chronic kidney disease (principal); R51 Headache; I12.0 Hypertensive chronic kidney disease with stage 5 chronic kidney disease or end stage renal disease; N18.6 End stage renal disease; J44.9 Chronic obstructive pulmonary disease, unspecified; I25.10 Atherosclerotic heart disease of native coronary artery without angina pectoris; H54.7 Unspecified visual loss; Z79.4 Long term (current) use of insulin; Z99.2 Dependence on renal dialysis; Z95.1 Presence of aortocoronary bypass graft; Z88.8 Allergy status to other drugs, medicaments and biological substances; Z88.6 Allergy status to analgesic agent; Z88.1 Allergy status to other antibiotic agents; Z91.041 Radiographic dye allergy status
CPT/HCPCS: 36415; 70450; 71045; 80053; 82553; 82948; 83874; 84484; 85025; 85610; 85730; 93005; 94761; 96374; 99285; J2765

== ENCOUNTER 2018-05-28 10:38 | Observation (INO) | payer MEDICARE ==
[2018-05-28] MEDS ORDERED: IPRATROPIUM/ALBUTEROL SULFATE 3 ML SOLUTION IH ONE ×2 (10:52→11:47)
[2018-05-28] MEDS ORDERED: METHYLPREDNISOLONE SOD SUCC 125MG/2ML VIAL ONE (10:58)
[2018-05-28 11:29] LABS: BASOPHILS % (AUTO) 1.4 % (0.0-5.0); EOSINOPHILS % (AUTO) 2.7 % (0.0-8.0); LYMPHOCYTES % (AUTO) 9.2 % (21.0-51.0); MEAN CORPUSCULAR HEMOGLOBIN 30.8 pg (27.0-33.0); MEAN CORPUSCULAR HGB CONC 32.4 g/dL (32.0-36.0); MONOCYTES % (AUTO) 9.8 % (3.0-13.0); NEUTROPHILS % (AUTO) 76.9 % (40.0-77.0); NUCLEATED RED BLOOD CELLS 0.1 % (0.0-0.19); PLATELET COUNT (AUTO) 286 K/uL (130-400); RED BLOOD CELL COUNT(AUTO) 3.68 MIL/uL (4.00-5.50); RED CELL DISTRIBUTION WIDTH 15.5 % (11.0-15.5); WHITE BLOOD COUNT (AUTO) 7.2 K/uL (4.8-10.8)
[2018-05-28 11:44] LABS: ALBUMIN 3.7 g/dL (3.5-5.0); BILIRUBIN,TOTAL 0.4 mg/dL (0.2-1.0); TOTAL PROTEIN, SERUM 8.5 g/dL (6.0-8.3)
[2018-05-28 11:51] LABS: INR 1.04 (0.85-1.15); PROTHROMBIN TIME 10.9 SEC (9.6-11.6)
[2018-05-28 11:52] LABS: CREATININE 10.2 mg/dL (0.5-1.5); POTASSIUM 7.1 mmol/L (3.5-5.1)
[2018-05-28] MEDS ORDERED: CALCIUM GLUCONATE 1 GM/10 ML VIAL IV ONE (12:30)
[2018-05-28] MEDS ORDERED: INSULIN HUMULIN R 100 UNIT/ML 3ML ONE (12:31)
[2018-05-28] MEDS ORDERED: DEXTROSE 50%-WATER 25 GM/50 ML VIAL ONE (12:34)
[2018-05-28] MEDS ORDERED: 0.9% SODIUM CHLORIDE 1000 ML IV BAG IV PRN (16:30)
[2018-05-28] MEDS ORDERED: SODIUM CHLORIDE 0.9% 1000ML 1,000 ML IV PRN (16:30)
[2018-05-28] MEDS ORDERED: LIDOCAINE HCL-MPF 1% 2ML VIAL IJ PRN (16:30)
[2018-05-28] MEDS ORDERED: HEPARIN SODIUM 5000UNIT/ML 1ML VIAL IJ PRN (16:30)
[2018-05-28] MEDS ORDERED: ACETAMINOPHEN 325 MG TAB PO PRN (16:30)
[2018-05-28] MEDS ORDERED: METOPROLOL TARTRATE 25 MG TAB ONE (21:13)
[2018-05-30 08:19] LABS: HEPATITIS Bs ANTIGEN SCREEN P Negative (Negative)
== END 2018-05-29 05:40 | disposition left against medical advice (07) ==
LOC: EDH 10:38 → EDHIP 14:20
PROVIDERS: ADMIT Internal Medicine Critical Care Medicine; ATTEND Internal Medicine Critical Care Medicine
DX: E87.5 Hyperkalemia (principal); I12.0 Hypertensive chronic kidney disease with stage 5 chronic kidney disease or end stage renal disease; N18.6 End stage renal disease; E11.22 Type 2 diabetes mellitus with diabetic chronic kidney disease; J44.9 Chronic obstructive pulmonary disease, unspecified; Z91.19 Patient's noncompliance with other medical treatment and regimen; Z99.2 Dependence on renal dialysis; Z90.49 Acquired absence of other specified parts of digestive tract; Z88.8 Allergy status to other drugs, medicaments and biological substances; Z79.899 Other long term (current) drug therapy
CPT/HCPCS: 36415; 71045; 80053; 82040; 82948; 83880; 84132; 84484; 85025; 85610; 85730; 86701; 86704; 86717; 87040 ×2; 87340; 87390; 87520; 93005; 94640 ×2; 94660; 99291; G0378 ×15; J0610; J1815; J2930; J7070; 90935; G0257

== ENCOUNTER 2018-10-09 08:47 | Emergency (ER) | payer MEDICARE ==
[2018-10-09 09:57] LABS: BASOPHILS % (AUTO) 0.7 % (0.0-5.0); EOSINOPHILS % (AUTO) 2.4 % (0.0-8.0); HEMATOCRIT 31.6 % (36-48); MEAN CORPUSCULAR HEMOGLOBIN 30.4 pg (27.0-33.0); MEAN CORPUSCULAR HGB CONC 32.9 g/dL (32.0-36.0); MEAN CORPUSCULAR VOLUME 92.5 fL (79-99); MONOCYTES % (AUTO) 8.1 % (3.0-13.0); NEUTROPHILS % (AUTO) 77.8 % (40.0-77.0); NUCLEATED RED BLOOD CELLS 0.1 % (0.0-0.19); PLATELET COUNT (AUTO) 214 K/uL (130-400); RED BLOOD CELL COUNT(AUTO) 3.41 MIL/uL (4.00-5.50); RED CELL DISTRIBUTION WIDTH 16.2 % (11.0-15.5); WHITE BLOOD COUNT (AUTO) 10.7 K/uL (4.8-10.8)
[2018-10-09] MEDS ORDERED: CEFTRIAXONE SODIUM 1 GM ONE (10:04)
[2018-10-09] MEDS ORDERED: SODIUM CHLORIDE 0.9% 50 ML IV ONE (10:05)
[2018-10-09 10:09] LABS: POTASSIUM 6.6 mmol/L (3.5-5.1)
[2018-10-09 10:10] LABS: CREATININE 9.6 mg/dL (0.5-1.5)
[2018-10-09] MEDS ORDERED: INSULIN HUMULIN R 100 UNIT/ML 3ML ONE (10:37)
[2018-10-09] MEDS ORDERED: DEXTROSE 50%-WATER 50 ML DISP.SYRIN IV ONE (10:40)
[2018-10-09] MEDS ORDERED: IPRATROPIUM/ALBUTEROL SULFATE 3 ML SOLUTION IH ONE (10:41)
[2018-10-09] MEDS ORDERED: VANCOMYCIN 1GM+NS 250ML 250 ML IV ONE (10:53)
== END 2018-10-09 12:27 | disposition home or self-care (01) ==
LOC: EDH 08:47
DX: L03.115 Cellulitis of right lower limb (principal); E87.5 Hyperkalemia; I12.0 Hypertensive chronic kidney disease with stage 5 chronic kidney disease or end stage renal disease; E11.22 Type 2 diabetes mellitus with diabetic chronic kidney disease; N18.6 End stage renal disease; I25.10 Atherosclerotic heart disease of native coronary artery without angina pectoris; J44.9 Chronic obstructive pulmonary disease, unspecified; F31.9 Bipolar disorder, unspecified; F20.9 Schizophrenia, unspecified; Z88.1 Allergy status to other antibiotic agents; Z99.2 Dependence on renal dialysis; Z79.4 Long term (current) use of insulin; Z88.5 Allergy status to narcotic agent; Z88.8 Allergy status to other drugs, medicaments and biological substances; Z91.041 Radiographic dye allergy status
CPT/HCPCS: 36415; 80048; 85025; 87040 ×2; 93005; 93971; 94640; 96365; 96375; 99285; J0696; J1815; J3370; J7070

== ENCOUNTER 2019-01-04 11:37 | Inpatient (IN) | payer MEDICARE ==
[~2019-01-04] VITALS: Ht 167.6 cm; Wt 113.4 kg
[~2019-01-04 11:37] MED LIST changes: -ALBU6.7H IH; +ALBU6.7H9 IH
[2019-01-04 12:41] LABS: BASOPHILS % (AUTO) 0.9 % (0.0-5.0); EOSINOPHILS % (AUTO) 1.7 % (0.0-8.0); LYMPHOCYTES % (AUTO) 15.6 % (21.0-51.0); MEAN CORPUSCULAR HEMOGLOBIN 31.2 pg (27.0-33.0); MEAN CORPUSCULAR VOLUME 94.8 fL (79-99); MONOCYTES % (AUTO) 7.4 % (3.0-13.0); NEUTROPHILS % (AUTO) 74.4 % (40.0-77.0); NUCLEATED RED BLOOD CELLS 0.7 % (0.0-0.19); PLATELET COUNT (AUTO) 332 K/uL (130-400); RED BLOOD CELL COUNT(AUTO) 2.06 MIL/uL (4.00-5.50); RED CELL DISTRIBUTION WIDTH 17.3 % (11.0-15.5); WHITE BLOOD COUNT (AUTO) 9.5 K/uL (4.8-10.8)
[2019-01-04 12:43] LABS: HEMATOCRIT 19.5 % (36-48)
[2019-01-04 12:59] LABS: INR 1.11 (0.85-1.15); PARTIAL THROMBOPLASTIN TIME 27.9 SEC (26.3-35.5); PROTHROMBIN TIME 11.6 SEC (9.6-11.6)
[2019-01-04 13:04] LABS: ALBUMIN 3.2 g/dL (3.5-5.0); BILIRUBIN,TOTAL 0.3 mg/dL (0.2-1.0)
[2019-01-04] MEDS ORDERED: FUROSEMIDE 10 MG/ML 4ML VIAL ONE (13:06)
[2019-01-04 13:07] LABS: CREATININE 9.7 mg/dL (0.5-1.5); POTASSIUM 6.6 mmol/L (3.5-5.1)
[2019-01-04 13:08] LABS: B-TYPE NATRIURETIC PEPTIDE 1830 pg/mL (0-100)
[2019-01-04] MEDS ORDERED: ONDANSETRON HCL 4 MG/2 ML VIAL ONE (13:21)
[2019-01-04] MEDS ORDERED: CALCIUM GLUCONATE 1 GM/10 ML VIAL IV ONE (13:21)
[2019-01-04] MEDS ORDERED: SODIUM BICARB 50MEQ 50ML VIAL ONE (13:22)
[2019-01-04] MEDS ORDERED: INSULIN HUMULIN R 100 UNIT/ML 3ML ONE (13:22)
[2019-01-04] MEDS ORDERED: SODIUM CHLORIDE 0.9% 50 ML IV ONE (13:23)
[2019-01-04] MEDS ORDERED: SODIUM CHLORIDE 0.9% 250 ML IV ONE (14:25)
[2019-01-04] MEDS ORDERED: HYDROCODONE/ACETAMINOPHEN 5/325 MG TAB ONE (15:43)
[2019-01-04] MEDS ORDERED: ONDANSETRON HCL 4 MG/2 ML VIAL IV PRN (16:00)
[2019-01-04] MEDS ORDERED: ACETAMINOPHEN 325 MG TAB PO PRN (16:00)
[2019-01-04] MEDS ORDERED: COMPOUND IV MISC 1 EACH IVSOLN MISC PRN (16:15)
[2019-01-04] MEDS: INSULIN HUMULIN R 100 UNIT/ML 3ML SQ SCH ×2 (16:30→20:22)
[2019-01-04 17:35] VITALS: BP 183/75
[2019-01-04] MEDS ORDERED: [UNRECOGNIZED DRUG - CODE] PO (18:35)
[2019-01-04] MEDS ORDERED: HYDR-4068 PO (18:35)
[2019-01-04] MEDS ORDERED: METO50TA18 PO (18:35)
[2019-01-04] MEDS ORDERED: LORA10TA7 PO (18:35)
[2019-01-04] MEDS ORDERED: SERT25TA5 PO (18:35)
[2019-01-04] MEDS ORDERED: ACET-66 PO (18:35)
[2019-01-04] MEDS ORDERED: CALC667C10 PO (18:35)
[2019-01-04] MEDS ORDERED: ATOR40TA71 PO (18:35)
[2019-01-04] MEDS ORDERED: MULT-1203 PO (18:35)
[2019-01-04 19:00] VITALS: BP 182/77
[2019-01-04] MEDS: HEPARIN SODIUM 5000UNIT/ML 1ML VIAL SQ SCH (20:25)
[2019-01-04 23:00] VITALS: BP 171/68
[2019-01-05 03:00] VITALS: BP 157/72
[2019-01-05] MEDS: INSULIN HUMULIN R 100 UNIT/ML 3ML SQ SCH ×4 (05:29→20:13)
[2019-01-05 05:43] LABS: MEAN CORPUSCULAR HEMOGLOBIN 31.1 pg (27.0-33.0); MEAN CORPUSCULAR VOLUME 91.6 fL (79-99); NUCLEATED RED BLOOD CELLS 0.3 % (0.0-0.19); PLATELET COUNT (AUTO) 267 K/uL (130-400); RED CELL DISTRIBUTION WIDTH 17.8 % (11.0-15.5); WHITE BLOOD COUNT (AUTO) 7.5 K/uL (4.8-10.8)
[2019-01-05 05:46] LABS: HEMATOCRIT 19.2 % (36-48)
--- NOTE | 2019-01-05 05:59 | NUR ---
CRITICAL LAB PAGED DR BROWN TO INFORM HIM OF H&H BEING 6.5/19.2, PENDING PHYSICIAN CALL BACK.
[2019-01-05 06:03] LABS: CREATININE 6.1 mg/dL (0.5-1.5); POTASSIUM 4.6 mmol/L (3.5-5.1)
[2019-01-05 08:13] VITALS: BP 165/85
--- NOTE | 2019-01-05 08:15 | NUR ---
paged to notify if additional orders for blood transfusion, pt s/p 1 unit yesterday, hgb from 6.4 to 6.5 s/p 1 unit of PRBC transfusion. Pending call back, Nursing will continue to follow up.
[2019-01-05] MEDS ORDERED: SODIUM CHLORIDE 0.9% 100 ML IV ONE (08:30)
[2019-01-05] MEDS: IRON SUCROSE COMPLEX 100 MG in SODIUM CHLORIDE 0.9% 50 ML IV SCH (08:31)
[2019-01-05] MEDS: FAMOTIDINE 20MG TAB 20 MG TAB PO SCH (08:32)
[2019-01-05] MEDS: HEPARIN SODIUM 5000UNIT/ML 1ML VIAL SQ SCH (08:34)
[2019-01-05] MEDS: SERTRALINE HCL 50 MG TABLET PO SCH (09:00)
[2019-01-05] MEDS ORDERED: METOPROLOL TARTRATE 50 MG TAB PO SCH (09:00)
[2019-01-05] MEDS: ASPIRIN 81 MG EC TAB PO SCH (09:00)
[2019-01-05] MEDS: FOLIC ACID/VITAMIN B COMP W-C 1 MG CAP/TAB PO SCH (09:00)
[2019-01-05] MEDS: BENZONATATE 100 MG CAPSULE PO SCH ×3 (09:00→20:38)
[2019-01-05] MEDS ORDERED: SUB PER P&T FOR ASTHMA OR COPD RECOMMENDATION IH SCH (09:00)
[2019-01-05] MEDS: FLUTICASONE PROPIONATE 50MCG/SPRAY 16 GM BOTTLE EN SCH (09:00)
[2019-01-05] MEDS: ***HM***(Cholecalciferol (Vitamin D3) (Vitamin D3) 1,000 UNIT) PO SCH (09:00)
[2019-01-05] MEDS ORDERED: SIMETHICONE 80 MG TAB.CHEW PO PRN (09:00)
[2019-01-05] MEDS ORDERED: NITROGLYCERIN 0.4 MG SL TAB SL SCH (09:00)
[2019-01-05] MEDS: LORATADINE 10 MG TABLET PO SCH (09:00)
[2019-01-05] MEDS: GABAPENTIN 300 MG CAPSULE PO SCH (09:00)
[2019-01-05] MEDS ORDERED: HYDRALAZINE HCL 20 MG/ML VIAL IM PRN (09:15)
[2019-01-05] MEDS: INSULIN LISPRO 100 UNIT/ML 3ML SQ SCH ×2 (12:02→17:00)
[2019-01-05 12:05] VITALS: BP 148/70
[2019-01-05] MEDS: CALCIUM ACETATE 667 MG CAPSULE PO SCH ×2 (12:14→17:00)
[2019-01-05] MEDS ORDERED: HYDRALAZINE HCL 20 MG/ML VIAL IV PRN (12:45)
--- NOTE | 2019-01-05 13:40 | NUR ---
PT S/P 1 UNIT OF PRBC TRANSFUSION, NO ADVERSE REACTION NOTED, VITAL SIGNS STABLE, NURSING WILL CONTINUE TO MONITOR.
--- NOTE | 2019-01-05 14:10 | NUR ---
DCP CM met with pt discussed dc plans. Pt is assist with ADL's, lives at home with spouse. Pt has a walker, wheelchair, oxygen equipments portable and stationary, cpap, active [place] [facility] [place] MWF 2:45pm, and goes to [facility] Fri-Fri 8-1pm. Denies any other equipments/services. Pt feels safe to go back home, spouse and family able to assist with transportation and needs as necessary. DC plan to home once stable. CM to cont to follow up. Addendum: 01/05/19 at 1412 by SAM OCONNELL LVN CM Amended: Links added.
[2019-01-05 16:34] VITALS: BP 135/67
[2019-01-05] MEDS ORDERED: PEG 3350/NA SULF,BICARB,CL/KCL 4000 ML SOLN PO SCH (17:00)
[2019-01-05] MEDS: BUDESONIDE 0.5 MG/2 ML INH IH SCH (17:06)
[2019-01-05 19:00] VITALS: BP 157/57
[2019-01-05 19:29] LABS: HEMATOCRIT 23.5 % (36-48)
[2019-01-05 19:57] LABS: INR 1.13 (0.85-1.15); PROTHROMBIN TIME 11.8 SEC (9.6-11.6)
[2019-01-05] MEDS: METOPROLOL TARTRATE 50 MG TAB PO SCH (20:38)
[2019-01-05] MEDS: HYDROCODONE/ACETAMINOPHEN 5/325 MG TAB PO PRN (20:39)
[2019-01-05] MEDS: MONTELUKAST SODIUM 10 MG TAB PO SCH (20:47)
[2019-01-05] MEDS: ATORVASTATIN CALCIUM 40 MG TABLET PO SCH (20:47)
[2019-01-05 23:00] VITALS: BP 174/74
[2019-01-06] VITALS (13 sets, daily range): BP systolic 129–184; BP diastolic 57–99
[2019-01-06] MEDS: IPRATROPIUM/ALBUTEROL SULFATE 3 ML SOLUTION IH PRN ×3 (01:46→19:21)
[2019-01-06] MEDS: INSULIN HUMULIN R 100 UNIT/ML 3ML SQ SCH ×4 (05:42→21:00)
[2019-01-06 05:44] LABS: EOSINOPHILS % (AUTO) 2.7 % (0.0-8.0); HEMATOCRIT 22.3 % (36-48); LYMPHOCYTES % (AUTO) 16.6 % (21.0-51.0); MEAN CORPUSCULAR HEMOGLOBIN 31.3 pg (27.0-33.0); MEAN CORPUSCULAR HGB CONC 33.9 g/dL (32.0-36.0); MEAN CORPUSCULAR VOLUME 92.3 fL (79-99); NEUTROPHILS % (AUTO) 70.7 % (40.0-77.0); NUCLEATED RED BLOOD CELLS 0.4 % (0.0-0.19); PLATELET COUNT (AUTO) 288 K/uL (130-400); RED BLOOD CELL COUNT(AUTO) 2.42 MIL/uL (4.00-5.50); RED CELL DISTRIBUTION WIDTH 17.2 % (11.0-15.5); WHITE BLOOD COUNT (AUTO) 7.5 K/uL (4.8-10.8)
[2019-01-06 05:56] LABS: ALBUMIN 3.1 g/dL (3.5-5.0); BILIRUBIN,TOTAL 0.5 mg/dL (0.2-1.0); PHOSPHORUS 4.3 mg/dL (2.5-4.9); POTASSIUM 4.4 mmol/L (3.5-5.1); TOTAL PROTEIN, SERUM 6.6 g/dL (6.0-8.3)
[2019-01-06 06:07] LABS: HEMOGLOBIN A1C 6.4 % (4.0-6.0)
[2019-01-06] MEDS: BUDESONIDE 0.5 MG/2 ML INH IH SCH ×2 (06:16→19:21)
[2019-01-06] MEDS: CALCIUM ACETATE 667 MG CAPSULE PO SCH ×3 (06:53→17:04)
[2019-01-06] MEDS: INSULIN GLARGINE 100 UNITS/ML 10 ML VIAL SQ SCH (07:30)
[2019-01-06] MEDS: INSULIN LISPRO 100 UNIT/ML 3ML SQ SCH ×3 (08:00→17:10)
[2019-01-06 08:12] LABS: HEPATITIS A ANTIBODY IGM Negative (Negative); HEPATITIS B CORE IGM Negative (Negative); HEPATITIS Bs ANTIGEN SCREEN P Negative (Negative)
[2019-01-06] MEDS: BENZONATATE 100 MG CAPSULE PO SCH ×3 (08:58→20:19)
[2019-01-06] MEDS: ASPIRIN 81 MG EC TAB PO SCH (08:58)
[2019-01-06] MEDS: SERTRALINE HCL 50 MG TABLET PO SCH (08:58)
[2019-01-06] MEDS: ***HM***(Cholecalciferol (Vitamin D3) (Vitamin D3) 1,000 UNIT) PO SCH (08:58)
[2019-01-06] MEDS: FOLIC ACID/VITAMIN B COMP W-C 1 MG CAP/TAB PO SCH (08:58)
[2019-01-06] MEDS: METOPROLOL TARTRATE 50 MG TAB PO SCH ×2 (08:58→20:19)
[2019-01-06] MEDS: GABAPENTIN 300 MG CAPSULE PO SCH (08:58)
[2019-01-06] MEDS: FAMOTIDINE 20MG TAB 20 MG TAB PO SCH (08:58)
[2019-01-06] MEDS: LORATADINE 10 MG TABLET PO SCH (08:58)
[2019-01-06] MEDS: FLUTICASONE PROPIONATE 50MCG/SPRAY 16 GM BOTTLE EN SCH (08:59)
[2019-01-06] MEDS: IRON SUCROSE COMPLEX 100 MG in SODIUM CHLORIDE 0.9% 50 ML IV SCH (08:59)
[2019-01-06] MEDS ORDERED: PROPOFOL 10 MG/ML 20ML VIAL IV ONE (12:02)
--- NOTE | 2019-01-06 13:35 | NUR ---
PT RETURNED FROM COLONOSCOPY/EGD PT RETURNED VS FOLLOWS T 97.6 P 56 R 16 BP 150/72 O2 100 C 2 LPM. PT IN NO DISTRESS OR PAIN. WILL CONT TO MONITOR
[2019-01-06] MEDS: MONTELUKAST SODIUM 10 MG TAB PO SCH (20:19)
[2019-01-06] MEDS: ATORVASTATIN CALCIUM 40 MG TABLET PO SCH (20:19)
[2019-01-06] MEDS: HYDROCODONE/ACETAMINOPHEN 5/325 MG TAB PO PRN (20:20)
[2019-01-07 04:00] VITALS: BP 162/76
[2019-01-07 06:12] LABS: BASOPHILS % (AUTO) 0.5 % (0.0-5.0); EOSINOPHILS % (AUTO) 2.9 % (0.0-8.0); HEMATOCRIT 23.5 % (36-48); MEAN CORPUSCULAR HEMOGLOBIN 31.2 pg (27.0-33.0); MEAN CORPUSCULAR VOLUME 94.5 fL (79-99); MONOCYTES % (AUTO) 9.9 % (3.0-13.0); NEUTROPHILS % (AUTO) 71.7 % (40.0-77.0); NUCLEATED RED BLOOD CELLS 0.3 % (0.0-0.19); PLATELET COUNT (AUTO) 216 K/uL (130-400); RED BLOOD CELL COUNT(AUTO) 2.49 MIL/uL (4.00-5.50); RED CELL DISTRIBUTION WIDTH 17.8 % (11.0-15.5); WHITE BLOOD COUNT (AUTO) 7.5 K/uL (4.8-10.8)
[2019-01-07] MEDS: INSULIN HUMULIN R 100 UNIT/ML 3ML SQ SCH ×2 (06:13→11:48)
[2019-01-07 06:28] LABS: ALBUMIN 2.9 g/dL (3.5-5.0); BILIRUBIN,TOTAL 0.5 mg/dL (0.2-1.0); CREATININE 5.2 mg/dL (0.5-1.5); POTASSIUM 4.8 mmol/L (3.5-5.1); TOTAL PROTEIN, SERUM 6.4 g/dL (6.0-8.3)
[2019-01-07] MEDS: BUDESONIDE 0.5 MG/2 ML INH IH SCH (06:40)
[2019-01-07] MEDS: IPRATROPIUM/ALBUTEROL SULFATE 3 ML SOLUTION IH PRN (06:49)
[2019-01-07 07:00] VITALS: BP 167/90
[2019-01-07] MEDS: INSULIN GLARGINE 100 UNITS/ML 10 ML VIAL SQ SCH (07:30)
[2019-01-07] MEDS: CALCIUM ACETATE 667 MG CAPSULE PO SCH ×2 (07:30→11:42)
[2019-01-07] MEDS: INSULIN LISPRO 100 UNIT/ML 3ML SQ SCH ×2 (08:00→11:49)
--- NOTE | 2019-01-07 09:30 | NUR ---
PT REQUESTING PAIN MEDICATION PCP INFORMED THIS NURSE THAT PATIENT REQUESTING PAIN MEDICATION FOR BODY SORENESS R/T FALL. THIS NURSE ENTERED THE ROOM TO ASSESS PATIENT TO WHICH PT STATED SHE STILL HURTS FROM THE FALL SCALE 9/10. NOTED TO BE AGITATED
--- NOTE | 2019-01-07 09:34 | NUR ---
MORNING MEDS AND PAIN MEDICATION THIS NURSE WAS PULLING PT MEDICATIONS WELL [place] FOR PAIN TO WHICH ANA M PCP INFORMED ME THAT PT AT NURSES STATION VERY AGGRESSIVE AND DEMANDING PAIN MEDICATION X 3. PT NOTED TO BE HEARD FROM HALLWAY SCREAMING.
[2019-01-07] MEDS: ASPIRIN 81 MG EC TAB PO SCH (09:35)
[2019-01-07] MEDS: GABAPENTIN 300 MG CAPSULE PO SCH (09:36)
[2019-01-07] MEDS: LORATADINE 10 MG TABLET PO SCH (09:36)
[2019-01-07] MEDS: SERTRALINE HCL 50 MG TABLET PO SCH (09:36)
[2019-01-07] MEDS: FOLIC ACID/VITAMIN B COMP W-C 1 MG CAP/TAB PO SCH (09:36)
[2019-01-07] MEDS: HYDROCODONE/ACETAMINOPHEN 5/325 MG TAB PO PRN (09:36)
--- NOTE | 2019-01-07 09:36 | NUR ---
MEDICATION ADMINISTERED MORNING MEDS/PAIN MEDICATION ADMINISTERED TO PT AT THIS TIME TO WHICH EXTREMELY AGITATED AND SCREAMING AT THIS POINT. PATIENT CRYING AND SCREAMING IN VULGAR LANGUAGE. MALE NURSE RUPINDER RN IN ROOM TO ASSIST AT THIS TIME IN CASE OF ESCALATED AGITATION. WAS ABLE TO CALM DOWN. PATIENT TOOK MEDS AT THIS TIME WHILE STILL SCREAMING CUSS WORDS AT THIS NURSE. MEDICATIONS HAVE NOW BEEN SWALLOWED TO WHICH PATIENT STATES "I FEEL MUCH BETTER NOW". THIS NURSE ATTEMPTED TO ADMINISTER FLONASE, INSULIN AND VENOFER TO WHICH STATES "THATS ENOUGH MEDICATION ARE YOU TRYING TO KILL HER". WILL CONT TO MONITOR
[2019-01-07] MEDS: BENZONATATE 100 MG CAPSULE PO SCH (09:37)
[2019-01-07] MEDS: FAMOTIDINE 20MG TAB 20 MG TAB PO SCH (09:37)
[2019-01-07] MEDS: ***HM***(Cholecalciferol (Vitamin D3) (Vitamin D3) 1,000 UNIT) PO SCH (09:39)
[2019-01-07] MEDS: METOPROLOL TARTRATE 50 MG TAB PO SCH (09:40)
[2019-01-07] MEDS: IRON SUCROSE COMPLEX 100 MG in SODIUM CHLORIDE 0.9% 50 ML IV SCH (09:41)
[2019-01-07] MEDS: FLUTICASONE PROPIONATE 50MCG/SPRAY 16 GM BOTTLE EN SCH (09:41)
[2019-01-07 11:00] VITALS: BP 166/71
[2019-01-07] MEDS ORDERED: FERS325 PO (11:09)
[2019-01-07] MEDS ORDERED: PANT40SU PO (12:18)
== END 2019-01-07 12:50 | disposition home or self-care (01) | DRG 391 ==
LOC: EDH 11:37 → OBSVTOIN 15:48 → EDHIP 15:48 → 3CH 17:14
PROVIDERS: ADMIT Internal Medicine; ATTEND Internal Medicine
PROC: 30233N1 Transfusion of Nonautologous Red Blood Cells into Peripheral Vein, Percutaneous Approach (ICD-10-PCS; principal; 2019-01-04)
PROC: 5A1D70Z Performance of Urinary Filtration, Intermittent, Less than 6 Hours Per Day (ICD-10-PCS; 2019-01-04)
PROC: 5A1D70Z Performance of Urinary Filtration, Intermittent, Less than 6 Hours Per Day (ICD-10-PCS; 2019-01-06)
PROC: 0DJD8ZZ Inspection of Lower Intestinal Tract, Via Natural or Artificial Opening Endoscopic (ICD-10-PCS; 2019-01-06)
PROC: 0DB68ZX Excision of Stomach, Via Natural or Artificial Opening Endoscopic, Diagnostic (ICD-10-PCS; 2019-01-06)
DX: K29.70 Gastritis, unspecified, without bleeding (principal); N18.6 End stage renal disease; I12.0 Hypertensive chronic kidney disease with stage 5 chronic kidney disease or end stage renal disease; Z68.41 Body mass index [BMI] 40.0-44.9, adult; E87.5 Hyperkalemia; E11.21 Type 2 diabetes mellitus with diabetic nephropathy; E11.22 Type 2 diabetes mellitus with diabetic chronic kidney disease; E87.70 Fluid overload, unspecified; E11.65 Type 2 diabetes mellitus with hyperglycemia; E66.9 Obesity, unspecified; E78.5 Hyperlipidemia, unspecified; F20.9 Schizophrenia, unspecified; F31.9 Bipolar disorder, unspecified; H54.8 Legal blindness, as defined in USA; I25.10 Atherosclerotic heart disease of native coronary artery without angina pectoris; K44.9 Diaphragmatic hernia without obstruction or gangrene; K64.8 Other hemorrhoids; K31.89 Other diseases of stomach and duodenum; K64.0 First degree hemorrhoids; D50.9 Iron deficiency anemia, unspecified; Z99.2 Dependence on renal dialysis; Z91.15 Patient's noncompliance with renal dialysis; Z91.19 Patient's noncompliance with other medical treatment and regimen; Z95.1 Presence of aortocoronary bypass graft; Z88.8 Allergy status to other drugs, medicaments and biological substances; Z91.041 Radiographic dye allergy status; Z82.5 Family history of asthma and other chronic lower respiratory diseases; Z82.49 Family history of ischemic heart disease and other diseases of the circulatory system; Z82.3 Family history of stroke; Z83.3 Family history of diabetes mellitus; K57.90 Diverticulosis of intestine, part unspecified, without perforation or abscess without bleeding
CPT/HCPCS: 36415; 36430; 43239; 45378; 71045; 73090; 73130; 73502; 73562; 74176; 80048; 80053; 80074; 82550; 82948; 83036; 83880; 84100; 84484; 85014; 85018; 85025; 85027; 85610; 85730; 86850; 86900; 86901; 86922; 88305; 90935; 93005; 94640; 94664; 99291; G0378; J0360; J0610; J1644; J1756; J1815; J1940; J2405; J2704; J3490; J7030; P9016

== ENCOUNTER 2019-01-28 20:37 | Inpatient (IN) | payer MEDICARE ==
[~2019-01-28] VITALS: Ht 167.6 cm; Wt 108.7 kg
[~2019-01-28 20:37] MED LIST changes: +ACET-66 PO; +ATOR40TA71 PO; +CALC667C10 PO; +FERS325 PO; +HYDR-4068 PO; +LORA10TA7 PO; +METO50TA18 PO; +MULT-1203 PO; +PANT40SU PO; +SERT25TA5 PO; +[UNRECOGNIZED DRUG - CODE] PO
[2019-01-28 21:20] LABS: BASOPHILS % (AUTO) 1.3 % (0.0-5.0); EOSINOPHILS % (AUTO) 3.5 % (0.0-8.0); HEMATOCRIT 29.8 % (36-48); LYMPHOCYTES % (AUTO) 15.9 % (21.0-51.0); MEAN CORPUSCULAR HGB CONC 32.9 g/dL (32.0-36.0); MEAN CORPUSCULAR VOLUME 94.3 fL (79-99); NEUTROPHILS % (AUTO) 68.3 % (40.0-77.0); NUCLEATED RED BLOOD CELLS 0.1 % (0.0-0.19); PLATELET COUNT (AUTO) 205 K/uL (130-400); RED BLOOD CELL COUNT(AUTO) 3.16 MIL/uL (4.00-5.50); RED CELL DISTRIBUTION WIDTH 18.4 % (11.0-15.5); WHITE BLOOD COUNT (AUTO) 7.4 K/uL (4.8-10.8)
[2019-01-28 21:33] LABS: APPEARANCE,URINE Cloudy (CLEAR); BILIRUBIN,URINE Negative (NEGATIVE); COLOR,URINE Yellow (YELLOW); GLUCOSE, URINE (UA) TRACE mg/dL (NEGATIVE); KETONES,URINE Negative (NEGATIVE); LEUKOCYTE ESTERASE ,URINE Moderate (NEGATIVE); NITRATE,URINE Negative (NEGATIVE); OCCULT BLOOD,URINE Moderate (NEGATIVE); PROTEIN,URINE >=1000 mg/dL (NEGATIVE); UROBILINOGEN,URINE 0.2 mg/dL (0.2-1.0)
[2019-01-28 21:35] LABS: CREATININE 6.5 mg/dL (0.5-1.5); POTASSIUM 5.9 mmol/L (3.5-5.1)
[2019-01-28 21:38] LABS: INR 1.12 (0.85-1.15); PARTIAL THROMBOPLASTIN TIME 34.1 SEC (26.3-35.5); PROTHROMBIN TIME 11.7 SEC (9.6-11.6)
[2019-01-28 21:40] LABS: ALBUMIN 3.4 g/dL (3.5-5.0); BILIRUBIN,TOTAL 0.4 mg/dL (0.2-1.0); TOTAL PROTEIN, SERUM 6.9 g/dL (6.0-8.3)
[2019-01-28 21:48] LABS: BACTERIA,URINE Moderate /HPF (None Seen); MUCUS,URINE Moderate LPF (None Seen)
[2019-01-28] MEDS ORDERED: CEFTRIAXONE SODIUM 1 GM ONE (21:55)
[2019-01-28] MEDS ORDERED: SODIUM POLYSTYRENE SULFONATE 15 GM/60 ML ML ONE (21:55)
[2019-01-28] MEDS ORDERED: ALBUTEROL SULFATE 0.083% 2.5 MG/3 ML INH IH ONE (22:05)
[2019-01-28] MEDS: CEFTRIAXONE SODIUM 1 GM IVP SCH (22:15)
[2019-01-29] MEDS ORDERED: HYDRALAZINE HCL 20 MG/ML VIAL ONE ×3 (03:00→20:09)
[2019-01-29] MEDS ORDERED: DiphenhydrAMINE HCL 50 MG/ML VIAL ONE (05:20)
[2019-01-29 05:41] LABS: ALBUMIN 3.3 g/dL (3.5-5.0); BILIRUBIN,TOTAL 0.4 mg/dL (0.2-1.0); CREATININE 6.9 mg/dL (0.5-1.5); POTASSIUM 5.7 mmol/L (3.5-5.1); TOTAL PROTEIN, SERUM 7.4 g/dL (6.0-8.3)
[2019-01-29 06:48] LABS: HEMATOCRIT 31.2 % (36-48); LYMPHOCYTES % (AUTO) 11.8 % (21.0-51.0); MEAN CORPUSCULAR HEMOGLOBIN 30.7 pg (27.0-33.0); MEAN CORPUSCULAR HGB CONC 32.2 g/dL (32.0-36.0); MEAN CORPUSCULAR VOLUME 95.5 fL (79-99); NEUTROPHILS % (AUTO) 77.2 % (40.0-77.0); PLATELET COUNT (AUTO) 211 K/uL (130-400); RED BLOOD CELL COUNT(AUTO) 3.27 MIL/uL (4.00-5.50); RED CELL DISTRIBUTION WIDTH 18.5 % (11.0-15.5); WHITE BLOOD COUNT (AUTO) 6.5 K/uL (4.8-10.8)
[2019-01-29] MEDS: INSULIN HUMULIN R 100 UNIT/ML 3ML SQ SCH ×4 (07:30→21:19)
[2019-01-29] MEDS ORDERED: FAMOTIDINE 20MG TAB 20 MG TAB PO SCH (09:00)
[2019-01-29] MEDS: CEFTRIAXONE SODIUM 1 GM IVP SCH ×2 (10:15→22:08)
[2019-01-29] MEDS ORDERED: CEFTRIAXONE SODIUM 1 GM ONE (10:32)
[2019-01-29] MEDS ORDERED: SODIUM CHLORIDE 0.9% 100 ML IV ONE (10:33)
--- NOTE | 2019-01-29 16:00 | NUR ---
ER ADMIT TO ROOM 307, ADM.DATA COLLECTED.
[2019-01-29 16:25] VITALS: BP 181/79
[2019-01-29 19:00] VITALS: BP 192/87
[2019-01-29] MEDS ORDERED: HYDRALAZINE HCL 20 MG/ML VIAL IV PRN (20:15)
--- NOTE | 2019-01-29 20:30 | NUR ---
ASK IF I COULD VERIFY PATIENT'S HOME MEDICATIONS SINCE THEY HAD NOT BEEN UPDATED ON THE COMPUTER AND PATIENT GO UPSET, PATIENT STARTED COMPLIANIG OF CHEST DISCOMFORT AND SOB, HOSPITALIST CALLED, HOWEVER, AT THE SAME TIME AT BED TIME VERBALLY AGRESSIVE, THEATENING TO HAVE THE HOSPITAL CLOSED DOWN, BECAUSE HE WAS UPSET PATIENT HAD NOT BEEN STARTED ON HER HOME MEDICATIONS SINCE [facility]. CLAIMS HE HAD GIVEN AND HAD BEEN TOLD PATIENT WAS GETING HER HOME MEDICATIONS IN THE ER. UPSET WHEN FOUND OUT SHE WAS NOT. PATIENT AND SPOUSE COMPLAIN THAT SHE RECEIVED HYDRALAZINE IV IN THE MERGENCY ROOM AND THAT SHE IS ALLERGIC TO IT. UP SET BECAUSE PATIENT GOT HYDRALAZINE IN THE EMERGENCY ROOM INSTEAD OF HER HOME MEDICATION. PATIENT AND FAMILY EDUCATED ON CHEST PAIN AND THAT PATIENT WAS CURRENTLY HAVING HTN. AND BC SHE HAD COMPLAIN AND VERBALIZED OF CHEST DISCOMFORT , VICE PRINCIPAL HAD OREDRED CARDIAC ENZYMES, EKT AND MEDICATIONS , HOWEVER BOTH PATIENT AND REFUSED, CARDIAC ENZYMES BLOOD WORK AND THE OTHER MEDICATION. ANYTHING ASIDE FROM HER HOME MEDICATIONS PATIENT NOR WANT. BOTH SIGNED REFUSAL OF TREATMENT AFTER BEING THOROUGHLY EXPLAIN AND EDUCATION ON RISK OF REFUSING TREATMENT/
[2019-01-29] MEDS ORDERED: BACL5TAB PO (20:33)
[2019-01-29] MEDS ORDERED: LEFL10TA15 PO (20:33)
[2019-01-29] MEDS ORDERED: METOPROLOL TARTRATE 1 MG/ML 5ML VIAL IV PRN (20:45)
[2019-01-29] MEDS ORDERED: PHARMACY COMMUNICATION MISC SCH (20:45)
[2019-01-29] MEDS ORDERED: MORPHINE SULFATE 2 MG/ML 1ML SYG IVP PRN (20:45)
--- NOTE | 2019-01-29 20:45 | NUR ---
FINALLY PATIENT'S ALLOWED ME TO ENTER AND REVIEW PT'S HOME MEDICATION
[2019-01-29] MEDS ORDERED: METOPROLOL TARTRATE 50 MG TAB ONE (20:54)
--- NOTE | 2019-01-29 20:59 | NUR ---
PIPING MANAGER AWARE OF PT'S AND FAMILY STATUS OK TO GIVE HOME METOPROLOL AWARE OF PT'S EKG . NO NEW ORDES
[2019-01-29] MEDS ORDERED: ATORVASTATIN CALCIUM 40 MG TABLET PO SCH (21:00)
[2019-01-29] MEDS ORDERED: SIMETHICONE 80 MG TAB.CHEW PO PRN (21:00)
[2019-01-29] MEDS: METOPROLOL TARTRATE 50 MG TAB PO SCH (21:00)
--- NOTE | 2019-01-29 21:01 | NUR ---
MACHINE HEEL BUILDER AWARE PT IS RFUSINGCARDIAC ENZYMES
[2019-01-29] MEDS ORDERED: HYDR-4060 PO (22:32)
[2019-01-29] MEDS ORDERED: HYDROCODONE/ACETAMINOPHEN 5/325 MG TAB ONE (22:34)
[2019-01-29] MEDS ORDERED: HYDROCODONE/ACETAMINOPHEN 5/325 MG TAB PO PRN (22:45)
[2019-01-30] VITALS: BP 146/61
[2019-01-30 04:00] VITALS: BP 171/70
[2019-01-30 06:18] VITALS: BP 153/68
[2019-01-30] MEDS: INSULIN HUMULIN R 100 UNIT/ML 3ML SQ SCH ×2 (06:47→14:53)
[2019-01-30 08:00] VITALS: BP 175/82
[2019-01-30] MEDS: METOPROLOL TARTRATE 50 MG TAB PO SCH (08:34)
[2019-01-30] MEDS: CALCIUM ACETATE 667 MG CAPSULE PO SCH ×3 (08:40→18:16)
[2019-01-30] MEDS ORDERED: FAMOTIDINE 20MG TAB 20 MG TAB PO SCH (09:00)
[2019-01-30 11:00] VITALS: BP 170/68
--- NOTE | 2019-01-30 12:00 | NUR ---
Labs ordered before discharge, however patient refused anymore blood draws stating it hurts even with the butterfly needle. Refused any further labs. Jeramie Corrigan NP.
[2019-01-30] MEDS: CEFTRIAXONE SODIUM 1 GM IVP SCH (14:44)
[2019-01-30] MEDS ORDERED: CEFD300C3 PO (15:11)
--- NOTE | 2019-01-30 17:31 | NUR ---
D/C PLAN CM obtained information from medical record. Pt is readmission from about 3 weeks ago. Pt lives with spouse. Has wk, w/c, and cpap at home. Attends adult day care M-F. Also attends [facility] [place] [facility]. Plan to home to previous setting. Addendum: 01/30/19 at 1732 by FORREST CID CM Amended: Links added.
== END 2019-01-30 18:35 | disposition home or self-care (01) | DRG 391 ==
LOC: EDH 20:37 → EDHIP 22:25 → 4BH 01-29 16:17 → 3BH 01-29 16:20
PROVIDERS: ADMIT Internal Medicine; ATTEND Internal Medicine
PROC: 5A1D70Z Performance of Urinary Filtration, Intermittent, Less than 6 Hours Per Day (ICD-10-PCS; principal; 2019-01-29)
DX: R10.9 Unspecified abdominal pain (principal); N18.6 End stage renal disease; N39.0 Urinary tract infection, site not specified; I12.0 Hypertensive chronic kidney disease with stage 5 chronic kidney disease or end stage renal disease; J90 Pleural effusion, not elsewhere classified; J98.11 Atelectasis; E87.5 Hyperkalemia; D64.9 Anemia, unspecified; E11.22 Type 2 diabetes mellitus with diabetic chronic kidney disease; E66.01 Morbid (severe) obesity due to excess calories; Z68.38 Body mass index [BMI] 38.0-38.9, adult; E78.5 Hyperlipidemia, unspecified; E87.70 Fluid overload, unspecified; F20.9 Schizophrenia, unspecified; F31.9 Bipolar disorder, unspecified; H54.8 Legal blindness, as defined in USA; J44.9 Chronic obstructive pulmonary disease, unspecified; F99 Mental disorder, not otherwise specified; I25.10 Atherosclerotic heart disease of native coronary artery without angina pectoris; Z99.2 Dependence on renal dialysis; Z90.49 Acquired absence of other specified parts of digestive tract; Z90.710 Acquired absence of both cervix and uterus; Z88.2 Allergy status to sulfonamides; Z88.8 Allergy status to other drugs, medicaments and biological substances; Z87.440 Personal history of urinary (tract) infections; Z91.15 Patient's noncompliance with renal dialysis; Z91.19 Patient's noncompliance with other medical treatment and regimen; Z95.1 Presence of aortocoronary bypass graft; Z82.5 Family history of asthma and other chronic lower respiratory diseases; Z82.49 Family history of ischemic heart disease and other diseases of the circulatory system; Z83.3 Family history of diabetes mellitus; Z82.3 Family history of stroke
CPT/HCPCS: 36415; 71045; 74176; 80053; 81001; 82550; 82948; 83605; 84484; 85025; 85610; 85730; 87040; 87088; 90935; 93005; 94640; G0378; J0360; J0696; J1200; J1815

== ENCOUNTER 2019-04-09 19:22 | Emergency (ER) | payer MEDICARE ==
[~2019-04-09 19:22] MED LIST changes: +BACL5TAB PO; -BENZ200C53 PO; +CEFD300C3 PO; -CHOL100040 PO; +HYDR-4060 PO; -INSLAN SQ; +LEFL10TA15 PO
[2019-04-09 19:55] LABS: BASOPHILS % (AUTO) 0.6 % (0.0-5.0); EOSINOPHILS % (AUTO) 3.2 % (0.0-8.0); HEMATOCRIT 35.4 % (36-48); MEAN CORPUSCULAR HEMOGLOBIN 28.6 pg (27.0-33.0); MEAN CORPUSCULAR HGB CONC 30.5 g/dL (32.0-36.0); MEAN CORPUSCULAR VOLUME 93.7 fL (79-99); MONOCYTES % (AUTO) 10.2 % (3.0-13.0); NEUTROPHILS % (AUTO) 66.6 % (40.0-77.0); PLATELET COUNT (AUTO) 209 K/uL (130-400); RED BLOOD CELL COUNT(AUTO) 3.78 MIL/uL (4.00-5.50); RED CELL DISTRIBUTION WIDTH 17.1 % (11.0-15.5); WHITE BLOOD COUNT (AUTO) 7.7 K/uL (4.8-10.8)
[2019-04-09] MEDS ORDERED: HYDRALAZINE HCL 20 MG/ML VIAL ONE (19:59)
[2019-04-09 20:05] LABS: INR 1.12 (0.85-1.15); PARTIAL THROMBOPLASTIN TIME 29.4 SEC (26.3-35.5); PROTHROMBIN TIME 11.7 SEC (9.6-11.6)
[2019-04-09 20:27] LABS: POTASSIUM 5.7 mmol/L (3.5-5.1)
[2019-04-09 20:36] LABS: CREATININE 9.6 mg/dL (0.5-1.5)
== END 2019-04-09 22:26 | disposition home or self-care (01) ==
LOC: EDH 19:22
DX: R07.9 Chest pain, unspecified (principal); I10 Essential (primary) hypertension; F31.9 Bipolar disorder, unspecified; E11.9 Type 2 diabetes mellitus without complications; J44.9 Chronic obstructive pulmonary disease, unspecified; I25.810 Atherosclerosis of coronary artery bypass graft(s) without angina pectoris; F20.9 Schizophrenia, unspecified; Z79.4 Long term (current) use of insulin; Z88.1 Allergy status to other antibiotic agents; Z91.041 Radiographic dye allergy status; Z88.5 Allergy status to narcotic agent; Z88.8 Allergy status to other drugs, medicaments and biological substances
CPT/HCPCS: 36415; 71045; 80048; 82550; 84484; 85025; 85610; 85730; 93005; 96365; 96366; 99285; J0360